=== PATIENT | female | born 1945 | race Caucasian/White ===

== ENCOUNTER 2016-11-30 17:04 | Observation (INO) | payer MEDICARE, BC ==
[2016-11-30 17:04] VITALS: BMI 37.0
[2016-11-30] MEDS ORDERED: Albuterol-Ipratrop 3 mg / 0.5 (3 ml) UD INH STA (17:49)
[2016-11-30] MEDS ORDERED: Albuterol-Ipratrop 3 mg / 0.5 (3 ml) UD IH STA ×2 (17:49→17:50)
--- NOTE | 2016-11-30 17:50 | ED PDOC ---
HPI: General Adult Time Seen by Provider: 11/30/16 17:27 Chief Complaint (Nursing): Cough, Cold, Congestion Chief Complaint (Provider): Cough History Per: Patient History/Exam Limitations: no limitations Onset/Duration Of Symptoms: Days (Yesterday) Have you had recent travel within the past 21 days to any of the following countries: [place], [place], [place] or [place]?: No Current Symptoms Are (Timing): Still Present Additional Complaint(s): Cough, congestion, runny nose. Dyspnea. Seen by Dr. Camilo today and sent to the ER for possible pneumonia eval. No chest pain. Has weakness all over. Bodyaches. No abd pain. No nausea, vomit, diarrhea. Past Medical History Vital Signs: Last Vital Signs Temp 99.3 F 11/30/16 18:06 Pulse 67 11/30/16 17:17 Resp 18 11/30/16 17:17 BP 131/66 11/30/16 17:17 Pulse Ox 91 L 11/30/16 18:23 - Medical History PMH: Arthritis, CAD, Depression, HTN, Hypercholesterolemia Denies: Diabetes - Surgical History Surgical History: Denies: CABG - Family History Family History: States: Unknown Family Hx - Living Arrangements Living Arrangements: With Family - Social History Current smoker - smoking cessation education provided: No Alcohol: None Drugs: Denies - Home Medications Home Medications: Ambulatory Orders Medication Instructions Recorded Aspirin [Ecotrin] 81 mg PO HS 11/30/16 Boniva 150 mg PO Q30D 11/30/16 Ergocalciferol (Vitamin D2) 50,000 unit PO SUN 11/30/16 [Vitamin D2] Escitalopram [Lexapro] 20 mg PO HS 11/30/16 Fluticasone Propionate [Flonase] 1 spray HEIKE BID PRN 11/30/16 Loratadine [Claritin] 10 mg PO DAILY PRN 11/30/16 Simvastatin [Zocor] 40 mg PO DAILY 11/30/16 Valsartan/Hydrochlorothiazide 1 tab PO DAILY 11/30/16 [Diovan Hct 320-25 mg Tablet] amLODIPine [Norvasc] 5 mg PO DAILY 11/30/16 - Allergies Allergies/Adverse Reactions: Allergies Allergy/AdvReac Type Severity Reaction Status Date / Time No Known Allergies Allergy Verified 11/30/16 17:16 Review of Systems ROS Statement: Except As Marked, All Systems Reviewed And Found Negative Constitutional: Positive for: Weakness ENT: Positive for: Nose Congestion Respiratory: Positive for: Cough, Shortness of Breath Neurological: Positive for: Weakness Physical Exam - Reviewed Nursing Documentation Reviewed: Yes Vital Signs Reviewed: Yes - Physical Exam Appears: Positive for: Non-toxic, No Acute Distress Head Exam: Positive for: ATRAUMATIC, NORMAL INSPECTION, NORMOCEPHALIC Skin: Positive for: Normal Color, Warm, DRY Eye Exam: Positive for: EOMI, Normal appearance, PERRL ENT: Positive for: Normal ENT Inspection Neck: Positive for: Normal, Painless ROM Cardiovascular/Chest: Positive for: Regular Rate, Rhythm Respiratory: Positive for: Decreased Breath Sounds, Wheezing (b/l). Negative for: Accessory Muscle Use Gastrointestinal/Abdominal: Positive for: Normal Exam, Bowel Sounds, Soft. Negative for: Tenderness Back: Positive for: Normal Inspection. Negative for: L CVA Tenderness, R CVA Tenderness Extremity: Positive for: Normal ROM. Negative for: Tenderness, Pedal Edema Neurologic/Psych: Positive for: Alert, Oriented - Laboratory Results Result Diagrams: 11/30/16 17:30 Interpretation Of Abn Labs: 13.1 wbc, 2.2 lactate - ECG ECG Rhythm: Positive for: Left Bundle Branch Block O2 Sat by Pulse Oximetry: 91 Pulse Ox Interpretation: Abnormal - Radiology X-Ray: Read By Radiologist X-Ray Interpretation: No Acute Disease - Progress ED Course And Treament: 180: Dr. Camilo saw pt. in office and gave rocephin. 1826: Spoke with Dr. Camilo. Will admit tele. Will give further orders when pt. reaches floor. LBBB possibly old as discussed with Dr. Camilo, but will get cardiac work up for further eval. Does not meet sepsis criteria. Disposition - Clinical Impression Clinical Impression: Bronchitis, Hypoxia - Patient ED Disposition Is Patient to be Admitted: Yes Counseled Patient/Family Regarding: Studies Performed, Diagnosis - Disposition Disposition Time: 18:53 Condition: STABLE - Pt Status Changed To: Hospital Disposition Of: Inpatient - Admit Certification Admit to Inpatient:: After my assessment, the patient will require hospitalization for at least two midnights. This is because of the severity of symptoms shown, intensity of services needed, and/or the medical risk in this patient being treated as an outpatient. - POA Present On Arrival: None
[2016-11-30] MEDS ORDERED: Albuterol-Ipratrop 3 mg / 0.5 (3 ml) UD ONE (18:00)
[2016-11-30 18:06] LABS: BASO # 0.1 K/uL (0.0-0.2); BASO % 0.8 % (0.0-2.0); EOS # 0.3 K/uL (0.0-0.7); EOS % 2.2 % (0.0-4.0); LYMPH # 5.4 K/uL (1.0-4.3); MEAN CELL VOLUME 83.2 fl (81.0-99.0); MEAN CORPUSCULAR HEMOGLOBIN 27.8 pg (27.0-31.0); MEAN CORPUSCULAR HGB CONC 33.5 g/dL (33.0-37.0); MEAN PLATELET VOLUME 7.9 fl (7.2-11.7); MONO # 0.8 K/uL (0.0-0.8); NEUT # 6.6 K/uL (1.8-7.0); NRBC % 0.2 % (0.0-0.0); RED CELL DISTRIBUTION WIDTH 14.6 % (11.5-14.5); WHITE BLOOD COUNT 13.1 K/uL (4.8-10.8)
[2016-11-30] MEDS: Sodium Chloride 0.9% 500 ML IV SCH (18:08)
[2016-11-30] MEDS ORDERED: Azithromycin 500 MG in Sodium Chloride 0.9% 250 ML IVPB ONE (18:15)
[2016-11-30 18:23] LABS: PARTIAL THROMBOPLASTIN TIME 31.1 Seconds (25.6-37.1)
[2016-11-30 18:32] LABS: ALB/GLOB RATIO 1.1 (1.0-2.1); ALKALINE PHOSPHATASE 65 U/L (38-126); ALT/SGPT 25 U/L (9-52); AST/SGOT 31 U/L (14-36); BILIRUBIN,TOTAL 0.9 mg/dl (0.2-1.3); BLOOD UREA NITROGEN 13 mg/dl (7-17); CALCIUM 9.6 mg/dL (8.4-10.2); CARBON DIOXIDE 32 mmol/L (22-30); CHLORIDE 96 mmol/L (98-107); GFR AFRICAN-AMERICAN > 60; GLUCOSE,RANDOM 114 mg/dL (65-105); MAGNESIUM 2.3 MG/DL (1.6-2.3); PHOSPHOROUS 3.5 mg/dl (2.5-4.5); SODIUM 140 mmol/l (132-148); TOTAL PROTEIN 8.4 G/DL (6.3-8.2)
[2016-11-30 18:33] LABS: POTASSIUM 3.5 MMOL/L (3.6-5.0)
--- NOTE | 2016-11-30 18:39 | RAD ---
HISTORY: Sepsis Patient COMPARISON: 10/21/2013 FINDINGS: LUNGS: The lungs are clear. PLEURA: No significant pleural effusion identified, no pneumothorax apparent. CARDIOVASCULAR: Normal. OSSEOUS STRUCTURES: No significant abnormalities. VISUALIZED UPPER ABDOMEN: Normal. OTHER FINDINGS: None. IMPRESSION: No active pulmonary disease.
[2016-11-30 18:52] LABS: ABG ALLEN TEST YES; ARTERIAL BLOOD GAS HCO3 30.6 mmol/L (21-28); ARTERIAL BLOOD GAS PH 7.54 (7.35-7.45); ARTERIAL BLOOD GAS PO2 95 mm/Hg (80-100)
[2016-11-30] MEDS ORDERED: Potassium Chloride 20 mEq ER Tab PO ONE (19:34)
[2016-11-30] MEDS ORDERED: BONIVA 150 MG PO SCH (19:45)
[2016-11-30] MEDS: methylPREDNISolone 80 MG in Sodium Chloride 0.9% 50 ML IVPB SCH (22:17)
[2016-12-01] MEDS: methylPREDNISolone 80 MG in Sodium Chloride 0.9% 50 ML IVPB SCH (00:13)
[2016-12-01] MEDS: Sodium Chloride 0.9% 500 ML IV SCH ×3 (00:19→14:00)
[2016-12-01] MEDS: Albuterol 0.083% Inhal Sol (2.5 mg/3 mL) UD INH PRN ×2 (01:41→07:54)
[2016-12-01 05:00] LABS: RBC URINE 1 /hpf (0-3); URINE BILIRUBIN NEGATIVE (NEGATIVE); URINE BLOOD NEGATIVE (NEGATIVE); URINE COLOR STRAW (YELLOW); URINE GLUCOSE (UA) >=500 mg/dL (Normal); URINE KETONE NEGATIVE (NEGATIVE); URINE LEUKOCYTE ESTERASE NEG Leu/uL (Negative); URINE PROTEIN NEGATIVE (NEGATIVE); URINE UROBILINOGEN 0.2-1.0 mg/dL (0.2-1.0); WBC URINE 1 /hpf (0-5)
[2016-12-01 08:10] LABS: HEMATOCRIT 38.8 % (34.0-47.0); MEAN CELL VOLUME 82.8 fl (81.0-99.0); MEAN CORPUSCULAR HEMOGLOBIN 27.7 pg (27.0-31.0); MEAN CORPUSCULAR HGB CONC 33.5 g/dL (33.0-37.0); RED CELL DISTRIBUTION WIDTH 14.8 % (11.5-14.5); WHITE BLOOD COUNT 5.9 K/uL (4.8-10.8)
[2016-12-01 08:16] LABS: BLOOD UREA NITROGEN 18 mg/dl (7-17); CALCIUM 8.8 mg/dL (8.4-10.2); CARBON DIOXIDE 26 mmol/L (22-30); CHLORIDE 100 mmol/L (98-107); GFR AFRICAN-AMERICAN > 60; GLUCOSE,RANDOM 212 mg/dL (65-105); SODIUM 138 mmol/l (132-148)
[2016-12-01 08:22] LABS: POTASSIUM 3.7 MMOL/L (3.6-5.0)
[2016-12-01] MEDS ORDERED: Azithromycin 500 MG in Sodium Chloride 0.9% 250 ML IVPB SCH (09:00)
[2016-12-01] MEDS ORDERED: Enoxaparin 40 mg Syringe SC SCH (09:00)
[2016-12-01] MEDS ORDERED: methylPREDNISolone 60 MG in Sodium Chloride 0.9% 50 ML IVPB SCH (09:00)
[2016-12-01] MEDS ORDERED: Patient's Own Med (Valsartan/Hydrochlorothiazide [Diovan Hct 320-25 Mg Tablet] 1 TAB) PO SCH (09:00)
--- NOTE | 2016-12-01 09:34 | CP.PCM.CON ---
History of Present Illness - History of Present Illness History of Present Illness: Asked to evaluate this 71-year-old Hungarian speaking female because of cough and shortness of breath. She abruptly developed the above symptoms on the day of admission associated with headache, sore throat, cough and chills along with chest and abdominal pain thought to be secondary to her coughing. She had gone to bed the night before feeling well but awoke with the above symptoms. Her symptoms progressed throughout the day and she saw her primary medical doctor as an outpatient and was advised to come to the emergency room for further evaluation. There was no nausea, vomiting or diarrhea. There were no ill contacts. There was nasal congestion associated with the above symptoms along with a sensation of postnasal drip, but no sputum was expectorated and there was no hemoptysis. She does have a prior history of pneumonia in the remote past. She was a brief cigarette smoker in the remote past as well. There is no history of bronchial asthma. She relates no history of allergies. A chest x-ray done in the emergency department showed no evidence of consolidation or pleural effusion but did cardiomegaly with straightening of left heart border. Past Patient History - Past Medical History & Family History Past Medical History?: Yes - Past Social History Smoking Status: Former Smoker Chewing Tobacco Use: No Cigar Use: No Alcohol: Social Drugs: Denies - CARDIAC Hx Cardiac Disorders: Yes Hx Hypercholesterolemia: Yes Hx Hypertension: Yes - PULMONARY Hx Pneumonia: Yes - NEUROLOGICAL Hx Neurological Disorder: No - HEENT Hx HEENT Problems: Yes - RENAL Hx Chronic Kidney Disease: No - ENDOCRINE/METABOLIC Hx Endocrine Disorders: No - HEMATOLOGICAL/ONCOLOGICAL Hx Blood Disorders: No - INTEGUMENTARY Hx Dermatological Problems: No - MUSCULOSKELETAL/RHEUMATOLOGICAL Hx Arthritis: Yes Hx Falls: No - GASTROINTESTINAL Hx Gastrointestinal Disorders: No - GENITOURINARY/GYNECOLOGICAL Hx Genitourinary Disorders: No - PSYCHIATRIC Hx Depression: Yes Hx Substance Use: No - SURGICAL HISTORY Hx Section: Yes Hx Coronary Artery Bypass Graft: No - ANESTHESIA Hx Anesthesia: Yes Hx Anesthesia Reactions: No Hx Malignant Hyperthermia: No Has any member of the family had a problem w/ anesthesia?: No Meds Allergies/Adverse Reactions: Allergies Allergy/AdvReac Type Severity Reaction Status Date / Time No Known Allergies Allergy Verified 11/30/16 17:16 - Medications Medications: Current Medications Albuterol Sulfate (Albuterol 0.083% Inhal Yanira (2.5 Mg/3 Ml) Ud) 2.5 mg INH RQ6 PRN PRN Reason: Shortness of Breath Last Admin: 12/01/16 07:54 Dose: 2.5 mg Amlodipine Besylate (Norvasc) 5 mg PO DAILY [facility] Last Admin: 12/01/16 08:55 Dose: 5 mg Aspirin (Ecotrin) 81 mg PO HS [facility] Last Admin: 11/30/16 22:59 Dose: 81 mg Enoxaparin Sodium (Lovenox) 40 mg SC DAILY [facility] PRN Reason: Protocol Last Admin: 12/01/16 08:55 Dose: 40 mg Ergocalciferol (Drisdol 50,000 Intl Units Cap) 1 cap PO SUN [facility] Escitalopram Oxalate (Lexapro) 20 mg PO HS [facility] Last Admin: 11/30/16 22:59 Dose: 20 mg Fluticasone Propionate (Flonase) 1 spr HEIKE BID PRN PRN Reason: Allergy symptoms Home Med (Boniva ) 150 mg PO Q30D [facility] Hydrochlorothiazide (Hydrodiuril) 25 mg PO DAILY [facility] Last Admin: 12/01/16 08:55 Dose: 25 mg Sodium Chloride (Sodium Chloride 0.9%) 500 mls @ 100 mls/hr IV .Q5H [facility] Last Admin: 12/01/16 00:19 Dose: Not Given Ceftriaxone Sodium 1 gm/ (Sodium Chloride) 100 mls @ 100 mls/hr IVPB DAILY [facility] Azithromycin 500 mg/ Sodium (Chloride) 250 mls @ 250 mls/hr IVPB DAILY [facility] Methylprednisolone 60 mg/ (Sodium Chloride) 50 mls @ 100 mls/hr IVPB Q12 [facility] Loratadine (Claritin) 10 mg PO DAILY PRN PRN Reason: Allergy symptoms Valsartan (Diovan) 320 mg PO DAILY [facility] Last Admin: 12/01/16 08:54 Dose: 320 mg Physical Exam - Additional Findings Additional findings: Well-nourished, well-developed female sitting in wheelchair at the time of examination. Awake, alert and cooperative with the examination. Pharynx is pink and mucous membranes are moist. No exudate. Conjunctivae are pink and there is no scleral icterus. Nares are patent bilaterally. No bleeding or exudate. Neck is supple and trachea is midline. No neck vein distention or carotid bruit. No palpable lymphadenopathy. No dullness on chest percussion. Equal expansion. Breath sounds are well heard bilaterally. No rales. No wheezes. Sonorous rhonchi are heard in the dependant zones posteriorly. No bronchial breathing or egophony. Heart sounds are well heard and rhythm is regular. Systolic ejection murmur is heard at the base. Abdomen is soft and nontender with normal bowel sounds. No ankle edema. No cyanosis. Both feet are warm to touch. Results - Vital Signs Recent Vital Signs: Last Vital Signs Temp 97.6 F 12/01/16 08:00 Pulse 57 L 12/01/16 08:55 Resp 20 12/01/16 08:00 BP 125/96 H 12/01/16 08:55 Pulse Ox 96 12/01/16 08:00 - Labs Result Diagrams: 12/01/16 08:00 12/01/16 08:00 Labs: Laboratory Results - last 24 hr 11/30/16 11/30/16 12/01/16 21:45 21:45 03:30 WBC RBC Hgb Hct MCV MCH MCHC RDW Plt Count D-Dimer, Quantitative 0.26 Sodium Potassium Chloride Carbon Dioxide Anion Gap BUN Creatinine Est GFR ( Amer) Est GFR (Non-Af Amer) Random Glucose Calcium Troponin I < 0.0120 Urine Color Straw Urine Clarity Clear Urine pH 6.0 Ur Specific [place] 1.006 Urine Protein Negative Urine Glucose (UA) >=500 Urine Ketones Negative Urine Blood Negative Urine Nitrate Negative Urine Bilirubin Negative Urine Urobilinogen 0.2-1.0 Ur Leukocyte Esterase Neg Urine RBC (Auto) 1 Urine Microscopic WBC 1 Ur Squamous Epith Cells 2 12/01/16 12/01/16 08:00 08:00 WBC 5.9 D RBC 4.69 Hgb 13.0 Hct 38.8 MCV 82.8 MCH 27.7 MCHC 33.5 RDW 14.8 H Plt Count 195 D-Dimer, Quantitative Sodium 138 Potassium 3.7 Chloride 100 Carbon Dioxide 26 Anion Gap 16 BUN 18 H Creatinine 0.6 L Est GFR ( Amer) > 60 Est GFR (Non-Af Amer) > 60 Random Glucose 212 H Calcium 8.8 Troponin I Urine Color Urine Clarity Urine pH Ur Specific [place] Urine Protein Urine Glucose (UA) Urine Ketones Urine Blood Urine Nitrate Urine Bilirubin Urine Urobilinogen Ur Leukocyte Esterase Urine RBC (Auto) Urine Microscopic WBC Ur Squamous Epith Cells Assessment & Plan (1) Influenza-like illness Status: Acute Priority: High (2) Posterior rhinorrhea Status: Acute Priority: High (3) Acute rhinosinusitis Status: Acute Priority: High (4) Pneumonia Status: Acute Priority: High Comment: Repeat chest x-ray PA and lateral does reveal hilar prominence bilaterally with vascular congestive pattern as well as possible early infiltrate infrahilar region of the right lower lobe. - Assessment and Plan (Free Text) Plan: Agree with current plan including treatment with empiric antibiotics for community-acquired pneumonia. Influenza A/B nasal swab requested. Would add oseltamivir if positive. - Date & Time Date: 12/01/16 Time: 09:57
[2016-12-01 12:04] VITALS: TEMP 98.4
--- NOTE | 2016-12-01 13:01 | RAD ---
HISTORY: r/o pneumonia COMPARISON: 11/30/2016 TECHNIQUE: Chest PA and lateral FINDINGS: LUNGS: Mild left perihilar interstitial changes. PLEURA: No significant pleural effusion identified. No pneumothorax apparent. CARDIOVASCULAR: Normal. OSSEOUS STRUCTURES: No significant abnormalities. VISUALIZED UPPER ABDOMEN: Normal. OTHER FINDINGS: None. IMPRESSION: Mild left perihilar interstitial changes possibly vascular.
--- NOTE | 2016-12-01 14:07 | CON ---
DATE: 12/01/2016 REASON FOR CONSULTATION: Shortness of breath and cough. HISTORY OF PRESENT ILLNESS: The patient is a 71-year-old Latvian female who is a former smoker, quit 20 years ago, presented because of shortness of breath and cough. The patient denies any retrosternal chest pain and is unaware of any history of heart attack in the past. The patient stated that she has history of asthma. She also has a history of pneumonia a few years ago. The patient does report improvement of her shortness of breath since admission yesterday. SOCIAL HISTORY: The patient is a former smoker, quit 20 years ago. MEDICATIONS: Albuterol inhaler 2.5 mg q. 6 hours, Zithromax 500 mg intravenously daily, Rocephin 1 gram intravenously daily, Claritin 10 mg daily, Diovan 320 mg daily, aspirin 81 mg once a day, Flonase 1 spray nasally twice a day, hydrochlorothiazide 25 mg daily, Lexapro 20 mg once a day, Lovenox 40 mg subcutaneous once a day, Norvasc 5 mg once a day, Solu-Medrol 60 mg intravenously q. 6 hours. Normal saline at 100 mL an hour, that was discontinued today. REVIEW OF SYSTEMS: No fever or chills. No dizziness or syncope. No palpitation, no nausea or vomiting. PHYSICAL EXAMINATION: GENERAL: The patient is an elderly female who does not appear to be in acute distress. VITAL SIGNS: Blood pressure 121/68, heart rate 68, temperature 98.4, respirations 18. HEENT: Normocephalic. NECK: No JVD. CHEST: Bilateral rhonchi anteriorly. No wheeze or crackles. HEART: S1, S2 regular. ABDOMEN: Soft. EXTREMITIES: No edema. LABORATORY DATA: CBC: WBC 5.9, hemoglobin , hematocrit 38.8, platelet count 195,000. Yesterday's white count _elevated. SMA-7: Sodium 138, potassium 3.7 , chloride 100, CO2 26, glucose 212, BUN 18, creatinine 0.6. Two sets of troponins were negative. EKG revealed sinus rhythm at a rate of 73, left bundle branch block. Chest x-ray revealed normal cardiac silhouette and bilateral hilar infiltrates. ASSESSMENT: 1. Consider underlying pneumonia. 2. Abnormal EKG with evidence of left bundle branch block. 3. Hypertension. 4. Bronchospasm. RECOMMENDATIONS: Continue current IV Zithromax and IV Rocephin. Continue Diovan at 320 mg once a day, aspirin 81 mg once a day, hydrochlorothiazide 25 mg once a day, Lovenox 40 mg subcutaneous once a day, methylprednisolone 60 mg intravenous twice a day, amlodipine 5 mg once a day. I will review the echocardiographic study performed today. Cullen Arzate MD cc: [id number] TT: 12/01/2016 14:07:09 Confirmation # [id number] Dictation # [id number] MTDD
[2016-12-01 16:07] VITALS: BP 127/70; PULSE 71; RESP 20; O2SAT 97
--- NOTE | 2016-12-01 17:05 | CP.PCM.HP ---
History of Present Illness - History of Present Illness History of Present Illness: Patient is 71 y/o lady presented in the ER for SOB, wheezing and hypoxia. Initial dx was suggestive of pneumonia. She well imbrued with steroid and antx rx. The repeated cxr reveled no pneumonia. Patient stable with Nl O2 sat Ambulating with no problems. Chance admission status to obs (44), will dc home with f/u in my office in 2 days Present on Admission - Present on Admission Any Indicators Present on Admission: No Review of Systems - Constitutional Constitutional: As Per HPI - EENT Eyes: As Per HPI Ears: As Per HPI Nose/Mouth/Throat: As Per HPI - Breasts Breasts: As Per HPI - Cardiovascular Cardiovascular: As Per HPI - Respiratory Respiratory: Dyspnea, Wheezing - Gastrointestinal Gastrointestinal: As Per HPI - Musculoskeletal Musculoskeletal: As Per HPI - Integumentary Integumentary: As Per HPI - Neurological Neurological: As Per HPI Past Patient History - Past Medical History & Family History Past Medical History?: Yes - Past Social History Smoking Status: Former Smoker Chewing Tobacco Use: No Cigar Use: No Alcohol: Social Drugs: Denies - CARDIAC Hx Cardiac Disorders: Yes Hx Hypercholesterolemia: Yes Hx Hypertension: Yes - PULMONARY Hx Pneumonia: Yes - NEUROLOGICAL Hx Neurological Disorder: No - HEENT Hx HEENT Problems: Yes - RENAL Hx Chronic Kidney Disease: No - ENDOCRINE/METABOLIC Hx Endocrine Disorders: No - HEMATOLOGICAL/ONCOLOGICAL Hx Blood Disorders: No - INTEGUMENTARY Hx Dermatological Problems: No - MUSCULOSKELETAL/RHEUMATOLOGICAL Hx Arthritis: Yes Hx Falls: No - GASTROINTESTINAL Hx Gastrointestinal Disorders: No - GENITOURINARY/GYNECOLOGICAL Hx Genitourinary Disorders: No - PSYCHIATRIC Hx Depression: Yes Hx Substance Use: No - SURGICAL HISTORY Hx Section: Yes Hx Coronary Artery Bypass Graft: No - ANESTHESIA Hx Anesthesia: Yes Hx Anesthesia Reactions: No Hx Malignant Hyperthermia: No Has any member of the family had a problem w/ anesthesia?: No Meds Home Medications: Home Medication List Medication Instructions Recorded Confirmed Type Albuterol Sulfate [Proair Hfa] 200 puff IH Q6 30 Days 12/01/16 Rx Methylprednisolone [Medrol Dose 4 mg PO DAILY #21 mg 12/01/16 Rx Pack (21 tabs)] Moxifloxacin [Avelox] 400 mg PO DAILY #7 tab 12/01/16 Rx Allergies/Adverse Reactions: Allergies Allergy/AdvReac Type Severity Reaction Status Date / Time No Known Allergies Allergy Verified 11/30/16 17:16 Physical Exam - Constitutional Appears: Well - Head Exam Head Exam: ATRAUMATIC, NORMAL INSPECTION, NORMOCEPHALIC - Eye Exam Eye Exam: EOMI, Normal appearance, PERRL Pupil Exam: NORMAL ACCOMODATION - ENT Exam ENT Exam: Mucous Membranes Moist - Neck Exam Neck exam: Positive for: Normal Inspection - Respiratory Exam Respiratory Exam: Clear to Auscultation Bilateral - Cardiovascular Exam Cardiovascular Exam: REGULAR RHYTHM, +S1, +S2 - GI/Abdominal Exam GI & Abdominal Exam: Normal Bowel Sounds - Extremities Exam Extremities exam: Positive for: normal inspection - Neurological Exam Neurological exam: Alert, CN II-XII Intact, Oriented x3, Reflexes Normal - Psychiatric Exam Psychiatric exam: Normal Affect Results - Vital Signs Recent Vital Signs: Last Vital Signs Temp 98.4 F 12/01/16 16:07 Pulse 71 12/01/16 16:07 Resp 20 12/01/16 16:07 BP 127/70 12/01/16 16:07 Pulse Ox 97 12/01/16 16:07 - Labs Result Diagrams: 12/01/16 08:00 12/01/16 08:00 Labs: Laboratory Results - last 24 hr 11/30/16 11/30/16 12/01/16 21:45 21:45 03:30 WBC RBC Hgb Hct MCV MCH MCHC RDW Plt Count D-Dimer, Quantitative 0.26 Sodium Potassium Chloride Carbon Dioxide Anion Gap BUN Creatinine Est GFR ( Amer) Est GFR (Non-Af Amer) Random Glucose Calcium Troponin I < 0.0120 Urine Color Straw Urine Clarity Clear Urine pH 6.0 Ur Specific [place] 1.006 Urine Protein Negative Urine Glucose (UA) >=500 Urine Ketones Negative Urine Blood Negative Urine Nitrate Negative Urine Bilirubin Negative Urine Urobilinogen 0.2-1.0 Ur Leukocyte Esterase Neg Urine RBC (Auto) 1 Urine Microscopic WBC 1 Ur Squamous Epith Cells 2 Influenza Typ A,B (EIA) 12/01/16 12/01/16 12/01/16 08:00 08:00 12:38 WBC 5.9 D RBC 4.69 Hgb 13.0 Hct 38.8 MCV 82.8 MCH 27.7 MCHC 33.5 RDW 14.8 H Plt Count 195 D-Dimer, Quantitative Sodium 138 Potassium 3.7 Chloride 100 Carbon Dioxide 26 Anion Gap 16 BUN 18 H Creatinine 0.6 L Est GFR ( Amer) > 60 Est GFR (Non-Af Amer) > 60 Random Glucose 212 H Calcium 8.8 Troponin I Urine Color Urine Clarity Urine pH Ur Specific [place] Urine Protein Urine Glucose (UA) Urine Ketones Urine Blood Urine Nitrate Urine Bilirubin Urine Urobilinogen Ur Leukocyte Esterase Urine RBC (Auto) Urine Microscopic WBC Ur Squamous Epith Cells Influenza Typ A,B (EIA) Negative for flu a/b Assessment & Plan (1) Asthmatic bronchitis Status: Acute (2) Bronchitis Status: Acute (3) Cough Status: Acute Priority: High (4) Hypoxia Status: Resolved (5) Pneumonia Status: Ruled-out Priority: High - Assessment and Plan (Free Text) Plan: Patient stable for dc will follow as OP. Continue oral medications
[2016-12-02] MEDS ORDERED: Ergocalciferol 50,000 Intl Units Cap PO SCH (09:00)
--- NOTE | 2016-12-02 14:43 | CARD ---
APPROVED REPORT EKG Measurement Heart [id number] <Conclusion> Normal sinus rhythm Left bundle branch block Abnormal ECG
--- NOTE | 2016-12-03 18:50 | CARD ---
APPROVED REPORT EXAM: Two-dimensional and M-mode echocardiogram with Doppler and color Doppler. Other Information Quality : Technically LimitedRhythm : Technically limited study due to body habitus. INDICATION ICD: Cardiomegaly, CHF 2D DIMENSIONS IVSd0.72 (0.7-1.1cm)LVDd4.35 (3.9-5.9cm) LVOT Diameter1.74 (1.8-2.4cm)PWd1.07 (0.7-1.1cm) IVSs1.13 (0.8-1.2cm)LVDs2.52 (2.5-4.0cm) FS (%) 42.2 %PWs1.46 (0.8-1.2cm) Aortic Valve AoV Peak Lcwnujty270.3cm/sAoV VTI43.3cmAO Peak GR.17mmHg LVOT Peak Tqubqbly531.1cm/Francis Mean GR.9mmHgAVA (VMAX)0.94cm2 Mitral Valve MV E [place]78.6cm/sMV DECEL [id number] A Xpilwkke559.1cm/s MV KUR96rcC/A ratio0.8MVA (PHT)2.22cm2 TDI Lateral E' Peak V9.13cm/sMedial E' Peak V9.78cm/sE/Lateral E'10.1 E/Medial E'9.5 Pulmonary Valve PV Peak Kjvhhkke086.9cm/s Tricuspid Valve TR Peak Oemlbnfa232vo/sRAP [id number] Peak Gr.40mmHg LLII37dzVw LEFT VENTRICLE The left ventricle is normal size. There is normal left ventricular wall thickness. The left ventricular function is normal. The left ventricular ejection fraction is within the normal range. The Ejection Fraction is 60-65%. There is normal LV segmental wall motion. The left ventricular diastolic function is normal. No left ventricle thrombus noted on this study. There is no mass noted in the left ventricle. RIGHT VENTRICLE The right ventricle is normal size. There is normal right ventricular wall thickness. The right ventricular systolic function is normal. ATRIA The left atrium size is normal. The right atrium size is normal. The interatrial septum is intact with no evidence for an atrial septal defect. AORTIC VALVE The aortic valve is normal in structure and function. No aortic regurgitation is present. There is no aortic valvular stenosis. There is no aortic valvular vegetation. MITRAL VALVE The mitral valve is normal in structure and function. There is no evidence of mitral valve prolapse. There is no mitral valve stenosis. There is no mitral valve regurgitation noted. TRICUSPID VALVE The tricuspid valve is normal in structure and function. There is no tricuspid valve regurgitation noted. There is no tricuspid valve prolapse or vegetation. There is no tricuspid valve stenosis. PULMONIC VALVE The pulmonary valve is normal in structure and function. There is no pulmonic valvular regurgitation. There is no pulmonic valvular stenosis. GREAT VESSELS The aortic root is normal in size. The ascending aorta is normal in size. The pulmonary artery is normal. The IVC is normal in size and collapses >50% with inspiration. PERICARDIAL EFFUSION The pericardium appears normal. There is no pleural effusion. <Conclusion> The left ventricle is normal size. The left ventricular function is normal. The left ventricular ejection fraction is within the normal range. The Ejection Fraction is 60-65%.
== END 2016-12-01 18:02 | disposition home or self-care (01) ==
LOC: H.ER 17:04 → INTOOBSV 18:57 → H.ERHOLD 18:57 → H.TEL 21:54
PROVIDERS: ADMIT Internal Medicine; ATTEND Internal Medicine
DX: J45.909 Unspecified asthma, uncomplicated (principal); E78.00 Pure hypercholesterolemia, unspecified; I25.10 Atherosclerotic heart disease of native coronary artery without angina pectoris; I44.7 Left bundle-branch block, unspecified; R09.02 Hypoxemia; Z87.891 Personal history of nicotine dependence; I10 Essential (primary) hypertension; F32.9 Major depressive disorder, single episode, unspecified; M19.90 Unspecified osteoarthritis, unspecified site
CPT/HCPCS: 36415; 71010; 71020; 80048; 80053; 81003; 82803; 83735; 83880; 84100; 84484; 85025; 85027; 85378; 85610; 85730; 86738; 87040; 87804; 93005; 93306; 94150; 94640; 96374; 99285; G0378; J0456; J0696; J1650; J2930; J7040

== ENCOUNTER 2017-04-08 16:14 | Emergency (ER) | payer MEDICARE, BC ==
[2017-04-08 16:15] VITALS: BMI 37.0
[2017-04-08 16:24] VITALS: BP 135/60; PULSE 74; RESP 18; TEMP 98.6; O2SAT 98
[2017-04-08] MEDS ORDERED: Sodium Chloride 0.9% 1,000 ML IV STA (16:44)
--- NOTE | 2017-04-08 17:19 | ED PDOC ---
HPI: General Adult Time Seen by Provider: 04/08/17 16:20 Chief Complaint (Nursing): GI Problem Chief Complaint (Provider): Dehydration, URI History Per: Patient History/Exam Limitations: no limitations Onset/Duration Of Symptoms: Days Have you had recent travel within the past 21 days to any of the following countries: [place], [place], [place] or [place]?: No Current Symptoms Are (Timing): Still Present Additional History Per: Patient Additional Complaint(s): 71yo female, past medical history of hypertension, hypercholesterolemia, cardiac stents, is sent to the ED by her PCP Dr. Camilo due to dehydration and a recent diagnosis of UTI. Patient reports 6 days ago, she had vomiting and diarrhea for 3 days. Patient reports since the past 3 days, she has not had diarrhea but is feeling nauseous and weak; states she has had decreased PO intake. Patient reports she visited her PCP today and was diagnosed with a UTI and given antibiotics; patient denies any improvement in her symptoms. She offers no other medical complaints. Past Medical History Reviewed: Historical Data, Nursing Documentation, Vital Signs Vital Signs: Last Vital Signs Temp 98.6 F 04/08/17 16:19 Pulse 74 04/08/17 16:19 Resp 18 04/08/17 16:19 BP 135/60 04/08/17 16:19 Pulse Ox 98 04/09/17 20:45 - Medical History PMH: Arthritis, CAD, Depression, HTN, Hypercholesterolemia, Pneumonia Denies: Diabetes, Chronic Kidney Disease - Surgical History Surgical History: Coronary Stent Denies: CABG - Family History Family History: States: No Known Family Hx, Unknown Family Hx - Social History Current smoker - smoking cessation education provided: No Alcohol: None Drugs: Denies - Home Medications Home Medications: Ambulatory Orders Medication Instructions Recorded Aspirin [Ecotrin] 81 mg PO HS 11/30/16 Boniva 150 mg PO Q30D 11/30/16 Ergocalciferol (Vitamin D2) 50,000 unit PO SUN 11/30/16 [Vitamin D2] Escitalopram [Lexapro] 20 mg PO HS 11/30/16 Fluticasone Propionate [Flonase] 1 spray HEIKE BID PRN 11/30/16 Loratadine [Claritin] 10 mg PO DAILY PRN 11/30/16 Simvastatin [Zocor] 40 mg PO DAILY 11/30/16 Valsartan/Hydrochlorothiazide 1 tab PO DAILY 11/30/16 [Diovan Hct 320-25 mg Tablet] amLODIPine [Norvasc] 5 mg PO DAILY 11/30/16 Albuterol Sulfate [Proair Hfa] 200 puff IH Q6 30 Days inh 12/01/16 Methylprednisolone [Medrol Dose 4 mg PO DAILY #21 mg 12/01/16 Pack (21 tabs)] Moxifloxacin [Avelox] 400 mg PO DAILY #7 tab 12/01/16 Nitrofurantoin Macrocrystals 100 mg PO BID #14 cap 04/08/17 [Macrobid] - Allergies Allergies/Adverse Reactions: Allergies Allergy/AdvReac Type Severity Reaction Status Date / Time No Known Allergies Allergy Verified 04/08/17 16:19 Review of Systems ROS Statement: Except As Marked, All Systems Reviewed And Found Negative Constitutional: Positive for: Weakness. Negative for: Fever Gastrointestinal: Positive for: Nausea, Vomiting, Diarrhea Physical Exam - Reviewed Nursing Documentation Reviewed: Yes Vital Signs Reviewed: Yes - Physical Exam Appears: Positive for: Non-toxic, No Acute Distress Head Exam: Positive for: ATRAUMATIC, NORMAL INSPECTION, NORMOCEPHALIC Skin: Positive for: Warm Eye Exam: Positive for: Normal appearance ENT: Positive for: Other (wet mucuous membranes) Neck: Positive for: Supple Cardiovascular/Chest: Positive for: Regular Rate, Rhythm Respiratory: Positive for: Normal Breath Sounds. Negative for: Respiratory Distress Gastrointestinal/Abdominal: Positive for: Soft. Negative for: Tenderness Neurologic/Psych: Positive for: Alert, Oriented - Laboratory Results Result Diagrams: 04/08/17 17:35 04/08/17 17:35 - ECG O2 Sat by Pulse Oximetry: 98 (RA) Pulse Ox Interpretation: Normal Medical Decision Making Medical Decision Making: Time: 1642 Impression: Abdominal discomfort and weakness; recent diagnosis of UTI Plan: -- Labs -- IV Fluids -- Urine culture Reassess labs reveiwed, wnl ua positive for UTI pt feels fine, tolerating po Time: 1914 Labs reviewed and within normal limits. Case discussed with Dr. Camilo, who agrees with plan to give patient 1 dose of Rocephin here and to go home with prescription for PO Macrobid. Dr. Camilo states he will follow up with the urine culture. Patient stable for discharge home. Scribe Attestation: Documented by Naila Lynch acting as a scribe for Shayan Vigil MD. Provider Attestation: All medical record entries made by the Scribe were at my direction and personally dictated by me. I have reviewed the chart and agree that the record accurately reflects my personal performance of the history, physical exam, medical decision making, and the department course for this patient. I have also personally directed, reviewed, and agree with the discharge instructions and disposition. Disposition - Clinical Impression Clinical Impression: UTI (urinary tract infection) - Patient ED Disposition Is Patient to be Admitted: No Counseled Patient/Family Regarding: Studies Performed, Diagnosis, Need For Followup - Disposition Referrals: José Luis Camilo MD [Staff Provider] - Disposition: Routine/Home Disposition Time: 19:00 Condition: IMPROVED Additional Instructions: follow up with Dr Camilo in 2 days. He will follow up the urine culture. return to the ED with any worsening or concerning symptoms Prescriptions: Nitrofurantoin Macrocrystals [Macrobid] 100 mg PO BID #14 cap Instructions: Urinary Tract Infection in Women (ED) Forms: [employer] (Portuguese)
[2017-04-08 17:40] LABS: BASO # 0.1 K/uL (0.0-0.2); EOS % 0.2 % (0.0-4.0); HEMATOCRIT 40.2 % (34.0-47.0); LYMPH # 2.5 K/uL (1.0-4.3); LYMPH % 22.5 % (20.0-40.0); MEAN CELL VOLUME 82.6 fl (81.0-99.0); MEAN CORPUSCULAR HEMOGLOBIN 27.9 pg (27.0-31.0); MEAN CORPUSCULAR HGB CONC 33.7 g/dL (33.0-37.0); MEAN PLATELET VOLUME 7.7 fl (7.2-11.7); MONO # 0.9 K/uL (0.0-0.8); MONO % 8.5 % (0.0-10.0); NEUT # 7.5 K/uL (1.8-7.0); NEUT % 67.8 % (50.0-75.0); RED CELL DISTRIBUTION WIDTH 14.4 % (11.5-14.5)
[2017-04-08 17:52] LABS: ALB/GLOB RATIO 1.2 (1.0-2.1); ALKALINE PHOSPHATASE 68 U/L (38-126); ALT/SGPT 27 U/L (9-52); AST/SGOT 33 U/L (14-36); BILIRUBIN,TOTAL 1.1 mg/dl (0.2-1.3); BLOOD UREA NITROGEN 17 mg/dl (7-17); CARBON DIOXIDE 32 mmol/L (22-30); CHLORIDE 91 mmol/L (98-107); GFR AFRICAN-AMERICAN > 60; GLUCOSE,RANDOM 118 mg/dL (65-105); POTASSIUM 3.8 MMOL/L (3.6-5.0); SODIUM 134 mmol/l (132-148); TOTAL PROTEIN 7.7 G/DL (6.3-8.2)
[2017-04-08 17:54] LABS: RBC URINE 28 /hpf (0-3); URINE BACTERIA MOD (<OCC); URINE BILIRUBIN NEGATIVE (NEGATIVE); URINE BLOOD MODERATE (NEGATIVE); URINE COLOR AMBER (YELLOW); URINE GLUCOSE (UA) NEG (Normal); URINE KETONE 20 mg/dL (NEGATIVE); URINE LEUKOCYTE ESTERASE LARGE Leu/uL (Negative); URINE PROTEIN 100 mg/dL (NEGATIVE); URINE UROBILINOGEN 0.2-1.0 mg/dL (0.2-1.0); WBC CLUMPS OCC /hpf; WBC URINE 1285 /hpf (0-5)
[2017-04-08] MEDS ORDERED: cefTRIAXone IV 1 gm in Dextros 50 ML IVPB ONE ×2 (18:00→18:01)
== END 2017-04-08 19:51 | disposition home or self-care (01) ==
LOC: H.ER 16:14
DX: E86.0 Dehydration (principal); N39.0 Urinary tract infection, site not specified; E78.00 Pure hypercholesterolemia, unspecified; F32.9 Major depressive disorder, single episode, unspecified; I10 Essential (primary) hypertension; I25.10 Atherosclerotic heart disease of native coronary artery without angina pectoris; Z79.82 Long term (current) use of aspirin; Z95.5 Presence of coronary angioplasty implant and graft
CPT/HCPCS: 80053; 81003; 85025; 87086; 87181; 96365; 99283; J0696; J7040

== ENCOUNTER 2017-06-27 18:17 | Emergency (ER) | payer MEDICARE, BC ==
[2017-06-27 18:17] VITALS: BMI 37.0
[2017-06-27 18:26] VITALS: O2SAT 96
[2017-06-27] MEDS ORDERED: Albuterol-Ipratrop 3 mg / 0.5 (3 ml) UD INH STA (18:58)
--- NOTE | 2017-06-27 19:04 | ED PDOC ---
HPI: General Adult Time Seen by Provider: 06/27/17 18:38 Chief Complaint (Nursing): Cough, Cold, Congestion History Per: Patient, Family (Iris (daughter)) Additional Complaint(s): Pt. states for the past week she's had a cough productive yellow/green sputum and over the past 3 days symptoms have worsened. States she's now noticed some blood mixed in with her sputum and she's become SOB. Further states that she was seen by Dr. Camilo, PMD, yesterday who prescribed her Augmentin. States she took first dose today on an empty stomach and 2-3 hours later she vomited twice. Denies hematemesis, chest pain, hx of DVT, leg pain, recent travel. Of note, pt.'s 2 y/o grand daughter also had similar symptoms which began prior to her symptoms beginning. Past Medical History Reviewed: Historical Data, Nursing Documentation, Vital Signs Vital Signs: Last Vital Signs Temp 99.8 F H 06/27/17 18:19 Pulse 79 06/27/17 19:30 Resp 18 06/27/17 18:19 BP 152/72 H 06/27/17 18:19 Pulse Ox 96 06/27/17 19:30 - Medical History PMH: Arthritis, CAD, Depression, HTN, Hypercholesterolemia, Pneumonia Denies: Diabetes, Chronic Kidney Disease - Surgical History Surgical History: Coronary Stent Denies: CABG - Family History Family History: States: Unknown Family Hx - Home Medications Home Medications: Ambulatory Orders Medication Instructions Recorded Aspirin [Ecotrin] 81 mg PO HS 11/30/16 Boniva 150 mg PO Q30D 11/30/16 Ergocalciferol (Vitamin D2) 50,000 unit PO SUN 11/30/16 [Vitamin D2] Escitalopram [Lexapro] 20 mg PO HS 11/30/16 Fluticasone Propionate [Flonase] 1 spray HEIKE BID PRN 11/30/16 Simvastatin [Zocor] 40 mg PO DAILY 11/30/16 Valsartan/Hydrochlorothiazide 1 tab PO DAILY 11/30/16 [Diovan Hct 320-25 mg Tablet] amLODIPine [Norvasc] 5 mg PO DAILY 11/30/16 Albuterol Sulfate [Proair Hfa] 200 puff IH Q6 30 Days inh 12/01/16 Amoxicillin/Potassium Clav 1 tab PO BID 06/27/17 [Amox-Clav 875-125 mg Tablet] Ibandronate Sodium [Boniva] 150 mg PO Q30D 06/27/17 Oseltamivir [Tamiflu Cap] 75 mg PO DAILY 06/27/17 Simvastatin [Zocor] 40 mg PO DAILY 06/27/17 amLODIPine [Norvasc] 5 mg PO DAILY 06/27/17 - Allergies Allergies/Adverse Reactions: Allergies Allergy/AdvReac Type Severity Reaction Status Date / Time No Known Allergies Allergy Verified 06/27/17 18:19 Review of Systems ROS Statement: Except As Marked, All Systems Reviewed And Found Negative Cardiovascular: Positive for: Chest Pain Gastrointestinal: Positive for: Nausea, Vomiting. Negative for: Abdominal Pain Musculoskeletal: Positive for: Back Pain Physical Exam - Reviewed Nursing Documentation Reviewed: Yes Vital Signs Reviewed: Yes - Physical Exam Appears: Positive for: Well, Non-toxic, No Acute Distress Head Exam: Positive for: ATRAUMATIC, NORMAL INSPECTION, NORMOCEPHALIC Skin: Positive for: Normal Color, Warm. Negative for: Rash Eye Exam: Positive for: EOMI, PERRL, Conjunctival injection (R eye conjunctiva injection). Negative for: Periorbital swelling, Periorbital tenderness, Scleral icterus ENT: Positive for: Normal ENT Inspection Neck: Positive for: Normal, Painless ROM Cardiovascular/Chest: Positive for: Regular Rate, Rhythm Respiratory: Positive for: Wheezing (b/l expiratory wheezing). Negative for: Accessory Muscle Use, Crackles, Rales, Rhonchi, Respiratory Distress Gastrointestinal/Abdominal: Positive for: Normal Exam, Bowel Sounds, Soft. Negative for: Tenderness Back: Positive for: Normal Inspection Extremity: Positive for: Normal ROM Neurologic/Psych: Positive for: Alert, Oriented. Negative for: Aphasia, Facial Droop - ECG ECG: Positive for: Interpreted By Me ECG Rhythm: Positive for: Sinus Rhythm. Negative for: ST/T Changes Rate: 79 O2 Sat by Pulse Oximetry: 96 - Progress ED Course And Treament: Labs ordered. CXR ordered. DuoNeb x 2, solu-medrol 125mg IV ordered. CTA chest, CXR ordered. Disposition - Clinical Impression Clinical Impression: Bronchospasm, Dyspnea - Patient ED Disposition Is Patient to be Admitted: Transfer of Care (Signed out to Andie NAVA pending lab results and disposition) - Disposition Disposition Time: 20:00 Condition: STABLE Forms: [email or web address] (Tongan)
[2017-06-27] MEDS ORDERED: Albuterol-Ipratrop 3 mg / 0.5 (3 ml) UD ONE (19:35)
[2017-06-27 20:05] LABS: BASO # 0.1 K/uL (0.0-0.2); BASO % 0.7 % (0.0-2.0); EOS # 0.3 K/uL (0.0-0.7); EOS % 3.5 % (0.0-4.0); HEMOGLOBIN 13.1 g/dL (12.0-16.0); LYMPH # 1.2 K/uL (1.0-4.3); LYMPH % 14.3 % (20.0-40.0); MEAN CELL VOLUME 83.2 fl (81.0-99.0); MEAN CORPUSCULAR HEMOGLOBIN 26.8 pg (27.0-31.0); MEAN CORPUSCULAR HGB CONC 32.2 g/dL (33.0-37.0); MEAN PLATELET VOLUME 7.6 fl (7.2-11.7); MONO # 0.6 K/uL (0.0-0.8); MONO % 7.3 % (0.0-10.0); NEUT % 74.2 % (50.0-75.0); RBC 4.9 Mil/uL (3.80-5.20); RED CELL DISTRIBUTION WIDTH 14.8 % (11.5-14.5); WHITE BLOOD COUNT 8.2 K/uL (4.8-10.8)
[2017-06-27 20:09] LABS: ALB/GLOB RATIO 1.1 (1.0-2.1); ALBUMIN 3.8 g/dL (3.5-5.0); ALT/SGPT 43 U/L (9-52); AST/SGOT 24 U/L (14-36); BLOOD UREA NITROGEN 15 mg/dl (7-17); CALCIUM 8.4 mg/dL (8.4-10.2); GFR AFRICAN-AMERICAN > 60; GFR NON-AFRICAN AMERICAN > 60; LIPASE 53 U/L (23-300)
[2017-06-27 20:25] LABS: B-TYPE NATRIURETIC PEPTIDE 238 pg/ml (0-900)
[2017-06-27 20:40] LABS: VENOUS BLOOD GAS BASE EXCESS 8.3 mmol/L (0.0-2.0); VENOUS BLOOD GAS PCO2 50 mmHg (40-60); VENOUS BLOOD GAS PO2 29 mm/Hg (30-55); VENOUS BLOOD PH 7.44 (7.32-7.43)
[2017-06-27] MEDS ORDERED: Iodixanol 320 MG/ML 100 ML BOTTLE IV ONE (20:49)
[2017-06-27] MEDS ORDERED: Sodium Chloride 0.9% 50 ML IV ONE (20:50)
--- NOTE | 2017-06-27 21:31 | CT ---
EXAM: CT Angiography Chest With Intravenous Contrast CLINICAL HISTORY: 72 years old, female; Signs and symptoms; Shortness of breath; Prior surgery; Surgery date: 6+ months; Surgery type: Coronary stent; Additional info: Hemoptysis, SOB TECHNIQUE: Axial computed tomographic angiography images of the chest with intravenous contrast using pulmonary embolism protocol. All CT scans at this facility use one or more dose reduction techniques, viz.: automated exposure control; ma/kV adjustment per patient size (including targeted exams where dose is matched to indication; i.e. head); or iterative reconstruction technique. MIP reconstructed images were created and reviewed. Coronal and sagittal reformatted images were created and reviewed. CONTRAST: 90 mL of Visipaque administered intravenously. COMPARISON: No relevant prior studies available. FINDINGS: Limitations: Motion artifact - mild. Pulmonary arteries: No definite pulmonary embolism. Aorta: Mild atherosclerotic disease. No aneurysm. Lungs: Minimal atelectasis/scarring. No consolidation. Few pulmonary nodules, up to 0.3 cm. RIGHT middle lobe calcified granuloma. Pleural space: No significant effusion. No pneumothorax. Heart: No cardiomegaly. No significant pericardial effusion. Mediastinum: Small hiatal hernia. Bones/joints: Degenerative changes of spine. No acute fracture. Soft tissues: Unremarkable. Lymph nodes: No pathologically enlarged lymph nodes. Adrenals: Mild hypertrophy of adrenal glands. Kidneys and ureters: Probable RIGHT renal cyst. IMPRESSION: 1. No definite CT evidence of pulmonary embolism. 2. Pulmonary nodules. For low-risk patients, no follow-up is necessary. For high-risk patients (smoking history or other known risk factors) an optional CT at 12 months could be performed. 3. Incidental/non-acute findings are described above.
--- NOTE | 2017-06-27 21:36 | ED PDOC ---
- Laboratory Results Result Diagrams: 06/27/17 19:51 06/27/17 19:51 - ECG O2 Sat by Pulse Oximetry: 96 - Progress ED Course And Treament: Case endorsed to blurb writer from Kevin NAVA pending labs, CTA EXAM: CT Angiography Chest With Intravenous Contrast CLINICAL HISTORY: 72 years old, female; Signs and symptoms; Shortness of breath; Prior surgery; Surgery date: 6+ months; Surgery type: Coronary stent; Additional info: Hemoptysis, SOB TECHNIQUE: Axial computed tomographic angiography images of the chest with intravenous contrast using pulmonary embolism protocol. All CT scans at this facility use one or more dose reduction techniques, viz.: automated exposure control; ma/kV adjustment per patient size (including targeted exams where dose is matched to indication; i.e. head); or iterative reconstruction technique. MIP reconstructed images were created and reviewed. Coronal and sagittal reformatted images were created and reviewed. CONTRAST: 90 mL of Visipaque administered intravenously. COMPARISON: No relevant prior studies available. FINDINGS: Limitations: Motion artifact - mild. Pulmonary arteries: No definite pulmonary embolism. Aorta: Mild atherosclerotic disease. No aneurysm. Lungs: Minimal atelectasis/scarring. No consolidation. Few pulmonary nodules, up to 0.3 cm. RIGHT middle lobe calcified granuloma. Pleural space: No significant effusion. No pneumothorax. Heart: No cardiomegaly. No significant pericardial effusion. Mediastinum: Small hiatal hernia. Bones/joints: Degenerative changes of spine. No acute fracture. Soft tissues: Unremarkable. Lymph nodes: No pathologically enlarged lymph nodes. Adrenals: Mild hypertrophy of adrenal glands. Kidneys and ureters: Probable RIGHT renal cyst. IMPRESSION: 1. No definite CT evidence of pulmonary embolism. 2. Pulmonary nodules. For low-risk patients, no follow-up is necessary. For high -risk patients (smoking history or other known risk factors) an optional CT at 12 months could be performed. 3. Incidental/non-acute findings are described above. On re-eval, patient states she is feeling slightly better. Vitals improved. Lungs CTA b/l Case discussed with Dr. Camilo, who recommends switching antibiotic and discharging with instructions to follow up outpatient. Patient/family educated on findings, discharged with rx Levaquin, Prednisone, Tessalone, Polytrim. Advised to discontinue Augmentin. Continue previous medications. Follow up with Dr. Leslee in 2-3 days. Return precautions given. Disposition - Clinical Impression Clinical Impression: Bronchitis, Conjunctivitis - POA Present On Arrival: None - Disposition Disposition: Routine/Home Disposition Time: 22:40 Condition: IMPROVED Additional Instructions: Discontinue Augmentin, Take Levaquin instead. Continue all other previous medications Return to ED for worsening/concerning symptoms. Prescriptions: Benzonatate [Tessalon Perle] 100 mg PO TID PRN #15 capsule PRN Reason: Cough Levofloxacin [Levaquin] 500 mg PO DAILY #7 tablet Polymyxin/Trimethoprim Sulfate [Polytrim Ophth Soln] 1 drop OD Q6 7 Days bottle Prednisone [Deltasone] 40 mg PO DAILY #8 tablet Instructions: Acute Bronchitis (ED), Conjunctivitis (ED) Forms: [facility] (Bolivian) Print Language: BULGARIAN
[2017-06-27 21:42] LABS: SQUAMOUS EPITHIAL 8 /hpf (0-5); URINE BILIRUBIN NEGATIVE (NEGATIVE); URINE BLOOD SMALL (NEGATIVE); URINE CLARITY SLIGHTY-CLOUDY (Clear); URINE COLOR YELLOW (YELLOW); URINE GLUCOSE (UA) NEG (Normal); URINE LEUKOCYTE ESTERASE TRACE Leu/uL (Negative); URINE NITRATE NEGATIVE (NEGATIVE); URINE PROTEIN 30 mg/dL (NEGATIVE)
[2017-06-27 22:22] VITALS: BP 102/59; PULSE 72; RESP 19; TEMP 99
--- NOTE | 2017-06-28 09:27 | RAD ---
HISTORY: cough COMPARISON: Chest x-ray performed 12/01/16 TECHNIQUE: Chest PA and lateral FINDINGS: Examination limited by habitus. LUNGS: Mild basilar atelectasis. Please note that chest x-ray has limited sensitivity for the detection of pulmonary masses. PLEURA: No significant pleural effusion identified. No definite pneumothorax . CARDIOVASCULAR: Borderline cardiomegaly, may be exaggerated by technique OSSEOUS STRUCTURES: Degenerative changes. VISUALIZED UPPER ABDOMEN: Unremarkable. OTHER FINDINGS: None. IMPRESSION: Mild basilar atelectasis. Borderline cardiomegaly may be exaggerated by technique. Please refer to report from CTA of the chest performed the same day.
--- NOTE | 2017-06-28 11:07 | CARD ---
APPROVED REPORT EKG Measurement Heart [id number] <Conclusion> Normal sinus rhythm Septal infarct, age undetermined ST & T wave abnormality, consider lateral ischemia Abnormal ECG
== END 2017-06-27 23:15 | disposition home or self-care (01) ==
LOC: H.ER 18:17
DX: J98.01 Acute bronchospasm (principal); R06.00 Dyspnea, unspecified; H10.9 Unspecified conjunctivitis; Z95.5 Presence of coronary angioplasty implant and graft; I10 Essential (primary) hypertension; Z86.59 Personal history of other mental and behavioral disorders; I25.10 Atherosclerotic heart disease of native coronary artery without angina pectoris; Z79.82 Long term (current) use of aspirin; E78.00 Pure hypercholesterolemia, unspecified

== ENCOUNTER 2017-06-29 11:03 | Inpatient (IN) | payer MEDICARE, BC ==
[2017-06-29 11:14] VITALS: BMI 29.2
[2017-06-29] MEDS ORDERED: Albuterol-Ipratrop 3 mg / 0.5 (3 ml) UD INH STA (11:47)
[2017-06-29] MEDS ORDERED: Albuterol-Ipratrop 3 mg / 0.5 (3 ml) UD IH STA (11:47)
--- NOTE | 2017-06-29 11:51 | ED PDOC ---
HPI: General Adult Time Seen by Provider: 06/29/17 11:23 Chief Complaint (Nursing): Flu-like Symptoms Chief Complaint (Provider): Cough History Per: Patient History/Exam Limitations: no limitations Onset/Duration Of Symptoms: Days (1 week) Additional Complaint(s): Pt. with cough, congestion, dyspnea, weakness all over. Body aches. No nausea , vomit, diarrhea, headaches, dizziness. Seen by pcp and put on meds. Came to the ED 06/27/16 and dc with new meds and antibiotics. Here as she still has symptoms and not feeling well. No chest pain, leg pain. Past Medical History Vital Signs: Last Vital Signs Temp 976 F H 06/29/17 14:00 Pulse 54 L 06/29/17 14:00 Resp 20 06/29/17 14:00 BP 121/51 L 06/29/17 14:00 Pulse Ox 97 06/29/17 14:07 - Medical History PMH: Arthritis, CAD, COPD, Depression, HTN, Hypercholesterolemia, Pneumonia Denies: Diabetes, Chronic Kidney Disease - Surgical History Surgical History: Coronary Stent Denies: CABG - Family History Family History: States: Unknown Family Hx - Living Arrangements Living Arrangements: With Family - Social History Current smoker - smoking cessation education provided: No Alcohol: None Drugs: Denies - Home Medications Home Medications: Ambulatory Orders Medication Instructions Recorded Benzonatate [Tessalon Perle] 100 mg PO TID 06/29/17 Calcium Carbonate [Calcium] 500 mg PO DAILY 06/29/17 Escitalopram [Lexapro] 20 mg PO DAILY 06/29/17 Oseltamivir [Tamiflu Cap] 75 mg PO BID 06/29/17 Polymyxin B Sulf/Trimethoprim 10 ml RIGHTEYE Q6 06/29/17 [Polymyxin B-Tmp Eye Drops] Prednisone [Deltasone] 40 mg PO DAILY 06/29/17 Simvastatin [Zocor] 40 mg PO DAILY 06/29/17 Valsartan/Hydrochlorothiazide 1 tab PO DAILY 06/29/17 [Valsartan-Hctz 320-25 mg Tab] amLODIPine [Norvasc] 5 mg PO DAILY 06/29/17 levoFLOXacin [Levaquin] 500 mg PO DAILY 06/29/17 - Allergies Allergies/Adverse Reactions: Allergies Allergy/AdvReac Type Severity Reaction Status Date / Time No Known Allergies Allergy Verified 01/04/18 18:19 Review of Systems ROS Statement: Except As Marked, All Systems Reviewed And Found Negative Constitutional: Positive for: Chills, Weakness Respiratory: Positive for: Cough, Shortness of Breath, Sputum, Wheezing Neurological: Positive for: Weakness, Other (body aches) Physical Exam - Reviewed Nursing Documentation Reviewed: Yes Vital Signs Reviewed: Yes - Physical Exam Appears: Positive for: Non-toxic, No Acute Distress Head Exam: Positive for: ATRAUMATIC, NORMAL INSPECTION, NORMOCEPHALIC Skin: Positive for: Normal Color, Warm, DRY Eye Exam: Positive for: EOMI, Normal appearance, PERRL ENT: Positive for: Normal ENT Inspection Neck: Positive for: Normal, Painless ROM Cardiovascular/Chest: Positive for: Regular Rate, Rhythm Respiratory: Positive for: Decreased Breath Sounds, Wheezing (mild expiration) Gastrointestinal/Abdominal: Positive for: Normal Exam, Bowel Sounds, Soft. Negative for: Tenderness Back: Positive for: Normal Inspection. Negative for: L CVA Tenderness, R CVA Tenderness Extremity: Positive for: Normal ROM. Negative for: Tenderness, Pedal Edema Neurologic/Psych: Positive for: Alert, Oriented - Laboratory Results Result Diagrams: 06/29/17 12:55 06/29/17 12:55 Interpretation Of Abn Labs: 14.6 wbc, 2.5 lactate - ECG ECG: Positive for: Interpreted By Me, Viewed By Me Interpretation Of Abn EKG: LBBB same as old O2 Sat by Pulse Oximetry: 97 Pulse Ox Interpretation: Normal - Radiology X-Ray: Read By Radiologist X-Ray Interpretation: No Acute Disease - Progress ED Course And Treament: 1400: Stable. Had CT 06/27 with no acute findings. 1412: Stable. Spoke with Dr. Camilo. Will admit. AAOx3. Wants ID consult. Will put other orders. Disposition - Clinical Impression Clinical Impression: Pneumonia, Severe sepsis - Patient ED Disposition Is Patient to be Admitted: Yes Counseled Patient/Family Regarding: Studies Performed, Diagnosis - Disposition Disposition Time: 14:15 Condition: FAIR - Pt Status Changed To: Hospital Disposition Of: Inpatient - Admit Certification Admit to Inpatient:: After my assessment, the patient will require hospitalization for at least two midnights. This is because of the severity of symptoms shown, intensity of services needed, and/or the medical risk in this patient being treated as an outpatient. - POA Present On Arrival: None Core Measure Indicators: Pneumonia
[2017-06-29] MEDS ORDERED: Albuterol-Ipratrop 3 mg / 0.5 (3 ml) UD ONE (12:13)
--- NOTE | 2017-06-29 12:45 | RAD ---
HISTORY: Sepsis Patient COMPARISON: 06/27/2017 FINDINGS: LUNGS: No focal infiltrate. Mild interstitial changes, grossly unchanged from prior study. PLEURA: No significant pleural effusion identified, no pneumothorax apparent. CARDIOVASCULAR: Unchanged. OSSEOUS STRUCTURES: No significant abnormalities. VISUALIZED UPPER ABDOMEN: Normal. OTHER FINDINGS: None. IMPRESSION: No new focal infiltrate.
[2017-06-29 12:50] LABS: VENOUS BLOOD GAS PCO2 51 mmHg (40-60); VENOUS BLOOD GAS PO2 34 mm/Hg (30-55); VENOUS BLOOD PH 7.43 (7.32-7.43)
[2017-06-29 13:05] LABS: BASO # 0.1 K/uL (0.0-0.2); BASO % 0.4 % (0.0-2.0); EOS # 0.1 K/uL (0.0-0.7); HEMOGLOBIN 12.5 g/dL (12.0-16.0); LYMPH # 5.7 K/uL (1.0-4.3); LYMPH % 39.1 % (20.0-40.0); MEAN CELL VOLUME 82.6 fl (81.0-99.0); MEAN CORPUSCULAR HEMOGLOBIN 27.1 pg (27.0-31.0); MEAN CORPUSCULAR HGB CONC 32.8 g/dL (33.0-37.0); MEAN PLATELET VOLUME 7.4 fl (7.2-11.7); MONO % 7.2 % (0.0-10.0); NEUT # 7.6 K/uL (1.8-7.0); NEUT % 52.3 % (50.0-75.0); NRBC % 0.1 % (0.0-0.0); RBC 4.62 Mil/uL (3.80-5.20); RED CELL DISTRIBUTION WIDTH 14.9 % (11.5-14.5); WHITE BLOOD COUNT 14.6 K/uL (4.8-10.8)
[2017-06-29] MEDS: Sodium Chloride 0.9% 1,000 ML IV SCH ×2 (13:05→20:46)
[2017-06-29 13:33] LABS: INR 1.1 (0.9-1.2); PARTIAL THROMBOPLASTIN TIME 28.7 Seconds (25.6-37.1)
[2017-06-29 13:37] LABS: ALB/GLOB RATIO 1.1 (1.0-2.1); ALBUMIN 3.9 g/dL (3.5-5.0); ALT/SGPT 44 U/L (9-52); AST/SGOT 27 U/L (14-36); BLOOD UREA NITROGEN 16 mg/dl (7-17); GFR AFRICAN-AMERICAN > 60; GFR NON-AFRICAN AMERICAN > 60; MAGNESIUM 2.4 MG/DL (1.6-2.3)
[2017-06-29 13:48] LABS: B-TYPE NATRIURETIC PEPTIDE 294 pg/ml (0-900)
[2017-06-29] MEDS ORDERED: levoFLOXacin 750 mg in D5W 150 ML BAG IVPB STA (14:09)
[2017-06-29] MEDS ORDERED: levoFLOXacin 750 mg in D5W 750 MG/150 ML BAG IVPB ONE (16:17)
[2017-06-29 17:37] LABS: VENOUS BLOOD GAS BASE EXCESS 5.3 mmol/L (0.0-2.0); VENOUS BLOOD GAS PCO2 49 mmHg (40-60); VENOUS BLOOD GAS PO2 54 mm/Hg (30-55); VENOUS BLOOD PH 7.41 (7.32-7.43)
--- NOTE | 2017-06-29 18:13 | CARD ---
APPROVED REPORT EKG Measurement Heart [id number] <Conclusion> Sinus bradycardia Left bundle branch block Abnormal ECG
[2017-06-29] MEDS ORDERED: Pneumococcal 23-Valent Vaccine IM ONE (18:55)
[2017-06-29] MEDS ORDERED: Influenza Vaccine 18yr & older 0.5 ML/45 MCG SYR IM ONE (19:24)
--- NOTE | 2017-06-29 20:33 | CP.PCM.HP ---
History of Present Illness - History of Present Illness History of Present Illness: Pt. with significant hx of CAD s/p stent presented in ER with general malaise and weakness cough, congestion, dyspnea, weakness all over. She was seen in her PMD office few days before this admission she was started on oral antibx. She was seen in ER on 06/27/16 and dc with new meds and antibiotics. She still has symptoms and not feeling well with severe dyspnea. The CXR reveled same intersticial marking, she has leukocytossis and lactic acidosis. The patient appears in same distresses and evidently she failed the present antibx therapy. She is dehydrated. She has bradycardia. The present diagnosis is interstitial pneumonia with exacerbation of COPD and bradycardia. Patient started on iv antibx, iv steroid and hydration. Present on Admission - Present on Admission Any Indicators Present on Admission: No Review of Systems - Constitutional Constitutional: Fever, Malaise, Weakness - EENT Eyes: As Per HPI - Cardiovascular Cardiovascular: Dyspnea, Slow Heart Rate - Respiratory Respiratory: Cough, Dyspnea, Dyspnea on Exertion, Wheezing, Excessive Mucous Production, Pain with Coughing - Gastrointestinal Gastrointestinal: As Per HPI - Musculoskeletal Musculoskeletal: Arthralgias, Muscle Weakness - Integumentary Integumentary: As Per HPI - Neurological Neurological: As Per HPI - Psychiatric Psychiatric: As Per HPI Past Patient History - Infectious Disease Hx of Infectious Diseases: None - Past Medical History & Family History Past Medical History?: Yes - Past Social History Smoking Status: Former Smoker - CARDIAC Hx Cardiac Disorders: Yes Hx Hypercholesterolemia: Yes Hx Hypertension: Yes - PULMONARY Hx Respiratory Disorders: Yes Hx Chronic Obstructive Pulmonary Disease (COPD): Yes Hx Pneumonia: Yes - NEUROLOGICAL Hx Neurological Disorder: No - HEENT Hx HEENT Problems: No - RENAL Hx Chronic Kidney Disease: No - ENDOCRINE/METABOLIC Hx Endocrine Disorders: No - HEMATOLOGICAL/ONCOLOGICAL Hx Blood Disorders: No Hx Blood Transfusions: No - INTEGUMENTARY Hx Dermatological Problems: No - MUSCULOSKELETAL/RHEUMATOLOGICAL Hx Musculoskeletal Disorders: Yes Hx Arthritis: Yes Hx Falls: No - GASTROINTESTINAL Hx Gastrointestinal Disorders: No - GENITOURINARY/GYNECOLOGICAL Hx Genitourinary Disorders: No - PSYCHIATRIC Hx Psychophysiologic Disorder: Yes Hx Depression: Yes Hx Substance Use: No - SURGICAL HISTORY Hx Surgeries: Yes Hx Coronary Artery Bypass Graft: No Hx Coronary Stent: Yes - ANESTHESIA Hx Anesthesia: Yes Hx Anesthesia Reactions: No Hx Malignant Hyperthermia: No Meds Allergies/Adverse Reactions: Allergies Allergy/AdvReac Type Severity Reaction Status Date / Time No Known Allergies Allergy Verified 06/27/17 18:19 Physical Exam - Constitutional Appears: Chronically Ill - Head Exam Head Exam: ATRAUMATIC, NORMAL INSPECTION, NORMOCEPHALIC - Eye Exam Additional comments: Rt eye sub conjunctiva hecchymosis - ENT Exam ENT Exam: Mucous Membranes Dry - Neck Exam Neck exam: Positive for: Normal Inspection - Respiratory Exam Respiratory Exam: Chest Wall Tenderness, Decreased Breath Sounds, Prolonged Expiratory Phase - Cardiovascular Exam Cardiovascular Exam: Bradycardia, REGULAR RHYTHM, +S1, +S2 - GI/Abdominal Exam GI & Abdominal Exam: Normal Bowel Sounds, Soft - Rectal Exam Rectal Exam: Deferred - Neurological Exam Neurological exam: Alert, CN II-XII Intact, Oriented x3 - Psychiatric Exam Psychiatric exam: Anxious - Skin Skin Exam: Pallor Results - Vital Signs Recent Vital Signs: Last Vital Signs Temp 97.8 F 06/29/17 19:45 Pulse 62 06/29/17 19:45 Resp 16 06/29/17 19:45 BP 119/65 06/29/17 19:45 Pulse Ox 96 06/29/17 19:45 - Labs Result Diagrams: 06/29/17 12:55 06/29/17 12:55 Labs: Laboratory Results - last 24 hr 06/29/17 06/29/17 06/29/17 12:40 12:55 12:55 WBC 14.6 H D RBC 4.62 Hgb 12.5 Hct 38.2 MCV 82.6 MCH 27.1 MCHC 32.8 L RDW 14.9 H Plt Count 324 MPV 7.4 Neut % (Auto) 52.3 Lymph % (Auto) 39.1 [place] % (Auto) 7.2 Eos % (Auto) 1.0 Baso % (Auto) 0.4 Neut # 7.6 H Lymph # 5.7 H [place] # 1.0 H Eos # 0.1 Baso # 0.1 PT INR APTT pO2 34 VBG pH 7.43 VBG pCO2 51 VBG HCO3 30.4 VBG Total CO2 35.5 H VBG O2 Sat (Calc) 74.2 H VBG Base Excess 8.0 H VBG Potassium 4.1 Sodium 135.0 141 Chloride 104.0 98 Glucose 120 H Lactate 2.5 H FiO2 21.0 Potassium 3.8 Carbon Dioxide 31 H Anion Gap 16 BUN 16 Creatinine 0.6 L Est GFR ( Amer) > 60 Est GFR (Non-Af Amer) > 60 Random Glucose 114 H Calcium 9.0 Phosphorus 2.6 Magnesium 2.4 H Total Bilirubin 0.2 AST 27 ALT 44 Alkaline Phosphatase 64 Troponin I < 0.0120 NT-Pro-B Natriuret Pep 294 Total Protein 7.2 Albumin 3.9 Globulin 3.4 Albumin/Globulin Ratio 1.1 Venous Blood Potassium 4.1 Influenza Typ A,B (EIA) 06/29/17 06/29/17 06/29/17 12:55 12:55 17:33 WBC RBC Hgb Hct MCV MCH MCHC RDW Plt Count MPV Neut % (Auto) Lymph % (Auto) [place] % (Auto) Eos % (Auto) Baso % (Auto) Neut # Lymph # [place] # Eos # Baso # PT 12.0 INR 1.1 APTT 28.7 pO2 54 VBG pH 7.41 VBG pCO2 49 VBG HCO3 28.8 VBG Total CO2 32.6 H VBG O2 Sat (Calc) 92.2 H VBG Base Excess 5.3 H VBG Potassium 3.4 L Sodium 138.0 Chloride 105.0 Glucose 186 H Lactate 1.4 FiO2 21.0 Potassium Carbon Dioxide Anion Gap BUN Creatinine Est GFR ( Amer) Est GFR (Non-Af Amer) Random Glucose Calcium Phosphorus Magnesium Total Bilirubin AST ALT Alkaline Phosphatase Troponin I NT-Pro-B Natriuret Pep Total Protein Albumin Globulin Albumin/Globulin Ratio Venous Blood Potassium 3.4 L Influenza Typ A,B (EIA) Negative for flu a/b Assessment & Plan (1) Interstitial pneumonia Status: Acute (2) Conjunctivitis Status: Acute (3) Cough Status: Acute Priority: High (4) COPD (chronic obstructive pulmonary disease) Status: Acute (5) No response to treatment Status: Acute (6) Bradycardia Status: Acute (7) CAD (coronary artery disease) Status: Chronic (8) No response to treatment Status: Acute (9) Subconjunctival bleed Status: Acute (10) Subconjunctival bleed Status: Acute - Assessment and Plan (Free Text) Plan: per orders.
[2017-06-29] MEDS ORDERED: methylPREDNISolone 60 MG in Sodium Chloride 0.9% 50 ML IVPB SCH (21:00)
[2017-06-29] MEDS ORDERED: MethylPREDNISolone 40 mg Vial IVP SCH (21:15)
[2017-06-30] MEDS: Sodium Chloride 0.9% 1,000 ML IV SCH ×3 (03:55→12:57)
[2017-06-30] MEDS: levoFLOXacin 500 mg in D5W 500 MG/100 ML BAG IVPB SCH (10:18)
[2017-06-30] MEDS: Patient's Own Med (Valsartan/Hydrochlorothiazide [Valsartan-Hctz 320-25 Mg Tab] 1 TAB) PO SCH (10:20)
[2017-06-30] MEDS: Enoxaparin 40 mg Syringe SC SCH (10:21)
[2017-06-30 13:17] LABS: BASO % 0.1 % (0.0-2.0); HEMOGLOBIN 12.4 g/dL (12.0-16.0); LYMPH # 1.7 K/uL (1.0-4.3); LYMPH % 14.6 % (20.0-40.0); MEAN CELL VOLUME 82.9 fl (81.0-99.0); MEAN CORPUSCULAR HEMOGLOBIN 27.3 pg (27.0-31.0); MEAN CORPUSCULAR HGB CONC 32.9 g/dL (33.0-37.0); MEAN PLATELET VOLUME 7.2 fl (7.2-11.7); MONO # 0.3 K/uL (0.0-0.8); MONO % 2.9 % (0.0-10.0); NEUT # 9.6 K/uL (1.8-7.0); NEUT % 82.4 % (50.0-75.0); RBC 4.55 Mil/uL (3.80-5.20); RED CELL DISTRIBUTION WIDTH 14.8 % (11.5-14.5); WHITE BLOOD COUNT 11.6 K/uL (4.8-10.8)
[2017-06-30 13:21] LABS: BLOOD UREA NITROGEN 16 mg/dl (7-17); CALCIUM 8.3 mg/dL (8.4-10.2); GFR AFRICAN-AMERICAN > 60; GFR NON-AFRICAN AMERICAN > 60
--- NOTE | 2017-06-30 14:43 | CP.PCM.CON ---
History of Present Illness - History of Present Illness History of Present Illness: 72 yo female admitted with pneumonia presented in ER with general malaise and weakness cough, congestion, dyspnea, weakness all over. She was seen in her PMD office few days before this admission and was started on oral antibx. . The CXR reveled same intersticial marking, she has leukocytossis and lactic acidosis. Review of Systems - Review of Systems All systems: reviewed and no additional remarkable complaints except - Constitutional Constitutional: As Per HPI, Chills, Fever, Malaise - EENT Eyes: absent: As Per HPI, Blind Spots, Blurred Vision, Change in Vision, Decreased Night Vision, Diplopia, Discharge, Dry Eye, Exophthalmos, Floaters, Irritation, Itchy Eyes, Loss of Peripheral Vision, Pain, Photophobia, Requires Corrective Lenses, Sees Flashes, Spots in Vision, Tunnel Vision, Other Visual Disturbances, Loss of Vision, Other Ears: absent: As Per HPI, Decreased Hearing, Ear Discharge, Ear Pain, Tinnitus, Abnormal Hearing, Disequilibrium, Dizziness, Other Nose/Mouth/Throat: absent: As Per HPI, Epistaxis, Nasal Congestion, Nasal Discharge, Nasal Obstruction, Nasal Trauma, Nose Pain, Post Nasal Drip, Sinus Pain, Sinus Pressure, Bleeding Gums, Change in Voice, Dental Pain, Dry Mouth, Dysphagia, Halitosis, Hoarsness, Lip Swelling, Mouth Lesions, Mouth Pain, Odynophagia, Sore Throat, Throat Swelling, Tongue Swelling, Facial Pain, Neck Pain, Neck Mass, Other - Breasts Breasts: absent: As Per HPI, Change in Shape, Mass, Pain, Nipple Discharge, Nipple Inversion, Skin Changes, Swelling, Other - Cardiovascular Cardiovascular: absent: As Per HPI, Acrocyanosis, Chest Pain, Chest Pain at Rest , Chest Pain with Activity, Claudication, Diaphoresis, Dyspnea, Dyspnea on Exertion, Edema, Irregular Heart Rhythm, Pain Radiating to Arm/Neck/Jaw, Leg Edema, Leg Ulcers, Lightheadedness, Orthopnea, Palpitations, Paroxysmal Nocturnal Dyspnea, Pedal Edema, Radiating Pain, Rapid Heart Rate, Slow Heart Rate, Syncope, Other - Respiratory Respiratory: As Per HPI, Cough, Dyspnea. absent: Hemoptysis - Gastrointestinal Gastrointestinal: absent: As Per HPI, Abdominal Pain, Belching, Bloating, Change in Bowel Habits, Change in Stool Character, Coffee Ground Emesis, Constipation, Cramping, Diarrhea, Dyspepsia, Dysphagia, Early Satiety, Excessive Flatus, Fecal Incontinence, Heartburn, Hematemesis, Hematochezia, Loose Stools, Melena, Nausea, Odynophagia, Temesmus, Vomiting, Other - Genitourinary Genitourinary: absent: As Per HPI, Change in Urinary Stream, Difficulty Urinating, Dysuria, Flank Pain, Hematuria, Pyuria, Nocturia, Urinary Incontinence, Urinary Frequency, Urinary Hesitance, Urinary Urgency, Voiding Freq/Small Amts, Freq UTI, Hx Renal/Bladder Calculi, Hx /Renal Surgery, Bladder Distension, Other - Reproductive: Female Reproductive:Female: absent: As Per HPI, Amenorrhea, Amenorrhea/ Control, Currently Menstual, Cycle <21 Days, Cycle >35 Days, Cycle Variable, Menses 1-7 Days, Menses >/= 8 Days, Menses Variable, Cycle > 4 Weeks Between, No Menses for 6 Months, Heavy Menses, Light Menses, Normal Menses, Spotting Between Cycles , S/P Hysterectomy, Menopausal, Post Menopausal, Premenarche, Abnormal Vaginal Bleeding, Dysmenorrhea, Dyspareunia, Genital Lesions, Genital Pruritis, Pelvic Pain, Prolapse Symptoms, Sexual Dysfunction, Vaginal Discharge, Vaginal Dryness , Vaginal Odor, Vaginal Pruritis, Other - Menstruation Menstruation: absent: As Per HPI, Amenorrhea, Amenorrhea/ Control, Currently Menstual, Cycle <21 Days, Cycle >35 Days, Cycle Variable, Menses 1-7 Days, Menses >/= 8 Days, Menses Variable, Cycle > 4 Weeks Between, No Menses for 6 Months, Heavy Menses, Light Menses, Normal Menses, Spotting Between Cycles , S/P Hysterectomy, Menopausal, Post Menopausal, Premenarche, Abnormal Vaginal Bleeding, Dysmenorrhea, Other - Musculoskeletal Musculoskeletal: As Per HPI - Integumentary Integumentary: absent: As Per HPI, Acne, Alopecia, Bleeding Lesions, Change in Hair, Change in Nails, Change in Pigmentation, Changing Lesions, Dry Skin, Erythema, Furuncle, Hirsutism, Lesions, New Lesions, Non-Healing Lesions, Photosensitivity, Pruritus, Rash, Skin Pain, Skin Ulcer, Sores, Striae, Swelling , Unusual Bruising, Wounds, Jaundice, Other - Psychiatric Psychiatric: absent: As Per HPI, Abnormal Sleep Pattern, Anhedonia, Anxiety, Auditory Hallucinations, Behavioral Changes, Change in Appetite, Change in Libido, Confusion, Depression, Difficulty Concentrating, Hallucinations, Homicidal Ideation, Hopelessness, Irritability, Memory Loss, Mood Swings, Panic Attacks, Paranoia, Suicidal Ideation, Visual Hallucinations, Tactile Hallucinations, Other - Endocrine Endocrine: absent: As Per HPI, Change in Body Appearance, Change in Libido, Cold Intolorance, Deepening of Voice, Excessive Sweating, Fatigue, Flushing, Heat Intolorance, Increase in Ring/Shoe/Hat Size, Palpitations, Polydipsia, Polyphagia, Polyuria, Other - Hematologic/Lymphatic Hematologic: absent: As Per HPI, Easy Bleeding, Easy Bruising, Lymphadenopathy, Other Past Patient History - Infectious Disease Hx of Infectious Diseases: None - Past Medical History & Family History Past Medical History?: Yes - Past Social History Smoking Status: Former Smoker - CARDIAC Hx Cardiac Disorders: Yes Hx Hypercholesterolemia: Yes Hx Hypertension: Yes - PULMONARY Hx Respiratory Disorders: Yes Hx Chronic Obstructive Pulmonary Disease (COPD): Yes Hx Pneumonia: Yes - NEUROLOGICAL Hx Neurological Disorder: No - HEENT Hx HEENT Problems: No - RENAL Hx Chronic Kidney Disease: No - ENDOCRINE/METABOLIC Hx Endocrine Disorders: No - HEMATOLOGICAL/ONCOLOGICAL Hx Blood Disorders: No Hx Blood Transfusions: No - INTEGUMENTARY Hx Dermatological Problems: No - MUSCULOSKELETAL/RHEUMATOLOGICAL Hx Musculoskeletal Disorders: Yes Hx Arthritis: Yes Hx Falls: No - GASTROINTESTINAL Hx Gastrointestinal Disorders: No - GENITOURINARY/GYNECOLOGICAL Hx Genitourinary Disorders: No - PSYCHIATRIC Hx Psychophysiologic Disorder: Yes Hx Depression: Yes Hx Substance Use: No - SURGICAL HISTORY Hx Surgeries: Yes Hx Coronary Artery Bypass Graft: No Hx Coronary Stent: Yes - ANESTHESIA Hx Anesthesia: Yes Hx Anesthesia Reactions: No Hx Malignant Hyperthermia: No Meds Allergies/Adverse Reactions: Allergies Allergy/AdvReac Type Severity Reaction Status Date / Time No Known Allergies Allergy Verified 06/27/17 18:19 - Medications Medications: Current Medications Amlodipine Besylate (Norvasc) 5 mg PO DAILY [facility] Last Admin: 06/30/17 10:21 Dose: 5 mg Atorvastatin Calcium (Lipitor) 20 mg PO DAILY [facility] Last Admin: 06/30/17 10:22 Dose: 20 mg Benzonatate (Tessalon Perles) 100 mg PO TID [facility] Last Admin: 06/30/17 12:59 Dose: 100 mg Calcium Carbonate (Oscal) 500 mg PO DAILY [facility] Last Admin: 06/30/17 10:21 Dose: 500 mg Enoxaparin Sodium (Lovenox) 40 mg SC DAILY [facility] PRN Reason: Protocol Last Admin: 06/30/17 10:21 Dose: 40 mg Escitalopram Oxalate (Lexapro) 20 mg PO DAILY [facility] Last Admin: 06/30/17 10:21 Dose: 20 mg Home Med (Valsartan/Hydrochlorothiazide [Valsartan-Hctz 320-25 Mg Tab]) 1 tab PO DAILY [facility] Last Admin: 06/30/17 10:20 Dose: 1 tab Sodium Chloride (Sodium Chloride 0.9%) 1,000 mls @ 150 mls/hr IV .Q6H40M [facility] Last Admin: 06/30/17 12:57 Dose: Not Given Levofloxacin/Dextrose (Levaquin 500mg) 500 mg in 100 mls @ 100 mls/hr IVPB DAILY [facility] PRN Reason: Protocol Last Admin: 06/30/17 10:18 Dose: 100 mls/hr Methylprednisolone (Solu-Medrol) 60 mg IVP Q8H [facility] Last Admin: 06/30/17 13:00 Dose: 60 mg Oseltamivir Phosphate (Tamiflu Cap) 75 mg PO BID [facility] PRN Reason: Protocol Stop: 07/02/17 17:01 Last Admin: 06/30/17 10:21 Dose: Not Given Physical Exam - Constitutional Appears: Non-toxic, Chronically Ill - Head Exam Head Exam: NORMOCEPHALIC - Eye Exam Eye Exam: PERRL. absent: Scleral icterus - ENT Exam ENT Exam: Mucous Membranes Dry - Neck Exam Neck exam: Negative for: Lymphadenopathy - Respiratory Exam Respiratory Exam: Decreased Breath Sounds, Clear to Auscultation Bilateral, Prolonged Expiratory Phase - Cardiovascular Exam Cardiovascular Exam: REGULAR RHYTHM, +S1, +S2 - GI/Abdominal Exam GI & Abdominal Exam: Diminished Bowel Sounds, Soft. absent: Tenderness - Rectal Exam Rectal Exam: Deferred - Exam Exam: NORMAL INSPECTION - Extremities Exam Extremities exam: Positive for: pedal pulses present. Negative for: calf tenderness, pedal edema, tenderness - Back Exam Back exam: absent: CVA tenderness (L), CVA tenderness (R) - Neurological Exam Neurological exam: Alert, CN II-XII Intact, Oriented x3, Reflexes Normal - Psychiatric Exam Psychiatric exam: Normal Mood - Skin Skin Exam: Dry, Intact Results - Vital Signs Recent Vital Signs: Last Vital Signs Temp 97.7 F 06/30/17 12:25 Pulse 61 06/30/17 12:25 Resp 18 06/30/17 12:25 BP 145/55 L 06/30/17 12:25 Pulse Ox 98 06/30/17 12:25 - Labs Result Diagrams: 06/30/17 13:00 06/30/17 13:00 Labs: Laboratory Results - last 24 hr 06/29/17 06/29/17 06/29/17 12:55 17:33 21:39 WBC RBC Hgb Hct MCV MCH MCHC RDW Plt Count MPV Neut % (Auto) Lymph % (Auto) [place] % (Auto) Eos % (Auto) Baso % (Auto) Neut # Lymph # [place] # Eos # Baso # D-Dimer, Quantitative 181 pO2 54 VBG pH 7.41 VBG pCO2 49 VBG HCO3 28.8 VBG Total CO2 32.6 H VBG O2 Sat (Calc) 92.2 H VBG Base Excess 5.3 H VBG Potassium 3.4 L Sodium 138.0 Chloride 105.0 Glucose 186 H Lactate 1.4 FiO2 21.0 Potassium Carbon Dioxide Anion Gap BUN Creatinine Est GFR ( Amer) Est GFR (Non-Af Amer) Random Glucose Calcium Troponin I TSH 3rd Generation Venous Blood Potassium 3.4 L Influenza Typ A,B (EIA) Negative for flu a/b 06/29/17 06/29/17 06/30/17 21:39 21:39 13:00 WBC 11.6 H RBC 4.55 Hgb 12.4 Hct 37.7 MCV 82.9 MCH 27.3 MCHC 32.9 L RDW 14.8 H Plt Count 308 MPV 7.2 Neut % (Auto) 82.4 H Lymph % (Auto) 14.6 L [place] % (Auto) 2.9 Eos % (Auto) 0.0 Baso % (Auto) 0.1 Neut # 9.6 H Lymph # 1.7 [place] # 0.3 Eos # 0.0 Baso # 0.0 D-Dimer, Quantitative pO2 VBG pH VBG pCO2 VBG HCO3 VBG Total CO2 VBG O2 Sat (Calc) VBG Base Excess VBG Potassium Sodium Chloride Glucose Lactate FiO2 Potassium Carbon Dioxide Anion Gap BUN Creatinine Est GFR ( Amer) Est GFR (Non-Af Amer) Random Glucose Calcium Troponin I < 0.0120 TSH 3rd Generation 0.50 Venous Blood Potassium Influenza Typ A,B (EIA) 06/30/17 13:00 WBC RBC Hgb Hct MCV MCH MCHC RDW Plt Count MPV Neut % (Auto) Lymph % (Auto) [place] % (Auto) Eos % (Auto) Baso % (Auto) Neut # Lymph # [place] # Eos # Baso # D-Dimer, Quantitative pO2 VBG pH VBG pCO2 VBG HCO3 VBG Total CO2 VBG O2 Sat (Calc) VBG Base Excess VBG Potassium Sodium 140 Chloride 99 Glucose Lactate FiO2 Potassium 4.4 Carbon Dioxide 33 H Anion Gap 12 BUN 16 Creatinine 0.5 L Est GFR ( Amer) > 60 Est GFR (Non-Af Amer) > 60 Random Glucose 175 H Calcium 8.3 L Troponin I TSH 3rd Generation Venous Blood Potassium Influenza Typ A,B (EIA) Assessment & Plan (1) Bradycardia Status: Acute (2) COPD (chronic obstructive pulmonary disease) Status: Acute (3) Interstitial pneumonia Status: Acute (4) Pneumonia Status: Acute (5) Severe sepsis Status: Acute - Assessment and Plan (Free Text) Assessment: 72 yo female [place] hx CAD is admitted with persistent fever chills and cough and CXR showing intersitial infiltrates nut neg Influenza test failed out pt rx and has elevated Lactate level on admission requires cont IV rx and may need CT chest await cultures and serologies
[2017-06-30] MEDS ORDERED: Sodium Chloride 3% for Inhalation 4 ML VIAL.NEB IH PRN (14:47)
--- NOTE | 2017-06-30 15:30 | CP.PCM.PN ---
Subjective - Date & Time of Evaluation Date of Evaluation: 06/30/17 Time of Evaluation: 15:30 - Subjective Subjective: Minimal improvement still cough with SOB and bradycardia. Objective - Vital Signs/Intake and Output Vital Signs (last 24 hours): Temp Pulse Resp BP Pulse Ox 97.7 F 61 18 145/65 98 06/30/17 13:00 06/30/17 13:00 06/30/17 13:00 06/30/17 13:00 06/30/17 13:00 - Medications Medications: Current Medications Amlodipine Besylate (Norvasc) 5 mg PO DAILY [facility] Last Admin: 06/30/17 10:21 Dose: 5 mg Atorvastatin Calcium (Lipitor) 20 mg PO DAILY [facility] Last Admin: 06/30/17 10:22 Dose: 20 mg Benzonatate (Tessalon Perles) 100 mg PO TID [facility] Last Admin: 06/30/17 12:59 Dose: 100 mg Calcium Carbonate (Oscal) 500 mg PO DAILY [facility] Last Admin: 06/30/17 10:21 Dose: 500 mg Enoxaparin Sodium (Lovenox) 40 mg SC DAILY [facility] PRN Reason: Protocol Last Admin: 06/30/17 10:21 Dose: 40 mg Escitalopram Oxalate (Lexapro) 20 mg PO DAILY [facility] Last Admin: 06/30/17 10:21 Dose: 20 mg Home Med (Valsartan/Hydrochlorothiazide [Valsartan-Hctz 320-25 Mg Tab]) 1 tab PO DAILY [facility] Last Admin: 06/30/17 10:20 Dose: 1 tab Sodium Chloride (Sodium Chloride 0.9%) 1,000 mls @ 150 mls/hr IV .Q6H40M [facility] Last Admin: 06/30/17 12:57 Dose: Not Given Levofloxacin/Dextrose (Levaquin 500mg) 500 mg in 100 mls @ 100 mls/hr IVPB DAILY [facility] PRN Reason: Protocol Last Admin: 06/30/17 10:18 Dose: 100 mls/hr Methylprednisolone (Solu-Medrol) 60 mg IVP Q8H [facility] Last Admin: 06/30/17 13:00 Dose: 60 mg Oseltamivir Phosphate (Tamiflu Cap) 75 mg PO BID [facility] PRN Reason: Protocol Stop: 07/02/17 17:01 Last Admin: 06/30/17 10:21 Dose: Not Given - Labs Labs: 06/30/17 13:00 06/30/17 13:00 PT 12.0 Seconds (9.8-13.1) 06/29/17 12:55 INR 1.1 (0.9-1.2) 06/29/17 12:55 APTT 28.7 Seconds (25.6-37.1) 06/29/17 12:55 - Constitutional Appears: Non-toxic, Chronically Ill - Head Exam Head Exam: ATRAUMATIC, NORMAL INSPECTION, NORMOCEPHALIC - Eye Exam Eye Exam: Normal appearance, PERRL Pupil Exam: NORMAL ACCOMODATION - ENT Exam ENT Exam: Mucous Membranes Moist - Neck Exam Neck Exam: Full ROM - Respiratory Exam Respiratory Exam: Chest Wall Tenderness, Decreased Breath Sounds, Prolonged Expiratory Phase - Cardiovascular Exam Cardiovascular Exam: Bradycardia, REGULAR RHYTHM, +S1, +S2 - GI/Abdominal Exam GI & Abdominal Exam: Soft, Normal Bowel Sounds - Neurological Exam Neurological Exam: Alert, Awake, CN II-XII Intact, Normal Gait, Oriented x3 - Psychiatric Exam Psychiatric exam: Anxious - Skin Skin Exam: Pallor Assessment and Plan (1) Interstitial pneumonia Status: Acute (2) Conjunctivitis Status: Acute (3) Cough Status: Acute (4) COPD (chronic obstructive pulmonary disease) Status: Acute (5) No response to treatment Status: Acute (6) Bradycardia Status: Acute (7) CAD (coronary artery disease) Status: Chronic (8) No response to treatment Status: Acute (9) Subconjunctival bleed Status: Acute (10) Subconjunctival bleed Status: Acute - Assessment and Plan (Free Text) Plan: Patient slowly responding to present rx. Will follow with ID and cardiology Repeat CXR.
--- NOTE | 2017-06-30 17:12 | RAD ---
HISTORY: pneumonia COMPARISON: Yesterday TECHNIQUE: Chest PA and lateral FINDINGS: LUNGS: There is mild interval improvement in aeration from prior study. This would include some possible improvement in the interstitial markings. No new hilar enlargement is seen. Heart and aorta are unchanged. PLEURA: No significant pleural effusion identified. No pneumothorax apparent. CARDIOVASCULAR: No CHF. Heart is unchanged in size. OSSEOUS STRUCTURES: No significant abnormalities. VISUALIZED UPPER ABDOMEN: Normal. OTHER FINDINGS: None. IMPRESSION: Mild interval improvement in aeration bilaterally. No new focal infiltrate.
[2017-06-30 17:52] LABS: SQUAMOUS EPITHIAL 1 /hpf (0-5); URINE BACTERIA RARE (<OCC); URINE BILIRUBIN NEGATIVE (NEGATIVE); URINE BLOOD SMALL (NEGATIVE); URINE CLARITY CLEAR (Clear); URINE COLOR STRAW (YELLOW); URINE GLUCOSE (UA) NEG (Normal); URINE LEUKOCYTE ESTERASE NEG Leu/uL (Negative); URINE NITRATE NEGATIVE (NEGATIVE); URINE PROTEIN NEGATIVE (NEGATIVE); URINE UROBILINOGEN 0.2-1.0 mg/dL (0.2-1.0)
[2017-07-01] MEDS: Patient's Own Med (Valsartan/Hydrochlorothiazide [Valsartan-Hctz 320-25 Mg Tab] 1 TAB) PO SCH (09:37)
[2017-07-01] MEDS: Enoxaparin 40 mg Syringe SC SCH (09:38)
[2017-07-01] MEDS: levoFLOXacin 500 mg in D5W 500 MG/100 ML BAG IVPB SCH (09:39)
--- NOTE | 2017-07-01 10:59 | CP.PCM.PN ---
Subjective - Date & Time of Evaluation Date of Evaluation: 07/01/17 Time of Evaluation: 07:00 - Subjective Subjective: afeb cultures neg thus far wbc trendibng down less cough Objective - Vital Signs/Intake and Output Vital Signs (last 24 hours): Temp Pulse Resp BP Pulse Ox 97.7 F 62 18 174/91 H 97 07/01/17 08:15 07/01/17 09:37 07/01/17 08:15 07/01/17 09:37 07/01/17 08:15 - Medications Medications: Current Medications Amlodipine Besylate (Norvasc) 5 mg PO DAILY [facility] Last Admin: 07/01/17 09:37 Dose: 5 mg Atorvastatin Calcium (Lipitor) 20 mg PO DAILY [facility] Last Admin: 07/01/17 09:38 Dose: 20 mg Benzonatate (Tessalon Perles) 100 mg PO TID [facility] Last Admin: 07/01/17 09:37 Dose: 100 mg Calcium Carbonate (Oscal) 500 mg PO DAILY [facility] Last Admin: 07/01/17 09:37 Dose: 500 mg Enoxaparin Sodium (Lovenox) 40 mg SC DAILY [facility] PRN Reason: Protocol Last Admin: 07/01/17 09:38 Dose: 40 mg Escitalopram Oxalate (Lexapro) 20 mg PO DAILY [facility] Last Admin: 07/01/17 09:37 Dose: 20 mg Home Med (Valsartan/Hydrochlorothiazide [Valsartan-Hctz 320-25 Mg Tab]) 1 tab PO DAILY [facility] Last Admin: 07/01/17 09:37 Dose: 1 tab Levofloxacin/Dextrose (Levaquin 500mg) 500 mg in 100 mls @ 100 mls/hr IVPB DAILY [facility] PRN Reason: Protocol Last Admin: 07/01/17 09:39 Dose: 100 mls/hr Methylprednisolone (Solu-Medrol) 60 mg IVP Q8H [facility] Last Admin: 07/01/17 05:05 Dose: 60 mg Oseltamivir Phosphate (Tamiflu Cap) 75 mg PO BID [facility] PRN Reason: Protocol Stop: 07/02/17 17:01 Last Admin: 07/01/17 09:38 Dose: 75 mg - Labs Labs: 06/30/17 13:00 06/30/17 13:00 PT 12.0 Seconds (9.8-13.1) 06/29/17 12:55 INR 1.1 (0.9-1.2) 06/29/17 12:55 APTT 28.7 Seconds (25.6-37.1) 06/29/17 12:55 - Constitutional Appears: Non-toxic, Cachectic, Chronically Ill - Head Exam Head Exam: NORMOCEPHALIC - Eye Exam Eye Exam: PERRL. absent: Scleral icterus - ENT Exam ENT Exam: Mucous Membranes Dry - Neck Exam Neck Exam: absent: Lymphadenopathy - Respiratory Exam Respiratory Exam: Decreased Breath Sounds - Cardiovascular Exam Cardiovascular Exam: REGULAR RHYTHM - GI/Abdominal Exam GI & Abdominal Exam: Distended - Rectal Exam Rectal Exam: Deferred - Exam Exam: NORMAL INSPECTION - Extremities Exam Extremities Exam: absent: Pedal Edema - Back Exam Back Exam: absent: CVA tenderness (L), CVA tenderness (R) Assessment and Plan (1) Bradycardia Status: Acute (2) COPD (chronic obstructive pulmonary disease) Status: Acute (3) Interstitial pneumonia Status: Acute (4) Pneumonia Status: Acute (5) Severe sepsis Status: Acute
--- NOTE | 2017-07-01 14:56 | CP.PCM.CON ---
History of Present Illness - History of Present Illness History of Present Illness: CC: Dyspnea, congestion. HPI: I have been requested on cardiology consultation by Dr. Camilo on Mrs. Schmidt who is a 72 year old female well known to me and has a history of COPD , obesity and HTN who present with several days of fever, worsening SOB, cough, congestion with whitish rogel sputum production and epistaxis. She denies chest pain, palpitations, orthopnea, edema or PND. A chest xray reveals no infiltrate and an ECG reveals NSR at 53 BPM, LBBB which is not new. Review of Systems - Constitutional Constitutional: Fatigue, Lethargy, Malaise, Weakness - EENT Eyes: absent: Blurred Vision Ears: absent: Dizziness Nose/Mouth/Throat: Epistaxis, Nasal Congestion, Nasal Discharge. absent: Dysphagia - Cardiovascular Cardiovascular: Dyspnea on Exertion, Leg Edema. absent: Chest Pain, Orthopnea, Palpitations, Syncope - Respiratory Respiratory: Cough, Dyspnea on Exertion, Chest Congestion, Excessive Mucous Production - Gastrointestinal Gastrointestinal: absent: Abdominal Pain, Diarrhea, Dysphagia, Nausea, Vomiting - Genitourinary Genitourinary: absent: Dysuria - Musculoskeletal Musculoskeletal: absent: Muscle Weakness, Myalgias - Integumentary Integumentary: absent: Rash - Neurological Neurological: absent: Abnormal Gait, Focal Weakness, Sensory Deficit, Syncope, Weakness - Psychiatric Psychiatric: absent: Anxiety, Depression - Endocrine Endocrine: absent: Palpitations - Hematologic/Lymphatic Hematologic: absent: Easy Bleeding, Easy Bruising Past Patient History - Infectious Disease Hx of Infectious Diseases: None - Past Medical History & Family History Past Medical History?: Yes - Past Social History Smoking Status: Former Smoker - CARDIAC Hx Cardiac Disorders: Yes Hx Hypercholesterolemia: Yes - PULMONARY Hx Respiratory Disorders: Yes Hx Chronic Obstructive Pulmonary Disease (COPD): Yes Hx Pneumonia: Yes - NEUROLOGICAL Hx Neurological Disorder: No - HEENT Hx HEENT Problems: No - RENAL Hx Chronic Kidney Disease: No - ENDOCRINE/METABOLIC Hx Endocrine Disorders: No - HEMATOLOGICAL/ONCOLOGICAL Hx Blood Disorders: No Hx Blood Transfusions: No - INTEGUMENTARY Hx Dermatological Problems: No - MUSCULOSKELETAL/RHEUMATOLOGICAL Hx Musculoskeletal Disorders: Yes Hx Arthritis: Yes Hx Falls: No - GASTROINTESTINAL Hx Gastrointestinal Disorders: No - GENITOURINARY/GYNECOLOGICAL Hx Genitourinary Disorders: No - PSYCHIATRIC Hx Psychophysiologic Disorder: Yes Hx Depression: Yes Hx Substance Use: No - SURGICAL HISTORY Hx Surgeries: Yes Hx Coronary Artery Bypass Graft: No Hx Coronary Stent: Yes - ANESTHESIA Hx Anesthesia: Yes Hx Anesthesia Reactions: No Hx Malignant Hyperthermia: No Meds Allergies/Adverse Reactions: Allergies Allergy/AdvReac Type Severity Reaction Status Date / Time No Known Allergies Allergy Verified 06/27/17 18:19 - Medications Medications: Current Medications Amlodipine Besylate (Norvasc) 5 mg PO DAILY [facility] Last Admin: 07/01/17 09:37 Dose: 5 mg Atorvastatin Calcium (Lipitor) 20 mg PO DAILY [facility] Last Admin: 07/01/17 09:38 Dose: 20 mg Benzonatate (Tessalon Perles) 100 mg PO TID [facility] Last Admin: 07/01/17 09:37 Dose: 100 mg Calcium Carbonate (Oscal) 500 mg PO DAILY [facility] Last Admin: 07/01/17 09:37 Dose: 500 mg Enoxaparin Sodium (Lovenox) 40 mg SC DAILY [facility] PRN Reason: Protocol Last Admin: 07/01/17 09:38 Dose: 40 mg Escitalopram Oxalate (Lexapro) 20 mg PO DAILY [facility] Last Admin: 07/01/17 09:37 Dose: 20 mg Home Med (Valsartan/Hydrochlorothiazide [Valsartan-Hctz 320-25 Mg Tab]) 1 tab PO DAILY [facility] Last Admin: 07/01/17 09:37 Dose: 1 tab Levofloxacin/Dextrose (Levaquin 500mg) 500 mg in 100 mls @ 100 mls/hr IVPB DAILY [facility] PRN Reason: Protocol Last Admin: 07/01/17 09:39 Dose: 100 mls/hr Methylprednisolone (Solu-Medrol) 60 mg IVP Q8H [facility] Last Admin: 07/01/17 05:05 Dose: 60 mg Oseltamivir Phosphate (Tamiflu Cap) 75 mg PO BID [facility] PRN Reason: Protocol Stop: 07/02/17 17:01 Last Admin: 07/01/17 09:38 Dose: 75 mg Results - Vital Signs Recent Vital Signs: Last Vital Signs Temp 98 F 07/01/17 12:48 Pulse 68 07/01/17 12:48 Resp 18 07/01/17 12:48 BP 131/73 07/01/17 12:48 Pulse Ox 97 07/01/17 12:48 - Labs Result Diagrams: 06/30/17 13:00 06/30/17 13:00 Labs: Laboratory Results - last 24 hr 06/30/17 07/01/17 17:39 07:22 Urine Color Straw Urine Clarity Clear Urine pH 7.0 Ur Specific [place] 1.008 Urine Protein Negative Urine Glucose (UA) Neg Urine Ketones Negative Urine Blood Small Urine Nitrate Negative Urine Bilirubin Negative Urine Urobilinogen 0.2-1.0 Ur Leukocyte Esterase Neg Urine RBC (Auto) 1 Urine Microscopic WBC < 1 Ur Squamous Epith Cells 1 Urine Bacteria Rare Ur L.pneumophila Ag Negative Assessment & Plan - Assessment and Plan (Free Text) Assessment: Dyspnea URTI Broncitis COPD exacerbation HTN Abnormal ECG Obesity Plan: Continue present medical management with oxygen, nebs, antibiotics, Tamiflu Monitor telemetry Stable cardiac burroughs, will follow up as needed Management d/w primary care team who is in agreement - Date & Time Date: 07/01/17 Time: 22:43
--- NOTE | 2017-07-01 18:36 | CP.PCM.PN ---
Subjective - Date & Time of Evaluation Date of Evaluation: 07/01/17 Time of Evaluation: 18:36 - Subjective Subjective: Improving still c/o cough SOB Objective - Vital Signs/Intake and Output Vital Signs (last 24 hours): Temp Pulse Resp BP Pulse Ox 97.9 F 61 20 159/74 H 96 07/01/17 15:28 07/01/17 15:28 07/01/17 15:28 07/01/17 15:28 07/01/17 15:28 - Medications Medications: Current Medications Amlodipine Besylate (Norvasc) 5 mg PO DAILY [facility] Last Admin: 07/01/17 09:37 Dose: 5 mg Atorvastatin Calcium (Lipitor) 20 mg PO DAILY [facility] Last Admin: 07/01/17 09:38 Dose: 20 mg Benzonatate (Tessalon Perles) 100 mg PO TID [facility] Last Admin: 07/01/17 17:17 Dose: 100 mg Calcium Carbonate (Oscal) 500 mg PO DAILY [facility] Last Admin: 07/01/17 09:37 Dose: 500 mg Enoxaparin Sodium (Lovenox) 40 mg SC DAILY [facility] PRN Reason: Protocol Last Admin: 07/01/17 09:38 Dose: 40 mg Escitalopram Oxalate (Lexapro) 20 mg PO DAILY [facility] Last Admin: 07/01/17 09:37 Dose: 20 mg Home Med (Valsartan/Hydrochlorothiazide [Valsartan-Hctz 320-25 Mg Tab]) 1 tab PO DAILY [facility] Last Admin: 07/01/17 09:37 Dose: 1 tab Levofloxacin/Dextrose (Levaquin 500mg) 500 mg in 100 mls @ 100 mls/hr IVPB DAILY [facility] PRN Reason: Protocol Last Admin: 07/01/17 09:39 Dose: 100 mls/hr Methylprednisolone (Solu-Medrol) 60 mg IVP Q8H [facility] Last Admin: 07/01/17 17:16 Dose: 60 mg Oseltamivir Phosphate (Tamiflu Cap) 75 mg PO BID [facility] PRN Reason: Protocol Stop: 07/02/17 17:01 Last Admin: 07/01/17 17:17 Dose: 75 mg - Labs Labs: 06/30/17 13:00 06/30/17 13:00 PT 12.0 Seconds (9.8-13.1) 06/29/17 12:55 INR 1.1 (0.9-1.2) 06/29/17 12:55 APTT 28.7 Seconds (25.6-37.1) 06/29/17 12:55 - Constitutional Appears: Non-toxic, Chronically Ill - Head Exam Head Exam: ATRAUMATIC, NORMAL INSPECTION, NORMOCEPHALIC - Eye Exam Eye Exam: Normal appearance - Neck Exam Neck Exam: Full ROM - Respiratory Exam Respiratory Exam: Decreased Breath Sounds - Cardiovascular Exam Cardiovascular Exam: REGULAR RHYTHM, +S1, +S2 - GI/Abdominal Exam GI & Abdominal Exam: Soft, Normal Bowel Sounds - Extremities Exam Extremities Exam: Full ROM - Neurological Exam Neurological Exam: Alert, Awake, CN II-XII Intact - Psychiatric Exam Psychiatric exam: Normal Mood Assessment and Plan (1) Interstitial pneumonia Status: Acute (2) Conjunctivitis Status: Acute (3) Cough Status: Acute (4) COPD (chronic obstructive pulmonary disease) Status: Acute (5) No response to treatment Status: Acute (6) Bradycardia Status: Acute (7) CAD (coronary artery disease) Status: Chronic (8) No response to treatment Status: Acute (9) Subconjunctival bleed Status: Acute (10) Subconjunctival bleed Status: Acute - Assessment and Plan (Free Text) Plan: Continue present rx will decrease iv steroid. Will follow clinically
[2017-07-02] MEDS: levoFLOXacin 500 mg in D5W 500 MG/100 ML BAG IVPB SCH (09:21)
--- NOTE | 2017-07-02 09:22 | PQF GENQUE ---
This form is a permanent part of the medical record 07/02/17 TERESO Poe MD has documented the following information ( Severe Sepsis ) with no mention of this diagnosis in your documentation. Please indicate in your next progress note and/or discharge summary your agreement with diagnosis or provide clarification that this diagnosis is not a current condition/ ruled out. Admitted with malaise, weakness all over, cough, congestion and dyspnea. Failed outpatient treatment. Documentation of CXR showing interstitial markings, leukocytosis ( WBC 14.6) and lactic acidosis ( 2.5->1.4). Being treated for Interstitial Pneumonia with IVAB. Temp 96.6- 98.2 HR 53-69 BP 145/60, 112/57, 109/62, 131/66 R 16-20 Clarification of your documentation is requested to better reflect the severity of illness and intensity of treatment of your patient. Indicators present [] Specify: [x] Sepsis ruled out [] Specify: [] [] Specify: [] [] Specify: [] Location in the medical record that reflects the above clinical findings: [] Treatment Provided: [] PHYSICIAN'S RESPONSE Based on your medical judgment of the clinical indicators outlined above please clarify the following: [] Practitioner response [] If unable to determine, please check the box, sign and date. Present On Admission (POA) Indicator: [] Present at the time of admission [] Not present at the time of admission [] Clinically Undetermined In responding to this query, please exercise your independent professional judgment. The fact that a question is asked does not imply that any particular answer is desired or expected. Thank you for your clarification on this documentation. If you have any questions please call:extension [phone] * Thank you, Marcie Rios RN CDSA[facility]
[2017-07-02] MEDS: Enoxaparin 40 mg Syringe SC SCH (09:23)
[2017-07-02] MEDS: Patient's Own Med (Valsartan/Hydrochlorothiazide [Valsartan-Hctz 320-25 Mg Tab] 1 TAB) PO SCH (09:29)
--- NOTE | 2017-07-02 14:52 | CP.PCM.DIS ---
Provider - Provider Date of Admission: 06/29/17 14:10 Attending physician: José Luis Camilo MD Time Spent in preparation of Discharge (in minutes): 30 Diagnosis - Discharge Diagnosis (1) Interstitial pneumonia Status: Acute (2) Conjunctivitis Status: Acute (3) Cough Status: Acute Priority: High (4) COPD (chronic obstructive pulmonary disease) Status: Acute (5) No response to treatment Status: Acute (6) Bradycardia Status: Acute (7) CAD (coronary artery disease) Status: Chronic (8) No response to treatment Status: Acute (9) Subconjunctival bleed Status: Acute (10) Subconjunctival bleed Status: Acute Hospital Course - Lab Results Lab Results: Micro Results 06/30/17 17:39 Sputum Gram Stain - Final 06/30/17 17:39 Sputum Sputum Culture - Final NORMAL [place]AL [place] 06/29/17 18:11 Blood Blood Culture - Preliminary NO GROWTH AFTER 48 HOURS 06/29/17 18:00 Blood Blood Culture - Preliminary NO GROWTH AFTER 48 HOURS Most Recent Lab Values WBC 11.6 K/uL (4.8-10.8) H 06/30/17 13:00 RBC 4.55 Mil/uL (3.80-5.20) 06/30/17 13:00 Hgb 12.4 g/dL (12.0-16.0) 06/30/17 13:00 Hct 37.7 % (34.0-47.0) 06/30/17 13:00 MCV 82.9 fl (81.0-99.0) 06/30/17 13:00 MCH 27.3 pg (27.0-31.0) 06/30/17 13:00 MCHC 32.9 g/dL (33.0-37.0) L 06/30/17 13:00 RDW 14.8 % (11.5-14.5) H 06/30/17 13:00 Plt Count 308 K/uL (130-400) 06/30/17 13:00 MPV 7.2 fl (7.2-11.7) 06/30/17 13:00 Neut % (Auto) 82.4 % (50.0-75.0) H 06/30/17 13:00 Lymph % (Auto) 14.6 % (20.0-40.0) L 06/30/17 13:00 [place] % (Auto) 2.9 % (0.0-10.0) 06/30/17 13:00 Eos % (Auto) 0.0 % (0.0-4.0) 06/30/17 13:00 Baso % (Auto) 0.1 % (0.0-2.0) 06/30/17 13:00 Neut # 9.6 K/uL (1.8-7.0) H 06/30/17 13:00 Lymph # 1.7 K/uL (1.0-4.3) 06/30/17 13:00 [place] # 0.3 K/uL (0.0-0.8) 06/30/17 13:00 Eos # 0.0 K/uL (0.0-0.7) 06/30/17 13:00 Baso # 0.0 K/uL (0.0-0.2) 06/30/17 13:00 PT 12.0 Seconds (9.8-13.1) 06/29/17 12:55 INR 1.1 (0.9-1.2) 06/29/17 12:55 APTT 28.7 Seconds (25.6-37.1) 06/29/17 12:55 D-Dimer, Quantitative 181 ng/mlDDU (0-230) 06/29/17 21:39 pO2 54 mm/Hg (30-55) 06/29/17 17:33 VBG pH 7.41 (7.32-7.43) 06/29/17 17:33 VBG pCO2 49 mmHg (40-60) 06/29/17 17:33 VBG HCO3 28.8 mmol/L 06/29/17 17:33 VBG Total CO2 32.6 mmol/L (22-28) H 06/29/17 17:33 VBG O2 Sat (Calc) 92.2 % (40-65) H 06/29/17 17:33 VBG Base Excess 5.3 mmol/L (0.0-2.0) H 06/29/17 17:33 VBG Potassium 3.4 mmol/L (3.6-5.2) L 06/29/17 17:33 Sodium 138.0 mmol/L (132-148) 06/29/17 17:33 Chloride 105.0 mmol/L (98-107) 06/29/17 17:33 Glucose 186 mg/dL (65-105) H 06/29/17 17:33 Lactate 1.4 mmol/L (0.7-2.1) 06/29/17 17:33 FiO2 21.0 % 06/29/17 17:33 Sodium 140 mmol/l (132-148) 06/30/17 13:00 Potassium 4.4 MMOL/L (3.6-5.0) 06/30/17 13:00 Chloride 99 mmol/L (98-107) 06/30/17 13:00 Carbon Dioxide 33 mmol/L (22-30) H 06/30/17 13:00 Anion Gap 12 (10-20) 06/30/17 13:00 BUN 16 mg/dl (7-17) 06/30/17 13:00 Creatinine 0.5 mg/dl (0.7-1.2) L 06/30/17 13:00 Est GFR ( Amer) > 60 06/30/17 13:00 Est GFR (Non-Af Amer) > 60 06/30/17 13:00 Random Glucose 175 mg/dL (65-105) H 06/30/17 13:00 Calcium 8.3 mg/dL (8.4-10.2) L 06/30/17 13:00 Phosphorus 2.6 mg/dl (2.5-4.5) 06/29/17 12:55 Magnesium 2.4 MG/DL (1.6-2.3) H 06/29/17 12:55 Total Bilirubin 0.2 mg/dl (0.2-1.3) 06/29/17 12:55 AST 27 U/L (14-36) 06/29/17 12:55 ALT 44 U/L (9-52) 06/29/17 12:55 Alkaline Phosphatase 64 U/L (38-126) 06/29/17 12:55 Troponin I < 0.0120 ng/mL (0.00-0.120) 06/29/17 21:39 NT-Pro-B Natriuret Pep 294 pg/ml (0-900) 06/29/17 12:55 Total Protein 7.2 G/DL (6.3-8.2) 06/29/17 12:55 Albumin 3.9 g/dL (3.5-5.0) 06/29/17 12:55 Globulin 3.4 gm/dL (2.2-3.9) 06/29/17 12:55 Albumin/Globulin Ratio 1.1 (1.0-2.1) 06/29/17 12:55 Procalcitonin < 0.05 NG/ML (0.19-0.49) L 06/30/17 21:10 TSH 3rd Generation 0.50 mIU/ML (0.46-4.68) 06/29/17 21:39 Venous Blood Potassium 3.4 mmol/L (3.6-5.2) L 06/29/17 17:33 Urine Color Straw (YELLOW) 06/30/17 17:39 Urine Clarity Clear (Clear) 06/30/17 17:39 Urine pH 7.0 (5.0-8.0) 06/30/17 17:39 Ur Specific [place] 1.008 (1.003-1.030) 06/30/17 17:39 Urine Protein Negative mg/dL (NEGATIVE) 06/30/17 17:39 Urine Glucose (UA) Neg mg/dL (Normal) 06/30/17 17:39 Urine Ketones Negative mg/dL (NEGATIVE) 06/30/17 17:39 Urine Blood Small (NEGATIVE) 06/30/17 17:39 Urine Nitrate Negative (NEGATIVE) 06/30/17 17:39 Urine Bilirubin Negative (NEGATIVE) 06/30/17 17:39 Urine Urobilinogen 0.2-1.0 mg/dL (0.2-1.0) 06/30/17 17:39 Ur Leukocyte Esterase Neg [place]/uL (Negative) 06/30/17 17:39 Urine RBC (Auto) 1 /hpf (0-3) 06/30/17 17:39 Urine Microscopic WBC < 1 /hpf (0-5) 06/30/17 17:39 Ur Squamous Epith Cells 1 /hpf (0-5) 06/30/17 17:39 Urine Bacteria Rare (<OCC) 06/30/17 17:39 Influenza Typ A,B (EIA) Negative for flu a/b (NEGATIVE) 06/29/17 12:55 Ur L.pneumophila Ag Negative (NEGATIVE) 07/01/17 07:22 - Hospital Course Hospital Course: Pt. with significant hx of CAD s/p stent presented in ER with general malaise and weakness cough, congestion, dyspnea, weakness all over. She was seen in her PMD office few days before this admission she was started on oral antibx. She was seen in ER on 06/27/16 and dc with new meds and antibiotics. She still has symptoms and not feeling well with severe dyspnea. The CXR reveled same interstitial marking, she has leukocytossis and lactic acidosis. The patient appears in same distresses and evidently she failed the present antibx therapy. She is dehydrated. She has bradycardia. The present diagnosis is interstitial pneumonia with exacerbation of COPD and bradycardia. Patient well responded to iv rx. Stable will dc home. Discharge Exam - Head Exam Head Exam: ATRAUMATIC, NORMAL INSPECTION, NORMOCEPHALIC Discharge Plan - Discharge Medications Prescriptions: Prednisone [Deltasone] 40 mg PO BID 3 Days #6 tablet amLODIPine [Norvasc] 5 mg PO DAILY #30 tab Simvastatin [Zocor] 40 mg PO DAILY #30 tablet - Follow Up Plan Condition: FAIR Disposition: HOME/ ROUTINE Instructions: Prednisone (By mouth), Amlodipine (By mouth), Simvastatin (By mouth), Levofloxacin (By mouth), Valsartan (By mouth), Escitalopram (By mouth), Pneumonia (DC) Additional Instructions: follow up with Dr Camilo in 2 days 07/04/17. Referrals: José Luis Camilo MD [Staff Provider] - Shankar Miller MD [Staff Provider] -
[2017-07-02 15:37] VITALS: BP 159/73; PULSE 68; RESP 20; TEMP 97.7; O2SAT 94
== END 2017-07-02 19:50 | disposition home health service (06) | DRG 197 ==
LOC: H.ER 11:03 → H.ERHOLD 14:10 → H.TEL 17:39
PROVIDERS: ADMIT Internal Medicine; ATTEND Internal Medicine
PROC: 3E0234Z Introduction of Serum, Toxoid and Vaccine into Muscle, Percutaneous Approach (ICD-10-PCS; principal; 2017-06-30)
DX: J84.9 Interstitial pulmonary disease, unspecified (principal); E87.2 Acidosis; J44.0 Chronic obstructive pulmonary disease with (acute) lower respiratory infection; J44.1 Chronic obstructive pulmonary disease with (acute) exacerbation; R00.1 Bradycardia, unspecified; E86.0 Dehydration; E66.9 Obesity, unspecified; F32.9 Major depressive disorder, single episode, unspecified; Z87.01 Personal history of pneumonia (recurrent); Z87.891 Personal history of nicotine dependence; Z95.5 Presence of coronary angioplasty implant and graft; F45.9 Somatoform disorder, unspecified; M19.90 Unspecified osteoarthritis, unspecified site; Z68.29 Body mass index [BMI] 29.0-29.9, adult; E78.00 Pure hypercholesterolemia, unspecified; H10.9 Unspecified conjunctivitis; H11.30 Conjunctival hemorrhage, unspecified eye; I10 Essential (primary) hypertension; I25.10 Atherosclerotic heart disease of native coronary artery without angina pectoris; J06.9 Acute upper respiratory infection, unspecified; Z23 Encounter for immunization

== ENCOUNTER 2017-09-01 09:42 | Inpatient (IN) | payer MEDICARE, BC ==
[2017-09-01 09:43] VITALS: BMI 29.2
[2017-09-01] MEDS ORDERED: Albuterol-Ipratrop 3 mg / 0.5 (3 ml) UD ONE ×2 (10:04→12:05)
[2017-09-01] MEDS ORDERED: Albuterol-Ipratrop 3 mg / 0.5 (3 ml) UD INH STA ×4 (10:12→11:53)
[2017-09-01] MEDS ORDERED: Azithromycin 500 MG in Sodium Chloride 0.9% 250 ML IV STA (10:12)
[2017-09-01 10:31] LABS: VENOUS BLOOD GAS PCO2 71 mmHg (40-60); VENOUS BLOOD GAS PO2 25 mm/Hg (30-55)
[2017-09-01 10:40] LABS: BASO # 0.1 K/uL (0.0-0.2); BASO % 0.8 % (0.0-2.0); EOS # 0.1 K/uL (0.0-0.7); EOS % 1.3 % (0.0-4.0); HEMOGLOBIN 14.3 g/dL (12.0-16.0); LYMPH # 3.5 K/uL (1.0-4.3); LYMPH % 41.9 % (20.0-40.0); MEAN CELL VOLUME 82.7 fl (81.0-99.0); MEAN CORPUSCULAR HEMOGLOBIN 27.1 pg (27.0-31.0); MEAN CORPUSCULAR HGB CONC 32.8 g/dL (33.0-37.0); MEAN PLATELET VOLUME 8.3 fl (7.2-11.7); MONO # 0.9 K/uL (0.0-0.8); MONO % 11.1 % (0.0-10.0); NEUT # 3.7 K/uL (1.8-7.0); NEUT % 44.9 % (50.0-75.0); NRBC % 0.9 % (0.0-0.0); RBC 5.27 Mil/uL (3.80-5.20); RED CELL DISTRIBUTION WIDTH 16.3 % (11.5-14.5); WHITE BLOOD COUNT 8.3 K/uL (4.8-10.8)
--- NOTE | 2017-09-01 10:45 | ED PDOC ---
History of Present Illness History of Present Illness: Pt BIBA according to son pt with SOB and nonproductive cough X 2 days, worse since last PM. Denies CP, palpitations. HPI: Influenza Time Seen by Provider: 09/01/17 09:58 Chief Complaint: Cough, Cold, Congestion Past Medical History Reviewed: Nursing Documentation, Vital Signs Vital Signs: Last Vital Signs Temp 102 F H 09/01/17 10:01 Pulse 83 09/01/17 10:01 Resp 22 09/01/17 10:01 BP 153/88 H 09/01/17 10:01 Pulse Ox 99 09/01/17 10:01 - Medical History PMH: Arthritis, CAD, COPD, Depression, HTN, Hypercholesterolemia, Pneumonia Denies: Diabetes, Chronic Kidney Disease - Surgical History Surgical History: Coronary Stent Denies: CABG - Family History Family History: States: Unknown Family Hx - Living Arrangements Living Arrangements: With Family - Social History Current smoker - smoking cessation education provided: No - Allergies Allergies/Adverse Reactions: Allergies Allergy/AdvReac Type Severity Reaction Status Date / Time No Known Allergies Allergy Verified 06/27/17 18:19 Review of Systems Review Of Systems: ROS cannot be obtained secondary to pt's inabilty to answer questions. Physical Exam - Reviewed Nursing Documentation Reviewed: Yes Vital Signs Reviewed: Yes - Physical Exam Appears: Positive for: In Acute Distress (Moderate painful distress) Skin: Positive for: Normal Color, Warm, Dry Eye Exam: Positive for: Normal appearance, EOMI, PERRL Cardiovascular/Chest: Positive for: Regular Rate, Rhythm Respiratory: Positive for: Decreased Breath Sounds, Accessory Muscle Use, Wheezing (Bilateral), Respiratory Distress (Moderate), Other (Audible wheezing) Extremity: Positive for: Normal ROM Neurologic/Psych: Positive for: Alert, fagoter II-XII, Oriented. Negative for: Motor/Sensory Deficits Medical Decision Making Medical Decision Makin yo female with fever, SOB and cough. - labs - EKG - CXR - Duonebs - Solumedrol - Tylenol - Laboratory Results Result Diagrams: 09/01/17 10:15 09/01/17 10:15 - ECG Interpretation Of ECG: NSR @ 88, LBBB (old compared to 06/29/17). O2 Sat by Pulse Oximetry: 99 Pulse Ox Interpretation: Normal - Radiology X-Ray: Interpreted by Me X-Ray Interpretation: Infiltrates - Physician Consult Information Time Consulting Physican Contacted: 12:05 Physician Contacted: José Luis Camilo - Critical Care Total Time (In Min): 45 Disposition - Clinical Impression Clinical Impression: Pneumonia, Severe sepsis - Patient ED Disposition Is Patient to be Admitted: Yes - Disposition Disposition Time: 12:10 Condition: GUARDED Forms: [facility] (Sami) - Pt Status Changed To: Hospital Disposition Of: Inpatient - Admit Certification Admit to Inpatient:: After my assessment, the patient will require hospitalization for at least two midnights. This is because of the severity of symptoms shown, intensity of services needed, and/or the medical risk in this patient being treated as an outpatient. - POA Present On Arrival: None
[2017-09-01 11:30] LABS: ALB/GLOB RATIO 1.2 (1.0-2.1); ALT/SGPT 28 U/L (9-52); AST/SGOT 30 U/L (14-36); BLOOD UREA NITROGEN 21 mg/dl (7-17); CALCIUM 8.9 mg/dL (8.4-10.2); GFR AFRICAN-AMERICAN > 60; GFR NON-AFRICAN AMERICAN > 60
[2017-09-01 12:35] LABS: B-TYPE NATRIURETIC PEPTIDE 122 pg/ml (0-900)
--- NOTE | 2017-09-01 13:45 | RAD ---
HISTORY: SOB COMPARISON: No prior. FINDINGS: LUNGS: No active pulmonary disease. PLEURA: No significant pleural effusion identified, no pneumothorax apparent. CARDIOVASCULAR: Normal. OSSEOUS STRUCTURES: No significant abnormalities. VISUALIZED UPPER ABDOMEN: Normal. OTHER FINDINGS: None. IMPRESSION: No active disease.
[2017-09-01 14:06] LABS: PROTHROMBIN TIME 12.9 Seconds (9.8-13.1)
[2017-09-01 14:07] LABS: INR 1.2 (0.9-1.2)
[2017-09-01 15:03] LABS: SQUAMOUS EPITHIAL 6 /hpf (0-5); URINE BACTERIA RARE (<OCC); URINE BILIRUBIN NEGATIVE (NEGATIVE); URINE BLOOD SMALL (NEGATIVE); URINE CLARITY CLOUDY (Clear); URINE COLOR YELLOW (YELLOW); URINE GLUCOSE (UA) NEG (Normal); URINE LEUKOCYTE ESTERASE NEG Leu/uL (Negative); URINE PROTEIN NEGATIVE (NEGATIVE); URINE UROBILINOGEN 0.2-1.0 mg/dL (0.2-1.0)
[2017-09-01] MEDS ORDERED: IBANDRONATE SODIUM PO SCH (15:45)
[2017-09-01] MEDS: Sodium Chloride 0.9% 1,000 ML IV SCH (16:00)
--- NOTE | 2017-09-01 16:22 | CP.PCM.HP ---
History of Present Illness - History of Present Illness History of Present Illness: 72 y/o lady with hx of depression, htn, gerd, morbid obesity presented in ER with severe dyspnea of sudden onset, associated with cough, sob, tachypnea and choking sensation. In ER the patient improved with iv steroid. At present time still anxious RR 26/30 with decrease BS BL same diffuse wheezing and a minor stridor. Present on Admission - Present on Admission Any Indicators Present on Admission: No Review of Systems - Review of Systems Systems not reviewed;Unavailable: Respiratory Distress - Constitutional Constitutional: Weakness - EENT Eyes: As Per HPI - Cardiovascular Cardiovascular: Dyspnea, Dyspnea on Exertion - Respiratory Respiratory: Dyspnea, Dyspnea on Exertion, Chest Congestion - Gastrointestinal Gastrointestinal: As Per HPI - Musculoskeletal Musculoskeletal: As Per HPI - Integumentary Integumentary: As Per HPI - Neurological Neurological: As Per HPI - Psychiatric Psychiatric: Depression Past Patient History - Infectious Disease Hx of Infectious Diseases: None - Past Medical History & Family History Past Medical History?: Yes - Past Social History Smoking Status: Former Smoker - CARDIAC Hx Cardiac Disorders: Yes - PULMONARY Hx Respiratory Disorders: Yes - NEUROLOGICAL Hx Neurological Disorder: No - HEENT Hx HEENT Problems: No - RENAL Hx Chronic Kidney Disease: No - ENDOCRINE/METABOLIC Hx Endocrine Disorders: No - HEMATOLOGICAL/ONCOLOGICAL Hx Blood Disorders: No - INTEGUMENTARY Hx Dermatological Problems: No - MUSCULOSKELETAL/RHEUMATOLOGICAL Hx Musculoskeletal Disorders: Yes - GASTROINTESTINAL Hx Gastrointestinal Disorders: No - GENITOURINARY/GYNECOLOGICAL Hx Genitourinary Disorders: No - PSYCHIATRIC Hx Psychophysiologic Disorder: Yes - SURGICAL HISTORY Hx Coronary Artery Bypass Graft: No Hx Coronary Stent: Yes - ANESTHESIA Hx Anesthesia: Yes Hx Anesthesia Reactions: No Hx Malignant Hyperthermia: No Meds Allergies/Adverse Reactions: Allergies Allergy/AdvReac Type Severity Reaction Status Date / Time No Known Allergies Allergy Verified 06/27/17 18:19 Physical Exam - Constitutional Appears: Chronically Ill Additional comments: tachypnea - Head Exam Head Exam: ATRAUMATIC, NORMAL INSPECTION, NORMOCEPHALIC - Eye Exam Eye Exam: Normal appearance - ENT Exam ENT Exam: Mucous Membranes Moist - Neck Exam Additional comments: minimal stridor - Cardiovascular Exam Cardiovascular Exam: REGULAR RHYTHM, +S1, +S2 - GI/Abdominal Exam GI & Abdominal Exam: Normal Bowel Sounds - Neurological Exam Neurological exam: Alert, CN II-XII Intact, Oriented x3 - Psychiatric Exam Psychiatric exam: Anxious - Skin Skin Exam: Normal Color Results - Vital Signs Recent Vital Signs: Last Vital Signs Temp 99.2 F 09/01/17 14:30 Pulse 85 09/01/17 14:30 Resp 16 09/01/17 14:30 BP 111/68 09/01/17 14:30 Pulse Ox 98 09/01/17 14:30 - Labs Result Diagrams: 09/01/17 10:15 09/01/17 10:15 Labs: Laboratory Results - last 24 hr 09/01/17 09/01/17 09/01/17 10:15 10:15 10:25 WBC 8.3 RBC 5.27 H Hgb 14.3 Hct 43.6 MCV 82.7 MCH 27.1 MCHC 32.8 L RDW 16.3 H Plt Count 275 MPV 8.3 Neut % (Auto) 44.9 L Lymph % (Auto) 41.9 H [place] % (Auto) 11.1 H Eos % (Auto) 1.3 Baso % (Auto) 0.8 Neut # (Auto) 3.7 Lymph # (Auto) 3.5 [place] # (Auto) 0.9 H Eos # (Auto) 0.1 Baso # (Auto) 0.1 PT INR APTT pO2 25 L VBG pH 7.30 L VBG pCO2 71 H* VBG HCO3 28.0 VBG Total CO2 37.1 H VBG O2 Sat (Calc) 39.8 L VBG Base Excess 6.0 H VBG Potassium 3.9 Glucose 103 Lactate 2.0 FiO2 21.0 Crit Value Called To Pooja marie Crit Value Called By [id number] Crit Value Read Back Y Blood Gas Notified Time 1030 Sodium 138 136.0 Potassium 3.6 Chloride 91 L 97.0 L Carbon Dioxide 32 H Anion Gap 19 BUN 21 H Creatinine 0.7 Est GFR ( Amer) > 60 Est GFR (Non-Af Amer) > 60 Random Glucose 142 H Calcium 8.9 Total Bilirubin 0.5 AST 30 ALT 28 Alkaline Phosphatase 55 Troponin I NT-Pro-B Natriuret Pep Total Protein 7.2 Albumin 4.0 Globulin 3.2 Albumin/Globulin Ratio 1.2 Venous Blood Potassium 3.9 Urine Color Urine Clarity Urine pH Ur Specific [place] Urine Protein Urine Glucose (UA) Urine Ketones Urine Blood Urine Nitrate Urine Bilirubin Urine Urobilinogen Ur Leukocyte Esterase Urine RBC (Auto) Urine Microscopic WBC Ur Squamous Epith Cells Urine Bacteria Influenza Typ A,B (EIA) 09/01/17 09/01/17 09/01/17 10:40 12:10 13:50 WBC RBC Hgb Hct MCV MCH MCHC RDW Plt Count MPV Neut % (Auto) Lymph % (Auto) [place] % (Auto) Eos % (Auto) Baso % (Auto) Neut # (Auto) Lymph # (Auto) [place] # (Auto) Eos # (Auto) Baso # (Auto) PT 12.9 INR 1.2 APTT 30.0 pO2 VBG pH VBG pCO2 VBG HCO3 VBG Total CO2 VBG O2 Sat (Calc) VBG Base Excess VBG Potassium Glucose Lactate FiO2 Crit Value Called To Crit Value Called By Crit Value Read Back Blood Gas Notified Time Sodium Potassium Chloride Carbon Dioxide Anion Gap BUN Creatinine Est GFR ( Amer) Est GFR (Non-Af Amer) Random Glucose Calcium Total Bilirubin AST ALT Alkaline Phosphatase Troponin I < 0.0120 NT-Pro-B Natriuret Pep 122 Total Protein Albumin Globulin Albumin/Globulin Ratio Venous Blood Potassium Urine Color Urine Clarity Urine pH Ur Specific [place] Urine Protein Urine Glucose (UA) Urine Ketones Urine Blood Urine Nitrate Urine Bilirubin Urine Urobilinogen Ur Leukocyte Esterase Urine RBC (Auto) Urine Microscopic WBC Ur Squamous Epith Cells Urine Bacteria Influenza Typ A,B (EIA) Negative for flu a/b 09/01/17 14:50 WBC RBC Hgb Hct MCV MCH MCHC RDW Plt Count MPV Neut % (Auto) Lymph % (Auto) [place] % (Auto) Eos % (Auto) Baso % (Auto) Neut # (Auto) Lymph # (Auto) [place] # (Auto) Eos # (Auto) Baso # (Auto) PT INR APTT pO2 VBG pH VBG pCO2 VBG HCO3 VBG Total CO2 VBG O2 Sat (Calc) VBG Base Excess VBG Potassium Glucose Lactate FiO2 Crit Value Called To Crit Value Called By Crit Value Read Back Blood Gas Notified Time Sodium Potassium Chloride Carbon Dioxide Anion Gap BUN Creatinine Est GFR ( Amer) Est GFR (Non-Af Amer) Random Glucose Calcium Total Bilirubin AST ALT Alkaline Phosphatase Troponin I NT-Pro-B Natriuret Pep Total Protein Albumin Globulin Albumin/Globulin Ratio Venous Blood Potassium Urine Color Yellow Urine Clarity Cloudy Urine pH 6.0 Ur Specific [place] 1.016 Urine Protein Negative Urine Glucose (UA) Neg Urine Ketones Trace Urine Blood Small Urine Nitrate Negative Urine Bilirubin Negative Urine Urobilinogen 0.2-1.0 Ur Leukocyte Esterase Neg Urine RBC (Auto) 11 H Urine Microscopic WBC < 1 Ur Squamous Epith Cells 6 H Urine Bacteria Rare Influenza Typ A,B (EIA) Assessment & Plan (1) GERD (gastroesophageal reflux disease) Status: Chronic (2) Stridor Status: Suspected (3) COPD (chronic obstructive pulmonary disease) Status: Chronic (4) Cough Status: Acute Priority: High (5) CAD (coronary artery disease) Status: Chronic (6) Obesity (BMI 30-39.9) Status: Chronic (7) Depression Status: Chronic (8) Dyspnea and respiratory abnormalities Status: Acute - Assessment and Plan (Free Text) Plan: Patient improving with present Rx. At her arrival in ER she was in severe distress, but she respond well to iv steroid. Will investigate about the stridor ,probable secondary to GERD. Will follow consult and radiology studies. Patient for telemetry f/u.
[2017-09-01] MEDS ORDERED: methylPREDNISolone 60 MG in Sodium Chloride 0.9% 50 ML IVPB SCH (17:00)
--- NOTE | 2017-09-01 17:00 | CARD ---
APPROVED REPORT EKG Measurement Heart [id number] <Conclusion> Normal sinus rhythm Left bundle branch block Abnormal ECG
--- NOTE | 2017-09-01 19:57 | US ---
EXAM: US Duplex Bilateral Lower Extremity Veins CLINICAL HISTORY: 72 years old, female; Pain; Leg, lower; Bilateral; Additional info: R/O dvt TECHNIQUE: Real-time ultrasound scan of the veins of the bilateral lower extremities with color Doppler flow, spectral waveform analysis and compression. COMPARISON: US - DUPLEX LOWER EXTRM VEIN RIGHT 2015-09-11 11:25 FINDINGS: Right deep veins: No DVT in the right common femoral, femoral, popliteal or posterior tibial veins. The veins demonstrate normal color flow, are normally compressible, with normal phasic flow and/or augmentation response. Right superficial veins: No thrombus in the visualized right great saphenous vein. Left deep veins: No DVT in the left common femoral, femoral, proximal deep femoral, popliteal or posterior tibial veins. The veins demonstrate normal color flow, are normally compressible, with normal phasic flow and/or augmentation response. Left superficial veins: No thrombus in the visualized left great saphenous vein. Soft tissues: No acute findings. IMPRESSION: No evidence of deep venous thrombosis in the visualized veins of the bilateral lower extremities.
[2017-09-01] MEDS ORDERED: Iodixanol 320 MG/ML 100 ML BOTTLE IV ONE (20:01)
[2017-09-01] MEDS ORDERED: Sodium Chloride 0.9% 100 ML ONE (20:01)
--- NOTE | 2017-09-01 20:56 | CT ---
EXAM: CT Chest With Intravenous Contrast CLINICAL HISTORY: 72 years old, female; Signs and symptoms; Bronchospasm; Additional info: Pneumonia, sepsis, laryngospasm. R/O pe TECHNIQUE: Axial computed tomography images of the chest with intravenous contrast during the arterial phase of enhancement. All CT scans at this facility use one or more dose reduction techniques, viz.: automated exposure control; ma/kV adjustment per patient size (including targeted exams where dose is matched to indication; i.e. head); or iterative reconstruction technique. Coronal reformatted images were created and reviewed. CONTRAST: 95 mL of [id number] administered intravenously. COMPARISON: No relevant prior studies available. FINDINGS: Pulmonary arteries: Imaging protocol and contrast timing are adequate for complete assessment for pulmonary arterial embolism, and respiratory motion artifact limit sensitivity and specificity for small segmental and subsegmental pulmonary arterial emboli. No large central pulmonary arterial thrombus. Aorta: Atherosclerosis. No thoracic aortic aneurysm. Lungs/pleura: 5 mm pleural-based nodule along the right horizontal fissure, series 5 image 48. Minimal atelectasis or scarring. No consolidation. No significant effusion. No pneumothorax. Heart: No cardiomegaly. No significant pericardial effusion. No evidence of RV dysfunction. Bones: Degenerative changes. Lymph nodes: Shotty nodes. Upper abdomen: Small hiatal hernia. Prominence of the bilateral adrenal glands. Retained fecal material in colon. IMPRESSION: Imaging protocol and contrast timing are adequate for complete assessment for pulmonary arterial embolism, and respiratory motion artifact limit sensitivity and specificity for small segmental and subsegmental pulmonary arterial emboli. No large central pulmonary arterial thrombus. 5 mm pleural-based nodule along the right horizontal fissure, series 5 image 48. Minimal atelectasis or scarring. Small hiatal hernia. Prominence of the bilateral adrenal glands. Retained fecal material in colon.
[2017-09-01 21:58] LABS: FOLATE 17.5 ng/mL
--- NOTE | 2017-09-01 22:28 | CT ---
EXAM: CT Neck With Intravenous Contrast EXAM DATE/TIME: 09/01/2017 7:45 PM CLINICAL HISTORY: 72 years old, female; Condition or disease; Other: Pneumonia; Additional info: Laryngospsm, pneumonia, sepsi TECHNIQUE: Axial computed tomography images of the neck with intravenous contrast. All CT scans at this facility use one or more dose reduction techniques, viz.: automated exposure control; ma/kV adjustment per patient size (including targeted exams where dose is matched to indication; i.e. head); or iterative reconstruction technique. MIP reconstructed images were created and reviewed. Coronal and sagittal reformatted images were created and reviewed. CONTRAST: 95 mL of [id number] administered intravenously. COMPARISON: No relevant prior studies available. FINDINGS: NASOPHARYNX: No acute abnormality of the nasopharyngeal/adenoidal tonsils identified. OROPHARYNX: No acute abnormality of the palatine tonsils identified. No evidence of peritonsillar abscess. HYPOPHARYNX: No acute abnormality of the hypopharyngeal structures identified. LARYNX: No acute abnormality of the vocal cords identified. No acute abnormality of the epiglottis identified. TRACHEA: Trachea appears patent. RETROPHARYNGEAL SPACE: No evidence of prevertebral/retropharyngeal fluid or fluid collection. SUBMANDIBULAR/PAROTID GLANDS: Enlargement of the right parotid gland compared with the left, of uncertain clinical significance, but could be secondary to right-sided parotiditis. There is no evidence of significant adjacent soft tissue swelling. THYROID: No acute abnormality of the thyroid gland identified. BONES/JOINTS: No acute fractures or other acute bony abnormality noted. SOFT TISSUES: No findings to suggest significant cellulitis of the soft tissues. 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 LYMPH NODES: Multiple small lymph nodes seen in the neck bilaterally a, none appearing pathologically enlarged. This is a nonspecific finding. MASTOID AIR CELLS: Fluid in the mastoid air cells bilaterally, suspicious for bilateral mastoiditis. AUDITORY SYSTEM: Fluid in the left middle ear cavity, surrounding the left ossicles, suspicious for left otitis media. Soft tissue in the left epitympanum and, and cannot rule out a left-sided cholesteatoma. ESOPHAGUS: No acute abnormality of the upper esophagus identified. IMPRESSION: - Findings suspicious for left-sided otomastoiditis. There are also findings which could be due to an underlying left-sided cholesteatoma. - Enlargement of the right parotid gland compared with the left, of uncertain clinical significance, but could be secondary to mild right-sided parotiditis. Recommend clinical correlation. - Findings suspicious for right-sided mastoiditis. - Otherwise, no evidence of significant acute process. - See above for remaining findings.
[2017-09-02] MEDS: Albuterol-Ipratrop 3 mg / 0.5 (3 ml) UD INH PRN ×3 (01:16→20:41)
[2017-09-02 08:51] LABS: BASO % 0.2 % (0.0-2.0); HEMOGLOBIN 13.7 g/dL (12.0-16.0); LYMPH # 2.9 K/uL (1.0-4.3); LYMPH % 24.3 % (20.0-40.0); MEAN CELL VOLUME 82.7 fl (81.0-99.0); MEAN CORPUSCULAR HEMOGLOBIN 27.5 pg (27.0-31.0); MEAN CORPUSCULAR HGB CONC 33.3 g/dL (33.0-37.0); MEAN PLATELET VOLUME 7.9 fl (7.2-11.7); MONO # 0.4 K/uL (0.0-0.8); MONO % 3.4 % (0.0-10.0); NEUT # 8.7 K/uL (1.8-7.0); NEUT % 72.1 % (50.0-75.0); NRBC % 0.1 % (0.0-0.0); RBC 4.99 Mil/uL (3.80-5.20); RED CELL DISTRIBUTION WIDTH 15.6 % (11.5-14.5); WHITE BLOOD COUNT 12.1 K/uL (4.8-10.8)
[2017-09-02] MEDS ORDERED: Azithromycin 500 MG in Sodium Chloride 0.9% 250 ML IVPB SCH (09:00)
[2017-09-02 09:11] LABS: BLOOD UREA NITROGEN 19 mg/dl (7-17); GFR AFRICAN-AMERICAN > 60; GFR NON-AFRICAN AMERICAN > 60
[2017-09-02] MEDS: Enoxaparin 40 mg Syringe SC SCH (09:58)
[2017-09-02] MEDS: Sodium Chloride 0.9% 1,000 ML IV SCH (10:06)
--- NOTE | 2017-09-02 11:08 | CP.PCM.CON ---
Past Patient History - Infectious Disease Hx of Infectious Diseases: None - Past Medical History & Family History Past Medical History?: Yes - Past Social History Smoking Status: Former Smoker - CARDIAC Hx Cardiac Disorders: Yes Hx Hypercholesterolemia: Yes Hx Hypertension: Yes - PULMONARY Hx Respiratory Disorders: Yes Hx Pneumonia: Yes - NEUROLOGICAL Hx Neurological Disorder: No - HEENT Hx HEENT Problems: No - RENAL Hx Chronic Kidney Disease: No - ENDOCRINE/METABOLIC Hx Endocrine Disorders: No - HEMATOLOGICAL/ONCOLOGICAL Hx Blood Disorders: No Hx AIDS: No Hx Human Immunodeficiency Virus (HIV): No - INTEGUMENTARY Hx Dermatological Problems: No - MUSCULOSKELETAL/RHEUMATOLOGICAL Hx Musculoskeletal Disorders: Yes Hx Arthritis: Yes Hx Falls: No - GASTROINTESTINAL Hx Gastrointestinal Disorders: No - GENITOURINARY/GYNECOLOGICAL Hx Genitourinary Disorders: No - PSYCHIATRIC Hx Psychophysiologic Disorder: Yes Hx Substance Use: No - SURGICAL HISTORY Hx Surgeries: Yes Hx Section: Yes Hx Coronary Stent: Yes - ANESTHESIA Hx Anesthesia: Yes Hx Anesthesia Reactions: No Hx Malignant Hyperthermia: No Has any member of the family had a problem w/ anesthesia?: No Meds Allergies/Adverse Reactions: Allergies Allergy/AdvReac Type Severity Reaction Status Date / Time No Known Allergies Allergy Verified 06/27/17 18:19 - Medications Medications: Current Medications Albuterol/Ipratropium (Duoneb 3 Mg/0.5 Mg (3 Ml) Ud) 3 ml INH RQ6 PRN PRN Reason: Shortness of Breath Last Admin: 09/02/17 07:34 Dose: 3 ml Calcium Carbonate (Oscal) 500 mg PO DAILY [facility] Last Admin: 09/02/17 09:58 Dose: 500 mg Enoxaparin Sodium (Lovenox) 40 mg SC DAILY [facility] PRN Reason: Protocol Last Admin: 09/02/17 09:58 Dose: 40 mg Escitalopram Oxalate (Lexapro) 20 mg PO DAILY [facility] Last Admin: 09/02/17 09:58 Dose: 20 mg Azithromycin 500 mg/ Sodium (Chloride) 250 mls @ 250 mls/hr IVPB DAILY [facility] PRN Reason: Protocol Sodium Chloride (Sodium Chloride 0.9%) 1,000 mls @ 75 mls/hr IV .[id number] [facility] Stop: 09/02/17 15:45 Last Admin: 09/02/17 10:06 Dose: 75 mls/hr Methylprednisolone (Solu-Medrol) 60 mg IVP Q8 [facility] Last Admin: 09/02/17 09:53 Dose: 60 mg Pantoprazole Sodium (Protonix Inj) 40 mg IVP DAILY [facility] Last Admin: 09/02/17 09:58 Dose: 40 mg Results - Vital Signs Recent Vital Signs: Last Vital Signs Temp 99.4 F 09/02/17 08:09 Pulse 85 09/02/17 08:52 Resp 18 09/02/17 08:09 BP 130/65 09/02/17 08:52 Pulse Ox 95 09/02/17 08:09 - Labs Result Diagrams: 09/02/17 08:30 09/02/17 08:30 Labs: Laboratory Results - last 24 hr 09/01/17 09/01/17 09/01/17 00:25 10:15 10:40 WBC RBC Hgb Hct MCV MCH MCHC RDW Plt Count MPV Neut % (Auto) Lymph % (Auto) [facility] % (Auto) Eos % (Auto) Baso % (Auto) Neut # (Auto) Lymph # (Auto) [facility] # (Auto) Eos # (Auto) Baso # (Auto) PT INR APTT D-Dimer, Quantitative Sodium 138 Potassium 3.6 Chloride 91 L Carbon Dioxide 32 H Anion Gap 19 BUN 21 H Creatinine 0.7 Est GFR ( Amer) > 60 Est GFR (Non-Af Amer) > 60 Random Glucose 142 H Calcium 8.9 Total Bilirubin 0.5 AST 30 ALT 28 Alkaline Phosphatase 55 Troponin I < 0.0120 NT-Pro-B Natriuret Pep Total Protein 7.2 Albumin 4.0 Globulin 3.2 Albumin/Globulin Ratio 1.2 Vitamin B12 Folate TSH 3rd Generation Urine Color Urine Clarity Urine pH Ur Specific [place] Urine Protein Urine Glucose (UA) Urine Ketones Urine Blood Urine Nitrate Urine Bilirubin Urine Urobilinogen Ur Leukocyte Esterase Urine RBC (Auto) Urine Microscopic WBC Ur Squamous Epith Cells Urine Bacteria Influenza Typ A,B (EIA) Negative for flu a/b 09/01/17 09/01/17 09/01/17 12:10 13:50 14:50 WBC RBC Hgb Hct MCV MCH MCHC RDW Plt Count MPV Neut % (Auto) Lymph % (Auto) [facility] % (Auto) Eos % (Auto) Baso % (Auto) Neut # (Auto) Lymph # (Auto) [facility] # (Auto) Eos # (Auto) Baso # (Auto) PT 12.9 INR 1.2 APTT 30.0 D-Dimer, Quantitative Sodium Potassium Chloride Carbon Dioxide Anion Gap BUN Creatinine Est GFR ( Amer) Est GFR (Non-Af Amer) Random Glucose Calcium Total Bilirubin AST ALT Alkaline Phosphatase Troponin I < 0.0120 NT-Pro-B Natriuret Pep 122 Total Protein Albumin Globulin Albumin/Globulin Ratio Vitamin B12 Folate TSH 3rd Generation Urine Color Yellow Urine Clarity Cloudy Urine pH 6.0 Ur Specific [place] 1.016 Urine Protein Negative Urine Glucose (UA) Neg Urine Ketones Trace Urine Blood Small Urine Nitrate Negative Urine Bilirubin Negative Urine Urobilinogen 0.2-1.0 Ur Leukocyte Esterase Neg Urine RBC (Auto) 11 H Urine Microscopic WBC < 1 Ur Squamous Epith Cells 6 H Urine Bacteria Rare Influenza Typ A,B (EIA) 09/01/17 09/01/17 09/02/17 16:12 16:16 08:30 WBC 12.1 H RBC 4.99 Hgb 13.7 Hct 41.3 MCV 82.7 MCH 27.5 MCHC 33.3 RDW 15.6 H Plt Count 238 MPV 7.9 Neut % (Auto) 72.1 Lymph % (Auto) 24.3 [facility] % (Auto) 3.4 Eos % (Auto) 0.0 Baso % (Auto) 0.2 Neut # (Auto) 8.7 H Lymph # (Auto) 2.9 [facility] # (Auto) 0.4 Eos # (Auto) 0.0 Baso # (Auto) 0.0 PT INR APTT D-Dimer, Quantitative 296 H Sodium Potassium Chloride Carbon Dioxide Anion Gap BUN Creatinine Est GFR ( Amer) Est GFR (Non-Af Amer) Random Glucose Calcium Total Bilirubin AST ALT Alkaline Phosphatase Troponin I < 0.0120 NT-Pro-B Natriuret Pep Total Protein Albumin Globulin Albumin/Globulin Ratio Vitamin B12 467 Folate 17.5 TSH 3rd Generation 0.58 Urine Color Urine Clarity Urine pH Ur Specific [place] Urine Protein Urine Glucose (UA) Urine Ketones Urine Blood Urine Nitrate Urine Bilirubin Urine Urobilinogen Ur Leukocyte Esterase Urine RBC (Auto) Urine Microscopic WBC Ur Squamous Epith Cells Urine Bacteria Influenza Typ A,B (EIA) 09/02/17 08:30 WBC RBC Hgb Hct MCV MCH MCHC RDW Plt Count MPV Neut % (Auto) Lymph % (Auto) [facility] [facility] % (Auto) Eos % (Auto) Baso % (Auto) Neut # (Auto) Lymph # (Auto) [facility] # (Auto) Eos # (Auto) Baso # (Auto) PT INR APTT D-Dimer, Quantitative Sodium 138 Potassium 3.6 Chloride 93 L Carbon Dioxide 32 H Anion Gap 17 BUN 19 H Creatinine 0.6 L Est GFR ( Amer) > 60 Est GFR (Non-Af Amer) > 60 Random Glucose 174 H Calcium 9.0 Total Bilirubin AST ALT Alkaline Phosphatase Troponin I NT-Pro-B Natriuret Pep Total Protein Albumin Globulin Albumin/Globulin Ratio Vitamin B12 Folate TSH 3rd Generation Urine Color Urine Clarity Urine pH Ur Specific [place] Urine Protein Urine Glucose (UA) Urine Ketones Urine Blood Urine Nitrate Urine Bilirubin Urine Urobilinogen Ur Leukocyte Esterase Urine RBC (Auto) Urine Microscopic WBC Ur Squamous Epith Cells Urine Bacteria Influenza Typ A,B (EIA) Assessment & Plan (1) Dyspnea and respiratory abnormalities Status: Acute Comment: CT chest reviewed. Will request V/Q scan of the lungs. Will need pulmonary function study. Awaiting ENT evaluation. - Date & Time Date: 09/02/17 Time: 11:08
--- NOTE | 2017-09-02 11:19 | CP.PCM.PN ---
Subjective - Date & Time of Evaluation Date of Evaluation: 09/02/17 Time of Evaluation: 11:23 - Subjective Subjective: Patient not able to swallow, still c/o SOB, dry mouth, arthalgia. Will start Vancomycin for otomastoiditis. The clinical picture could be related to Sjogren Syndrome with complication of enlargement of parotid and otomastoiditis and interstitial lung diseases with exacerbation of COPD. Will keep the patient NPO. Continue steroid iv and iv antibx. Will follow ENT, pulmonary and will follow rheumatologic w/u. Objective - Vital Signs/Intake and Output Vital Signs (last 24 hours): Temp Pulse Resp BP Pulse Ox 99.4 F 85 18 130/65 95 09/02/17 08:09 09/02/17 08:52 09/02/17 08:09 09/02/17 08:52 09/02/17 08:09 Intake and Output: 09/01/17 09/02/17 23:59 11:59 Intake Total 75 Balance 75 - Medications Medications: Current Medications Albuterol/Ipratropium (Duoneb 3 Mg/0.5 Mg (3 Ml) Ud) 3 ml INH RQ6 PRN PRN Reason: Shortness of Breath Last Admin: 09/02/17 07:34 Dose: 3 ml Calcium Carbonate (Oscal) 500 mg PO DAILY [facility] Last Admin: 09/02/17 09:58 Dose: 500 mg Enoxaparin Sodium (Lovenox) 40 mg SC DAILY [facility] PRN Reason: Protocol Last Admin: 09/02/17 09:58 Dose: 40 mg Escitalopram Oxalate (Lexapro) 20 mg PO DAILY [facility] Last Admin: 09/02/17 09:58 Dose: 20 mg Azithromycin 500 mg/ Sodium (Chloride) 250 mls @ 250 mls/hr IVPB DAILY [facility] PRN Reason: Protocol Sodium Chloride (Sodium Chloride 0.9%) 1,000 mls @ 75 mls/hr IV .[id number] [facility] Stop: 09/02/17 15:45 Last Admin: 09/02/17 10:06 Dose: 75 mls/hr Methylprednisolone (Solu-Medrol) 60 mg IVP Q8 [facility] Last Admin: 09/02/17 09:53 Dose: 60 mg Pantoprazole Sodium (Protonix Inj) 40 mg IVP DAILY [facility] Last Admin: 09/02/17 09:58 Dose: 40 mg - Labs Labs: 09/02/17 08:30 09/02/17 08:30 PT 12.9 Seconds (9.8-13.1) 09/01/17 13:50 INR 1.2 (0.9-1.2) 09/01/17 13:50 APTT 30.0 Seconds (25.6-37.1) 09/01/17 13:50 - Constitutional Appears: In Acute Distress - Head Exam Head Exam: ATRAUMATIC, NORMAL INSPECTION, NORMOCEPHALIC - Eye Exam Additional comments: dry - ENT Exam ENT Exam: Mucous Membranes Dry - Neck Exam Neck Exam: Full ROM - Respiratory Exam Respiratory Exam: Decreased Breath Sounds, Wheezes - Cardiovascular Exam Cardiovascular Exam: REGULAR RHYTHM, +S1, +S2 - GI/Abdominal Exam GI & Abdominal Exam: Soft, Normal Bowel Sounds - Extremities Exam Extremities Exam: Normal Inspection - Neurological Exam Neurological Exam: Alert, Awake, Oriented x3 - Psychiatric Exam Psychiatric exam: Anxious - Skin Skin Exam: Normal Color Assessment and Plan (1) GERD (gastroesophageal reflux disease) Status: Chronic (2) Stridor Status: Suspected (3) COPD (chronic obstructive pulmonary disease) Status: Chronic (4) Cough Status: Acute (5) CAD (coronary artery disease) Status: Chronic (6) Obesity (BMI 30-39.9) Status: Chronic (7) Depression Status: Chronic (8) Dyspnea and respiratory abnormalities Status: Acute (9) Mastoiditis Status: Acute (10) Dysphagia Status: Acute (11) Sjoegren syndrome Status: Suspected (12) Exacerbation of asthma Status: Acute (13) Parotid gland enlargement Status: Acute - Assessment and Plan (Free Text) Plan: As above.
--- NOTE | 2017-09-02 11:45 | RAD ---
HISTORY: SOB, exc of COPD, possible pneumonia COMPARISON: Comparison made with chest radiograph 09/01/2017 TECHNIQUE: Chest PA and lateral study is limited due to motion artifact. FINDINGS: LUNGS: Mild left basilar atelectasis PLEURA: No significant pleural effusion identified. No pneumothorax apparent. CARDIOVASCULAR: Normal. OSSEOUS STRUCTURES: . Mild multilevel degenerative spondylosis of the thoracic spine chronic anterior wedge deformities of several of upper/mid thoracic segments VISUALIZED UPPER ABDOMEN: Normal. OTHER FINDINGS: None. IMPRESSION: Limited motion degraded study. Mild left basilar atelectasis felt be present
[2017-09-02] MEDS: Dextrose 5%/0.9% NS 1,000 ML IV SCH (12:04)
--- NOTE | 2017-09-02 12:07 | CP.PCM.CON ---
History of Present Illness - History of Present Illness History of Present Illness: pt with otomastoidits iv rx in progress Past Patient History - Infectious Disease Hx of Infectious Diseases: None - Past Medical History & Family History Past Medical History?: Yes - Past Social History Smoking Status: Former Smoker - CARDIAC Hx Cardiac Disorders: Yes Hx Hypercholesterolemia: Yes Hx Hypertension: Yes - PULMONARY Hx Respiratory Disorders: Yes Hx Pneumonia: Yes - NEUROLOGICAL Hx Neurological Disorder: No - HEENT Hx HEENT Problems: No - RENAL Hx Chronic Kidney Disease: No - ENDOCRINE/METABOLIC Hx Endocrine Disorders: No - HEMATOLOGICAL/ONCOLOGICAL Hx Blood Disorders: No Hx AIDS: No Hx Human Immunodeficiency Virus (HIV): No - INTEGUMENTARY Hx Dermatological Problems: No - MUSCULOSKELETAL/RHEUMATOLOGICAL Hx Musculoskeletal Disorders: Yes Hx Arthritis: Yes Hx Falls: No - GASTROINTESTINAL Hx Gastrointestinal Disorders: No - GENITOURINARY/GYNECOLOGICAL Hx Genitourinary Disorders: No - PSYCHIATRIC Hx Psychophysiologic Disorder: Yes Hx Substance Use: No - SURGICAL HISTORY Hx Surgeries: Yes Hx Section: Yes Hx Coronary Stent: Yes - ANESTHESIA Hx Anesthesia: Yes Hx Anesthesia Reactions: No Hx Malignant Hyperthermia: No Has any member of the family had a problem w/ anesthesia?: No Meds Allergies/Adverse Reactions: Allergies Allergy/AdvReac Type Severity Reaction Status Date / Time No Known Allergies Allergy Verified 06/27/17 18:19 - Medications Medications: Current Medications Albuterol/Ipratropium (Duoneb 3 Mg/0.5 Mg (3 Ml) Ud) 3 ml INH RQ6 PRN PRN Reason: Shortness of Breath Last Admin: 09/02/17 07:34 Dose: 3 ml Calcium Carbonate (Oscal) 500 mg PO DAILY [facility] Last Admin: 09/02/17 09:58 Dose: 500 mg Enoxaparin Sodium (Lovenox) 40 mg SC DAILY [facility] PRN Reason: Protocol Last Admin: 09/02/17 09:58 Dose: 40 mg Escitalopram Oxalate (Lexapro) 20 mg PO DAILY [facility] Last Admin: 09/02/17 09:58 Dose: 20 mg Sodium Chloride (Sodium Chloride 0.9%) 1,000 mls @ 75 mls/hr IV .[id number] [facility] Stop: 09/02/17 15:45 Last Admin: 09/02/17 10:06 Dose: 75 mls/hr Vancomycin HCl 1 gm/ Sodium (Chloride) 250 mls @ 166.667 mls/hr IVPB DAILY [facility] PRN Reason: Protocol Dextrose/Sodium Chloride (Dextrose 5%/0.9% Ns 1000 Ml) 1,000 mls @ 85 mls/hr IV .[id number] [facility] Stop: 09/03/17 11:26 Last Admin: 09/02/17 12:04 Dose: 85 mls/hr Ceftriaxone Sodium 2 gm/ (Sodium Chloride) 100 mls @ 100 mls/hr IVPB DAILY [facility] PRN Reason: Protocol Methylprednisolone (Solu-Medrol) 60 mg IVP Q8 [facility] Last Admin: 09/02/17 09:53 Dose: 60 mg Pantoprazole Sodium (Protonix Inj) 40 mg IVP DAILY [facility] Last Admin: 09/02/17 09:58 Dose: 40 mg Results - Vital Signs Recent Vital Signs: Last Vital Signs Temp 99.4 F 09/02/17 08:09 Pulse 85 09/02/17 08:52 Resp 18 09/02/17 08:09 BP 130/65 09/02/17 08:52 Pulse Ox 95 09/02/17 08:09 - Labs Result Diagrams: 09/02/17 08:30 09/02/17 08:30 Labs: Laboratory Results - last 24 hr 09/01/17 09/01/17 09/01/17 00:25 12:10 13:50 WBC RBC Hgb Hct MCV MCH MCHC RDW Plt Count MPV Neut % (Auto) Lymph % (Auto) Cache % (Auto) Eos % (Auto) Baso % (Auto) Neut # (Auto) Lymph # (Auto) Cache # (Auto) Eos # (Auto) Baso # (Auto) PT 12.9 INR 1.2 APTT 30.0 D-Dimer, Quantitative Sodium Potassium Chloride Carbon Dioxide Anion Gap BUN Creatinine Est GFR ( Amer) Est GFR (Non-Af Amer) Random Glucose Calcium Troponin I < 0.0120 < 0.0120 NT-Pro-B Natriuret Pep 122 Vitamin B12 Folate TSH 3rd Generation Urine Color Urine Clarity Urine pH Ur Specific [place] Urine Protein Urine Glucose (UA) Urine Ketones Urine Blood Urine Nitrate Urine Bilirubin Urine Urobilinogen Ur Leukocyte Esterase Urine RBC (Auto) Urine Microscopic WBC Ur Squamous Epith Cells Urine Bacteria 09/01/17 09/01/17 09/01/17 14:50 16:12 16:16 WBC RBC Hgb Hct MCV MCH MCHC RDW Plt Count MPV Neut % (Auto) Lymph % (Auto) Cache % (Auto) Eos % (Auto) Baso % (Auto) Neut # (Auto) Lymph # (Auto) Cache # (Auto) Eos # (Auto) Baso # (Auto) PT INR APTT D-Dimer, Quantitative 296 H Sodium Potassium Chloride Carbon Dioxide Anion Gap BUN Creatinine Est GFR ( Amer) Est GFR (Non-Af Amer) Random Glucose Calcium Troponin I < 0.0120 NT-Pro-B Natriuret Pep Vitamin B12 467 Folate 17.5 TSH 3rd Generation 0.58 Urine Color Yellow Urine Clarity Cloudy Urine pH 6.0 Ur Specific [place] 1.016 Urine Protein Negative Urine Glucose (UA) Neg Urine Ketones Trace Urine Blood Small Urine Nitrate Negative Urine Bilirubin Negative Urine Urobilinogen 0.2-1.0 Ur Leukocyte Esterase Neg Urine RBC (Auto) 11 H Urine Microscopic WBC < 1 Ur Squamous Epith Cells 6 H Urine Bacteria Rare 09/02/17 09/02/17 08:30 08:30 WBC 12.1 H RBC 4.99 Hgb 13.7 Hct 41.3 MCV 82.7 MCH 27.5 MCHC 33.3 RDW 15.6 H Plt Count 238 MPV 7.9 Neut % (Auto) 72.1 Lymph % (Auto) 24.3 Cache % (Auto) 3.4 Eos % (Auto) 0.0 Baso % (Auto) 0.2 Neut # (Auto) 8.7 H Lymph # (Auto) 2.9 Cache # (Auto) 0.4 Eos # (Auto) 0.0 Baso # (Auto) 0.0 PT INR APTT D-Dimer, Quantitative Sodium 138 Potassium 3.6 Chloride 93 L Carbon Dioxide 32 H Anion Gap 17 BUN 19 H Creatinine 0.6 L Est GFR ( Amer) > 60 Est GFR (Non-Af Amer) > 60 Random Glucose 174 H Calcium 9.0 Troponin I NT-Pro-B Natriuret Pep Vitamin B12 Folate TSH 3rd Generation Urine Color Urine Clarity Urine pH Ur Specific [place] Urine Protein Urine Glucose (UA) Urine Ketones Urine Blood Urine Nitrate Urine Bilirubin Urine Urobilinogen Ur Leukocyte Esterase Urine RBC (Auto) Urine Microscopic WBC Ur Squamous Epith Cells Urine Bacteria
--- NOTE | 2017-09-02 12:26 | CARD ---
APPROVED REPORT EXAM: Two-dimensional and M-mode echocardiogram with Doppler and color Doppler. Other Information Quality : AverageRhythm : NSR INDICATION Chest Pain 2D DIMENSIONS IVSd0.89 (0.7-1.1cm)LVDd3.87 (3.9-5.9cm) PWd0.85 (0.7-1.1cm)IVSs1.40 (0.8-1.2cm) LVDs1.65 (2.5-4.0cm)FS (%) 57.5 % PWs1.26 (0.8-1.2cm) M-Mode DIMENSIONS Left Atrium (MM)3.78 (2.5-4.0cm)Aortic Root3.19 (2.2-3.7cm) Aortic Cusp Exc.2.00 (1.5-2.0cm) Mitral Valve MV E Iftaroom648.0cm/sMV DECEL [id number] A Jvdpbaef623.7cm/s MV KZI97ypR/A ratio0.8MVA (PHT)3.49cm2 TDI Lateral E' Peak V9.13cm/sMedial E' Peak V6.52cm/sE/Lateral E'11.0 E/Medial E'15.3 Tricuspid Valve TR Peak Yuipehyr611ib/sRAP [id number] Peak Gr.12mmHg [id number] LEFT VENTRICLE The left ventricle is normal size. There is normal left ventricular wall thickness. The left ventricular function is normal. The left ventricular ejection fraction is within the normal range. The Ejection Fraction is 50-55%. . There is normal LV segmental wall motion. The left ventricular diastolic function is normal. RIGHT VENTRICLE The right ventricle is normal size. There is normal right ventricular wall thickness. The right ventricular systolic function is normal. ATRIA The left atrium size is normal. The right atrium size is normal. AORTIC VALVE The aortic valve is normal in structure. No aortic regurgitation is present. There is no aortic valvular stenosis. MITRAL VALVE The mitral valve is normal in structure. There is no mitral valve stenosis. There is no mitral valve regurgitation noted. TRICUSPID VALVE The tricuspid valve is normal in structure. There is no tricuspid valve regurgitation noted. There is no tricuspid valve stenosis. PULMONIC VALVE The pulmonary valve is normal in structure. There is no pulmonic valvular regurgitation. GREAT VESSELS The aortic root is normal in size. The IVC is normal in size and collapses >50% with inspiration. PERICARDIAL EFFUSION The pericardium appears normal. <Conclusion> Extremely poor echo The left ventricle is normal size. The left ventricular function is normal. The left ventricular ejection fraction is within the normal range. The Ejection Fraction is 50-55%. .
[2017-09-02] MEDS ORDERED: Albuterol-Ipratrop 3 mg / 0.5 (3 ml) UD ONE (16:47)
--- NOTE | 2017-09-02 17:00 | PCM.RRT ---
<Thanh Juaresmaddison - Last Filed: 09/02/17 18:21> BROADBAND ENGINEER Nurse Assessment - Situation BROADBAND ENGINEER Responder Arrival Time: 16:44 Location: Nuclear Scan BROADBAND ENGINEER Reason for Call: Respiratory Distress - IV IV Inserted during BROADBAND ENGINEER?: No - Respiratory Oxygen Delivery Method: Room Air Received Nebulizer Treatments: Yes Was the Patient Ventilated with Bag/Mask 100% O2?: No Secretions Suctioned?: No Was the Patient Intubated?: No Was the Patient Placed on a Ventilator?: No - Medication Medications Administered During BROADBAND ENGINEER: -Duoneb inhal. -Benadryl 25 mg PO. - Solumedrol 60 mg IV - Vital Signs Vital Signs: BP: 141/66 HR: 87 O2 Sat 95 RR: 22 - Talha Coma Scale Coma Scale Eye Opening: Spontaneous Coma Scale Motor: Obeys Commands Movement Coma Scale Verbal: Oriented Coma Scale Total: 15 I.Reason for BROADBAND ENGINEER - A) Acute Change in Patient: Subjective: BROADBAND ENGINEER was called for a 72 yo, f, PMhx/o HTN, GERD, Depression, Morbid Obesity who was admitted for PNA, sev sepsis. Patient had finished V/Q willis study 15 min ago and was waiting in the raphael to be transferred to floor when nursed noted patient in respiratory distress. On arrival response patient awake, alert, oriented, anxious in mild respiratory distress, able to speak in full sentences. Patient denies chest pain, palpitation, n,v,abd pain. Initial VS normal, O2 sat 95 - Neurological Status (Select all that apply): Alert, Responsive, Oriented, Verbal, Follows Commands - Constitutional Appears: In Acute Distress - Head Head Exam: ATRAUMATIC, NORMOCEPHALIC - Eyes Eye Exam: Normal appearance - Respiratory Exam Respiratory Exam: Rales, Wheezes (b/l on expiration, inspiratory rales) - Cardiovascular Exam Cardiovascular Exam: REGULAR RHYTHM, +S1, +S2. absent: Murmur - GI/Abdominal Exam GI & Abdominal Exam: Soft. absent: Tenderness - Neurological Exam Neurological Exam: Alert, Awake, Oriented x3 - Extremities Exam Extremities Exam: Normal Inspection. absent: Pedal Edema, Tenderness Plan - Assessment of Findings&Treatment Plan Assessment 1) SOB secondary to Acute Bronchitis vs PNA Plan -Duoneb -Benadryl 25 mg PO -Solumedrol 60 mg IV -reevaluate <Cesar Perera III - Last Filed: 09/05/17 12:56> Plan - Assessment of Findings&Treatment Plan patient seen on BROADBAND ENGINEER w resident and team. was transferred back to floor for further testing and treatment after overall stability ascertained.
[2017-09-02] MEDS ORDERED: Albuterol-Ipratrop 3 mg / 0.5 (3 ml) UD INH STA (17:01)
[2017-09-02] MEDS ORDERED: methylPREDNISolone 60 MG in Sodium Chloride 0.9% 50 ML IVPB STA (17:05)
[2017-09-02] MEDS ORDERED: MethylPREDNISolone 40 mg Vial IVP ONE (17:15)
--- NOTE | 2017-09-02 17:30 | NM ---
COMPARISON: September 02, 2017. Single-view chest September 01, 2017. CT thorax for pulmonary embolism TECHNIQUE: 41.2 mCi technetium 99-m DTPA aerosol. 5.98 mCI technetium 99-m MAA administered intravenously. FINDINGS: VENTILATION COMPONENT: Heterogeneous ventilation Retention of radionuclide in the tracheobronchial tree and ingestion of radionuclide in the stomach, incidental findings PERFUSION COMPONENT: Heterogeneous distribution of radionuclide. No geographic, segmental, lobar abnormalities apparent on the present examination. IMPRESSION: Low probability ventilation perfusion scan for pulmonary embolism.
--- NOTE | 2017-09-02 19:16 | CP.PCM.PN ---
Subjective - Date & Time of Evaluation Date of Evaluation: 09/02/17 Time of Evaluation: 19:06 - Subjective Subjective: see below Objective - Vital Signs/Intake and Output Vital Signs (last 24 hours): Temp Pulse Resp BP Pulse Ox 98.7 F 109 H 20 124/67 92 L 09/02/17 17:31 09/02/17 17:31 09/02/17 17:31 09/02/17 17:31 09/02/17 17:31 - Medications Medications: Current Medications Albuterol/Ipratropium (Duoneb 3 Mg/0.5 Mg (3 Ml) Ud) 3 ml INH RQ6 PRN PRN Reason: Shortness of Breath Last Admin: 09/02/17 07:34 Dose: 3 ml Calcium Carbonate (Oscal) 500 mg PO DAILY [facility] Last Admin: 09/02/17 09:58 Dose: 500 mg Enoxaparin Sodium (Lovenox) 40 mg SC DAILY [facility] PRN Reason: Protocol Last Admin: 09/02/17 09:58 Dose: 40 mg Escitalopram Oxalate (Lexapro) 20 mg PO DAILY [facility] Last Admin: 09/02/17 09:58 Dose: 20 mg Vancomycin HCl 1 gm/ Sodium (Chloride) 250 mls @ 166.667 mls/hr IVPB DAILY [facility] PRN Reason: Protocol Last Admin: 09/02/17 15:16 Dose: 166.667 mls/hr Dextrose/Sodium Chloride (Dextrose 5%/0.9% Ns 1000 Ml) 1,000 mls @ 85 mls/hr IV .[id number] [facility] Stop: 09/03/17 11:26 Last Admin: 09/02/17 12:04 Dose: 85 mls/hr Ceftriaxone Sodium 2 gm/ (Sodium Chloride) 100 mls @ 100 mls/hr IVPB DAILY [facility] PRN Reason: Protocol Methylprednisolone (Solu-Medrol) 60 mg IVP Q8 [facility] Last Admin: 09/02/17 17:42 Dose: 60 mg Pantoprazole Sodium (Protonix Inj) 40 mg IVP DAILY [facility] Last Admin: 09/02/17 09:58 Dose: 40 mg - Labs Labs: 09/02/17 08:30 09/02/17 08:30 PT 12.9 Seconds (9.8-13.1) 09/01/17 13:50 INR 1.2 (0.9-1.2) 09/01/17 13:50 APTT 30.0 Seconds (25.6-37.1) 09/01/17 13:50 Assessment and Plan - Assessment and Plan (Free Text) Assessment: ENT Consult Note Chief Complaint voice changes History Present Illness 72 y/o female admitted with several days of feeling sick with cough, SOB and generalized malaise. She notes that she had throat pain and headaches several days ago, but feels better now. She had a CT neck yesterday, which showed "otomastoiditis." It was otherwise unremarkable. She notes having a rough voice associated with dysphagia for the past week or so. No ear pain currently. She wears a heairng aid in the left ear. Allergies NKDA Past Medical Hx HTN GERD ROS see HPI Exam awake, alert, comfortable no stridor voice raspy but strong neck soft, no tenderness, no masses, trachea midline oc/op clear, no palate swelling or asymmetry nose clear face symmetric, non-tender Right ear canal clear; there is wax on the TM which partially obscures it, but i see no overt infection Left ear canal clear; there is wax on the TM which partially obscures it, but i see no overt infection no mastoid swelling or tenderness Procedure: fiberoptic laryngoscopy 39217. Indication: hoarseness, dysphagia Nose anesthetized with topical Lidocaine 4% spray. Flexible fiberoptic scope was then passes through the nose and back to the nasopharynx and down through the oropharynx and into the hypopharynx. There is thick mucus in both nasal cavities and also the nasopharynx. The tongue base is normal. The vallecula is clear. There are no masses or lesions. The epiglottis is normal without swelling. B/L vocal cord motion is symmetric and intact; there are no vocal cord masses or lesions. There is no laryngeal swelling. The scope was removed. There were no complications. The patient tolerated the procedure well. CT reviewed: the mastoids are sclerotic b/l, but the middle ears are aerated. Impression URI with hoarseness and possible middle ear/mastoid fluid on imaging, but no evidence of acute mastoiditis. would consider changing abx to Unasyn if ok with ID no laryngeal swelling or other abnormalities to account for SOB or noisy breathing o/p f/u with me to re-scope if hoarseness persists, and also to further evaluate the ear findings on exam and recent CT
[2017-09-03] MEDS: Dextrose 5%/0.9% NS 1,000 ML IV SCH (00:36)
[2017-09-03] MEDS: Albuterol-Ipratrop 3 mg / 0.5 (3 ml) UD INH PRN (02:51)
[2017-09-03] MEDS ORDERED: cefTRIAXone 2 GM in Sodium Chloride 0.9% 100 ML IVPB SCH (09:00)
[2017-09-03] MEDS: Enoxaparin 40 mg Syringe SC SCH (09:27)
--- NOTE | 2017-09-03 11:13 | CP.PCM.PN ---
Subjective - Date & Time of Evaluation Date of Evaluation: 09/03/17 Time of Evaluation: 11:08 - Subjective Subjective: Seen on rounds in telemetry. Seated in bedside chair. Patient appears comfortable and states she feels improved today. Still complains of discomfort on the left side of her throat. Seen by ENT and bedside endoscopy performed yesterday. CT scan reviewed and significant thickening of the bronchial zavala was noted throughout the lower lobes bilaterally. She is a former cigarette smoker and an element of chronic bronchitis may be present. 1+ dependent edema is noted in both lower extremities. No cyanosis. No palpable lymphadenopathy. Neck is supple and trachea midline. No dullness on chest percussion. Breath sounds are somewhat diminished bilaterally without audible wheezing. No bronchial breathing or egophony. Rare dry basilar rales are heard posteriorly. Occasional sonorous rhonchi are heard in dependent regions of both lungs. Echocardiogram shows normal functioning left ventricle but poor echo window suggesting possible pulmonary overinflation. Patient has ABG requested yesterday which has not been drawn. There is suggestion of possible CO2 retention and the ABG is necessary. Steroid dose will be reduced to every 12 hours and again tomorrow as well. Pulmonary function studies are necessary. Aerosol therapy with DuoNeb 4 times daily. Objective - Vital Signs/Intake and Output Vital Signs (last 24 hours): Temp Pulse Resp BP Pulse Ox 98.4 F 74 20 121/67 93 L 09/03/17 08:28 09/03/17 08:28 09/03/17 08:28 09/03/17 08:28 09/03/17 08:28 - Medications Medications: Current Medications Albuterol Sulfate (Albuterol 0.083% Inhal [place]ira (2.5 Mg/3 Ml) Ud) 2.5 mg INH RQ4 PRN PRN Reason: Shortness of Breath Albuterol/Ipratropium (Duoneb 3 Mg/0.5 Mg (3 Ml) Ud) 3 ml INH RQID [facility] Calcium Carbonate (Oscal) 500 mg PO DAILY [facility] Last Admin: 09/03/17 09:27 Dose: 500 mg Enoxaparin Sodium (Lovenox) 40 mg SC DAILY [facility] PRN Reason: Protocol Last Admin: 09/03/17 09:27 Dose: 40 mg Escitalopram Oxalate (Lexapro) 20 mg PO DAILY [facility] Last Admin: 09/03/17 09:27 Dose: 20 mg Vancomycin HCl 1 gm/ Sodium (Chloride) 250 mls @ 166.667 mls/hr IVPB DAILY [facility] PRN Reason: Protocol Last Admin: 09/03/17 10:03 Dose: 166.667 mls/hr Dextrose/Sodium Chloride (Dextrose 5%/0.9% Ns 1000 Ml) 1,000 mls @ 85 mls/hr IV .[id number] [facility] Stop: 09/03/17 11:26 Last Admin: 09/03/17 00:36 Dose: 85 mls/hr Ceftriaxone Sodium 2 gm/ (Sodium Chloride) 100 mls @ 100 mls/hr IVPB DAILY [facility] PRN Reason: Protocol Last Admin: 09/03/17 09:30 Dose: 100 mls/hr Methylprednisolone (Solu-Medrol) 60 mg IVP Q12 [facility] Pantoprazole Sodium (Protonix Inj) 40 mg IVP DAILY [facility] Last Admin: 09/03/17 09:28 Dose: 40 mg - Labs Labs: 09/02/17 08:30 09/02/17 08:30 PT 12.9 Seconds (9.8-13.1) 09/01/17 13:50 INR 1.2 (0.9-1.2) 09/01/17 13:50 APTT 30.0 Seconds (25.6-37.1) 09/01/17 13:50 Assessment and Plan (1) Dyspnea and respiratory abnormalities Status: Acute
--- NOTE | 2017-09-03 11:14 | CP.PCM.CON ---
History of Present Illness - History of Present Illness History of Present Illness: 72 y/o female admitted with several days of feeling sick with cough, SOB and generalized malaise. She notes that she had throat pain and headaches several days ago, but feels better now. She had a CT neck yesterday, which showed "otomastoiditis." It was otherwise unremarkable. She notes having a rough voice associated with dysphagia for the past week or so. No ear pain currently. She wears a heairng aid in the left ear. Allergies NKDA Past Medical Hx HTN GERD ROS see HPI Review of Systems - Constitutional Constitutional: As Per HPI - EENT Eyes: absent: As Per HPI, Blind Spots, Blurred Vision, Change in Vision, Decreased Night Vision, Diplopia, Discharge, Dry Eye, Exophthalmos, Floaters, Irritation, Itchy Eyes, Loss of Peripheral Vision, Pain, Photophobia, Requires Corrective Lenses, Sees Flashes, Spots in Vision, Tunnel Vision, Other Visual Disturbances, Loss of Vision, Other Ears: As Per HPI, Decreased Hearing. absent: Ear Discharge, Dizziness Nose/Mouth/Throat: As Per HPI - Breasts Breasts: absent: As Per HPI, Change in Shape, Mass, Pain, Nipple Discharge, Nipple Inversion, Skin Changes, Swelling, Other - Cardiovascular Cardiovascular: absent: As Per HPI, Acrocyanosis, Chest Pain, Chest Pain at Rest , Chest Pain with Activity, Claudication, Diaphoresis, Dyspnea, Dyspnea on Exertion, Edema, Irregular Heart Rhythm, Pain Radiating to Arm/Neck/Jaw, Leg Edema, Leg Ulcers, Lightheadedness, Orthopnea, Palpitations, Paroxysmal Nocturnal Dyspnea, Pedal Edema, Radiating Pain, Rapid Heart Rate, Slow Heart Rate, Syncope, Other - Respiratory Respiratory: As Per HPI, Cough, Dyspnea. absent: Hemoptysis - Gastrointestinal Gastrointestinal: absent: As Per HPI, Abdominal Pain, Belching, Bloating, Change in Bowel Habits, Change in Stool Character, Coffee Ground Emesis, Constipation, Cramping, Diarrhea, Dyspepsia, Dysphagia, Early Satiety, Excessive Flatus, Fecal Incontinence, Heartburn, Hematemesis, Hematochezia, Loose Stools, Melena, Nausea, Odynophagia, Temesmus, Vomiting, Other - Genitourinary Genitourinary: absent: As Per HPI, Change in Urinary Stream, Difficulty Urinating, Dysuria, Flank Pain, Hematuria, Pyuria, Nocturia, Urinary Incontinence, Urinary Frequency, Urinary Hesitance, Urinary Urgency, Voiding Freq/Small Amts, Freq UTI, Hx Renal/Bladder Calculi, Hx /Renal Surgery, Bladder Distension, Other - Reproductive: Female Reproductive:Female: absent: As Per HPI, Amenorrhea, Amenorrhea/ Control, Currently Menstual, Cycle <21 Days, Cycle >35 Days, Cycle Variable, Menses 1-7 Days, Menses >/= 8 Days, Menses Variable, Cycle > 4 Weeks Between, No Menses for 6 Months, Heavy Menses, Light Menses, Normal Menses, Spotting Between Cycles , S/P Hysterectomy, Menopausal, Post Menopausal, Premenarche, Abnormal Vaginal Bleeding, Dysmenorrhea, Dyspareunia, Genital Lesions, Genital Pruritis, Pelvic Pain, Prolapse Symptoms, Sexual Dysfunction, Vaginal Discharge, Vaginal Dryness , Vaginal Odor, Vaginal Pruritis, Other - Menstruation Menstruation: absent: As Per HPI, Amenorrhea, Amenorrhea/ Control, Currently Menstual, Cycle <21 Days, Cycle >35 Days, Cycle Variable, Menses 1-7 Days, Menses >/= 8 Days, Menses Variable, Cycle > 4 Weeks Between, No Menses for 6 Months, Heavy Menses, Light Menses, Normal Menses, Spotting Between Cycles , S/P Hysterectomy, Menopausal, Post Menopausal, Premenarche, Abnormal Vaginal Bleeding, Dysmenorrhea, Other - Musculoskeletal Musculoskeletal: absent: As Per HPI, Abnormal Gait, Arthralgias, Atrophy, Back Pain, Deformity, Joint Swelling, Limited Range of Motion, Loss of Height, Muscle Cramps, Muscle Weakness, Myalgias, Neck Pain, Numbness, Radiating Pain into Limb, Stiffness, Tingling, Other - Integumentary Integumentary: absent: As Per HPI, Acne, Alopecia, Bleeding Lesions, Change in Hair, Change in Nails, Change in Pigmentation, Changing Lesions, Dry Skin, Erythema, Furuncle, Hirsutism, Lesions, New Lesions, Non-Healing Lesions, Photosensitivity, Pruritus, Rash, Skin Pain, Skin Ulcer, Sores, Striae, Swelling , Unusual Bruising, Wounds, Jaundice, Other - Neurological Neurological: absent: As Per HPI, Abnormal Gait, Abnormal Hearing, Abnormal Movements, Abnormal Speech, Behavioral Changes, Burning Sensations, Confusion, Convulsions, Disequilibrium, Dizziness, Numbness, Focal Weakness, Frequent Falls , Headaches, Lack of Coordination, Loss of Vision, Memory Loss, Paresthesias, Radicular Pain, Restless Legs, Sensory Deficit, Syncope, Tingling, Tremor, Vertigo, Weakness, Other Visual Disturbances, Other - Psychiatric Psychiatric: absent: As Per HPI, Abnormal Sleep Pattern, Anhedonia, Anxiety, Auditory Hallucinations, Behavioral Changes, Change in Appetite, Change in Libido, Confusion, Depression, Difficulty Concentrating, Hallucinations, Homicidal Ideation, Hopelessness, Irritability, Memory Loss, Mood Swings, Panic Attacks, Paranoia, Suicidal Ideation, Visual Hallucinations, Tactile Hallucinations, Other - Endocrine Endocrine: absent: As Per HPI, Change in Body Appearance, Change in Libido, Cold Intolorance, Deepening of Voice, Excessive Sweating, Fatigue, Flushing, Heat Intolorance, Increase in Ring/Shoe/Hat Size, Palpitations, Polydipsia, Polyphagia, Polyuria, Other - Hematologic/Lymphatic Hematologic: absent: As Per HPI, Easy Bleeding, Easy Bruising, Lymphadenopathy, Other Past Patient History - Infectious Disease Hx of Infectious Diseases: None - Past Medical History & Family History Past Medical History?: Yes - Past Social History Smoking Status: Former Smoker - CARDIAC Hx Cardiac Disorders: Yes Hx Hypercholesterolemia: Yes Hx Hypertension: Yes - PULMONARY Hx Respiratory Disorders: Yes Hx Pneumonia: Yes - NEUROLOGICAL Hx Neurological Disorder: No - HEENT Hx HEENT Problems: No - RENAL Hx Chronic Kidney Disease: No - ENDOCRINE/METABOLIC Hx Endocrine Disorders: No - HEMATOLOGICAL/ONCOLOGICAL Hx Blood Disorders: No Hx AIDS: No Hx Human Immunodeficiency Virus (HIV): No - INTEGUMENTARY Hx Dermatological Problems: No - MUSCULOSKELETAL/RHEUMATOLOGICAL Hx Musculoskeletal Disorders: Yes Hx Arthritis: Yes Hx Falls: No - GASTROINTESTINAL Hx Gastrointestinal Disorders: No - GENITOURINARY/GYNECOLOGICAL Hx Genitourinary Disorders: No - PSYCHIATRIC Hx Psychophysiologic Disorder: Yes Hx Substance Use: No - SURGICAL HISTORY Hx Surgeries: Yes Hx Section: Yes Hx Coronary Stent: Yes - ANESTHESIA Hx Anesthesia: Yes Hx Anesthesia Reactions: No Hx Malignant Hyperthermia: No Has any member of the family had a problem w/ anesthesia?: No Meds Allergies/Adverse Reactions: Allergies Allergy/AdvReac Type Severity Reaction Status Date / Time No Known Allergies Allergy Verified 06/27/17 18:19 - Medications Medications: Current Medications Albuterol Sulfate (Albuterol 0.083% Inhal Yanira (2.5 Mg/3 Ml) Ud) 2.5 mg INH RQ4 PRN PRN Reason: Shortness of Breath Albuterol/Ipratropium (Duoneb 3 Mg/0.5 Mg (3 Ml) Ud) 3 ml INH RQID [facility] Calcium Carbonate (Oscal) 500 mg PO DAILY [facility] Last Admin: 09/03/17 09:27 Dose: 500 mg Enoxaparin Sodium (Lovenox) 40 mg SC DAILY [facility] PRN Reason: Protocol Last Admin: 09/03/17 09:27 Dose: 40 mg Escitalopram Oxalate (Lexapro) 20 mg PO DAILY [facility] Last Admin: 09/03/17 09:27 Dose: 20 mg Vancomycin HCl 1 gm/ Sodium (Chloride) 250 mls @ 166.667 mls/hr IVPB DAILY [facility] PRN Reason: Protocol Last Admin: 09/03/17 10:03 Dose: 166.667 mls/hr Dextrose/Sodium Chloride (Dextrose 5%/0.9% Ns 1000 Ml) 1,000 mls @ 85 mls/hr IV .[id number] [facility] Stop: 09/03/17 11:26 Last Admin: 09/03/17 00:36 Dose: 85 mls/hr Ceftriaxone Sodium 2 gm/ (Sodium Chloride) 100 mls @ 100 mls/hr IVPB DAILY [facility] PRN Reason: Protocol Last Admin: 09/03/17 09:30 Dose: 100 mls/hr Methylprednisolone (Solu-Medrol) 60 mg IVP Q12 [facility] Pantoprazole Sodium (Protonix Inj) 40 mg IVP DAILY [facility] Last Admin: 09/03/17 09:28 Dose: 40 mg Physical Exam - Constitutional Appears: Non-toxic, Chronically Ill - Head Exam Head Exam: NORMOCEPHALIC - Eye Exam Eye Exam: PERRL. absent: Scleral icterus Pupil Exam: NORMAL ACCOMODATION - ENT Exam ENT Exam: Mucous Membranes Dry, Mucous Membranes Moist, Normal External Ear Exam. absent: Normal Exam, TM's Normal Bilaterally - Neck Exam Neck exam: Negative for: Lymphadenopathy, Thyromegaly - Respiratory Exam Respiratory Exam: Decreased Breath Sounds, Rales, Rhonchi - Cardiovascular Exam Cardiovascular Exam: REGULAR RHYTHM, +S1, +S2 - GI/Abdominal Exam GI & Abdominal Exam: Diminished Bowel Sounds, Soft. absent: Tenderness - Rectal Exam Rectal Exam: Deferred - Exam Exam: NORMAL INSPECTION - Extremities Exam Extremities exam: Positive for: pedal edema, pedal pulses present. Negative for : calf tenderness, tenderness - Back Exam Back exam: absent: CVA tenderness (L), CVA tenderness (R) - Neurological Exam Neurological exam: Alert, CN II-XII Intact, Oriented x3, Reflexes Normal - Psychiatric Exam Psychiatric exam: Normal Mood - Skin Skin Exam: Dry Results - Vital Signs Recent Vital Signs: Last Vital Signs Temp 98.4 F 09/03/17 08:28 Pulse 74 09/03/17 08:28 Resp 20 09/03/17 08:28 BP 121/67 09/03/17 08:28 Pulse Ox 93 L 09/03/17 08:28 - Labs Result Diagrams: 09/02/17 08:30 09/02/17 08:30 Labs: Laboratory Results - last 24 hr 09/02/17 08:30 Rheum Arthritis Panel Negative Assessment & Plan - Assessment and Plan (Free Text) Plan: resp insuff - likely COPD acute laryngitis otitis rhinitis bronchitis r/o mastoidits will d/c vanco rocephin as cultures neg thus far add unasyn then transition to augmantin when conditions allow cont iv antibiotics , resp rx and bronchodilators
--- NOTE | 2017-09-03 13:45 | PQF GENQUE ---
Dr. Camilo, Pneumonia and Sepsis: ruled in or ruled out? OR: Other explanation of clinical finding V/S tab in the EMR: Temp.:102->99.2 Pulse;83->102->98->102 Respirations: 22 Shortness of Breath, Accessory Muscle Use, SOB on Exertion WBC:8.3->12.1 09/01 CXR: No active disease. 09/02 CXR:Limited motion degraded study. Mild left basilar atelectasis felt be present ER MD : ER: Clinical Impression: Pneumonia, Severe sepsis ID; --CT neck yesterday, which showed "otomastoiditisresp insuff - likely COPD acute laryngitis otitis rhinitis bronchitis r/o mastoidits 09/02: [employer] note: admitted for PNA , sev sepsis Impression: SOB secondary to Acute Bronchitis vs PNA 09/02 Attending documentation includes: ; start Vancomycin for otomastoiditis. The clinical picture could be related to Sjogren Syndrome with complication of enlargement of parotid and otomastoiditis and interstitial lung diseases with exacerbation of COPD.Mastoiditis Status: Acute Dysphagia Status: Acute Sjoegren syndrome Status: Suspected Exacerbation of asthma Status: Acute Parotid gland enlargement Status: Acute:See the full note in the EMR 09/03 Pulmonary note: former cigarette smoker and an element of chronic bronchitis may be present. 1+ dependent edema is noted in both lower extremities.Patient has ABG requested yesterday which has not This form is a permanent part of the medical record Clarification of your documentation is requested to better reflect the severity of illness and intensity of treatment of your patient. Indicators present [] Specify: [x] pneumonia ruled out [] Specify: [] [] Specify: [] [] Specify: [] Location in the medical record that reflects the above clinical findings: [] Treatment Provided: [] PHYSICIAN'S RESPONSE Based on your medical judgment of the clinical indicators outlined above please clarify the following: [] Practitioner response [] If unable to determine, please check the box, sign and date. Present On Admission (POA) Indicator: [] Present at the time of admission [] Not present at the time of admission [] Clinically Undetermined In responding to this query, please exercise your independent professional judgment. The fact that a question is asked does not imply that any particular answer is desired or expected. Thank you for your clarification on this documentation. If you have any questions please call. * Thank you, Catarina Glynn RN ext. #[phone] MTDD
--- NOTE | 2017-09-03 13:49 | PQF GENQUE ---
Dr. Camilo, 2 queries: 1. Please clarify type of asthma: if known Childhood Cough variant Exercise induced Late onset Mild intermittent Mild persistent Moderate persistent Severe persistent With bronchitis(please clarify acuity of bronchitis) With chronic lung disease (please document specific chronic lung disease) Other (please specify) Clinically unable to determine Unknown 2. Please clarify if POA This form is a permanent part of the medical record Clarification of your documentation is requested to better reflect the severity of illness and intensity of treatment of your patient. Indicators present [] Specify: [] [] Specify: [] [] Specify: [] [] Specify: [] Location in the medical record that reflects the above clinical findings: [] Treatment Provided: [] PHYSICIAN'S RESPONSE Based on your medical judgment of the clinical indicators outlined above please clarify the following: [] Practitioner response [] If unable to determine, please check the box, sign and date. Present On Admission (POA) Indicator: [] Present at the time of admission [] Not present at the time of admission [] Clinically Undetermined In responding to this query, please exercise your independent professional judgment. The fact that a question is asked does not imply that any particular answer is desired or expected. Thank you for your clarification on this documentation. If you have any questions please call. * Thank you, Catarina Glynn RN ext. #[phone] MTDD
--- NOTE | 2017-09-03 14:42 | CP.PCM.PN ---
Subjective - Date & Time of Evaluation Date of Evaluation: 09/03/17 Time of Evaluation: 14:52 - Subjective Subjective: Above noted and appreciated. Still looks in distress with dyspena on minimal exertion, anxiety, pallor, poor inspirator effort and severe generalized weakness. She presented with sudden paroxistic exacerbation of respiratory distress and desaturation. The code was called to stabilize her respiratory condition. Wheezing are persistent and the Peak Flow is less than 25% predictable. Now she present with edema despite the fact that the ECHO is normal. Will increase iv steroid and give a challenge of furosemide. The clinical condition if guarded. Objective - Vital Signs/Intake and Output Vital Signs (last 24 hours): Temp Pulse Resp BP Pulse Ox 98.1 F 77 18 158/74 H 94 L 09/03/17 12:21 09/03/17 12:21 09/03/17 12:21 09/03/17 12:21 09/03/17 12:21 - Medications Medications: Current Medications Albuterol Sulfate (Albuterol 0.083% Inhal Yanira (2.5 Mg/3 Ml) Ud) 2.5 mg INH RQ4 PRN PRN Reason: Shortness of Breath Albuterol/Ipratropium (Duoneb 3 Mg/0.5 Mg (3 Ml) Ud) 3 ml INH RQID [facility] Calcium Carbonate (Oscal) 500 mg PO DAILY [facility] Last Admin: 09/03/17 09:27 Dose: 500 mg Enoxaparin Sodium (Lovenox) 40 mg SC DAILY [facility] PRN Reason: Protocol Last Admin: 09/03/17 09:27 Dose: 40 mg Escitalopram Oxalate (Lexapro) 20 mg PO DAILY [facility] Last Admin: 09/03/17 09:27 Dose: 20 mg Ampicillin Sodium/Sulbactam (Sodium 3 gm/ Sodium Chloride) 100 mls @ 100 mls/ hr IVPB Q6 [facility] PRN Reason: Protocol Methylprednisolone (Solu-Medrol) 60 mg IVP Q12 [facility] Pantoprazole Sodium (Protonix Inj) 40 mg IVP DAILY [facility] Last Admin: 09/03/17 09:28 Dose: 40 mg - Labs Labs: 09/02/17 08:30 09/02/17 08:30 PT 12.9 Seconds (9.8-13.1) 09/01/17 13:50 INR 1.2 (0.9-1.2) 09/01/17 13:50 APTT 30.0 Seconds (25.6-37.1) 09/01/17 13:50 Assessment and Plan (1) GERD (gastroesophageal reflux disease) Status: Chronic (2) Stridor Status: Suspected (3) COPD (chronic obstructive pulmonary disease) Status: Chronic (4) Cough Status: Acute (5) CAD (coronary artery disease) Status: Chronic (6) Obesity (BMI 30-39.9) Status: Chronic (7) Depression Status: Chronic (8) Dyspnea and respiratory abnormalities Status: Acute (9) Mastoiditis Status: Acute (10) Dysphagia Status: Acute (11) Sjoegren syndrome Status: Suspected (12) Exacerbation of asthma Status: Acute (13) Parotid gland enlargement Status: Acute
[2017-09-03] MEDS: Albuterol-Ipratrop 3 mg / 0.5 (3 ml) UD INH SCH ×2 (15:45→20:11)
[2017-09-03 15:56] LABS: BASO % 0.3 % (0.0-2.0); LYMPH # 1.4 K/uL (1.0-4.3); LYMPH % 10.7 % (20.0-40.0); MEAN CELL VOLUME 83.7 fl (81.0-99.0); MEAN CORPUSCULAR HEMOGLOBIN 27.3 pg (27.0-31.0); MEAN CORPUSCULAR HGB CONC 32.6 g/dL (33.0-37.0); MEAN PLATELET VOLUME 7.9 fl (7.2-11.7); MONO # 0.5 K/uL (0.0-0.8); MONO % 3.9 % (0.0-10.0); NEUT # 10.9 K/uL (1.8-7.0); NEUT % 85.1 % (50.0-75.0); NRBC % 0.3 % (0.0-0.0); RBC 5.12 Mil/uL (3.80-5.20); RED CELL DISTRIBUTION WIDTH 15.8 % (11.5-14.5); WHITE BLOOD COUNT 12.8 K/uL (4.8-10.8)
[2017-09-03 16:41] LABS: BLOOD UREA NITROGEN 21 mg/dl (7-17); CALCIUM 8.7 mg/dL (8.4-10.2); GFR AFRICAN-AMERICAN > 60; GFR NON-AFRICAN AMERICAN > 60
[2017-09-03] MEDS: Albuterol 0.083% Inhal Sol (2.5 mg/3 mL) UD INH PRN (18:34)
[2017-09-04] MEDS: Albuterol 0.083% Inhal Sol (2.5 mg/3 mL) UD INH PRN ×2 (04:18→23:46)
[2017-09-04] MEDS: Albuterol-Ipratrop 3 mg / 0.5 (3 ml) UD INH SCH ×4 (08:10→19:50)
[2017-09-04] MEDS: Enoxaparin 40 mg Syringe SC SCH (09:08)
--- NOTE | 2017-09-04 10:38 | CP.PCM.PN ---
Subjective - Date & Time of Evaluation Date of Evaluation: 09/04/17 Time of Evaluation: 10:31 - Subjective Subjective: Continues to have episodic wheezing and dyspnea. Had stat aerosol treatment overnight. Peak flow was only 110 LPM. Sleeps seated in a chair most of the time. Had been sleeping in her kitchen chair at home before admission. Still has 1+ dependant edema of both feet extending to the knees. No cyanosis. Placed on 4 LPM nasal canula with SpO2 only 91% this morning. Heart rate is controlled in the 70's. Increased AP diameter of thorax w/o dullness on percussion. Breath sounds are diminished bilaterally with prolonged E phase and polyphonic E wheezes bilaterally. Heart sounds are distant, rhythm is regular. COPD with exacerbation. No evidence of pneumonia. Will monitor overnight oximetry (recorded). Continue aerosol therapy via nebulizer. Will begin LABA/ICS and LAMA. Objective - Vital Signs/Intake and Output Vital Signs (last 24 hours): Temp Pulse Resp BP Pulse Ox 97.9 F 77 18 166/82 H 93 L 09/04/17 08:00 09/04/17 08:00 09/04/17 08:00 09/04/17 08:00 09/04/17 08:00 Intake and Output: 09/03/17 09/04/17 23:59 11:59 Intake Total 1150 Balance 1150 - Medications Medications: Current Medications Albuterol Sulfate (Albuterol 0.083% Inhal Yanira (2.5 Mg/3 Ml) Ud) 2.5 mg INH RQ4 PRN PRN Reason: Shortness of Breath Last Admin: 09/04/17 04:18 Dose: 2.5 mg Albuterol/Ipratropium (Duoneb 3 Mg/0.5 Mg (3 Ml) Ud) 3 ml INH RQID [facility] Last Admin: 09/04/17 08:10 Dose: 3 ml Calcium Carbonate (Oscal) 500 mg PO DAILY [facility] Last Admin: 09/04/17 09:08 Dose: 500 mg Enoxaparin Sodium (Lovenox) 40 mg SC DAILY [facility] PRN Reason: Protocol Last Admin: 09/04/17 09:08 Dose: 40 mg Escitalopram Oxalate (Lexapro) 20 mg PO DAILY [facility] Last Admin: 09/04/17 09:08 Dose: 20 mg Ampicillin Sodium/Sulbactam (Sodium 3 gm/ Sodium Chloride) 100 mls @ 100 mls/ hr IVPB Q6 [facility] PRN Reason: Protocol Last Admin: 09/04/17 09:09 Dose: 100 mls/hr Methylprednisolone (Solu-Medrol) 60 mg IVP Q8 [facility] Last Admin: 09/04/17 09:09 Dose: 60 mg Pantoprazole Sodium (Protonix Inj) 40 mg IVP DAILY [facility] Last Admin: 09/04/17 09:09 Dose: 40 mg - Labs Labs: 09/03/17 15:51 09/03/17 15:51 PT 12.9 Seconds (9.8-13.1) 09/01/17 13:50 INR 1.2 (0.9-1.2) 09/01/17 13:50 APTT 30.0 Seconds (25.6-37.1) 09/01/17 13:50 Assessment and Plan (1) Dyspnea and respiratory abnormalities Status: Acute
[2017-09-04 12:56] LABS: BLOOD UREA NITROGEN 20 mg/dl (7-17); GFR AFRICAN-AMERICAN > 60; GFR NON-AFRICAN AMERICAN > 60
--- NOTE | 2017-09-04 13:08 | CP.PCM.PN ---
Subjective - Date & Time of Evaluation Date of Evaluation: 09/04/17 Time of Evaluation: 13:10 - Subjective Subjective: Patient poorly respond to present rx. Still with dyspena and poor response to present rx start furosemide.Will follow cardiology consult. Continue present rx add Lasix daily, will follow electrolytes. Pulmonary ENT consults appreciated. Objective - Vital Signs/Intake and Output Vital Signs (last 24 hours): Temp Pulse Resp BP Pulse Ox 98.2 F 66 18 153/66 H 92 L 09/04/17 11:55 09/04/17 11:55 09/04/17 11:55 09/04/17 11:55 09/04/17 11:55 - Medications Medications: Current Medications Albuterol Sulfate (Albuterol 0.083% Inhal Yanira (2.5 Mg/3 Ml) Ud) 2.5 mg INH RQ4 PRN PRN Reason: Shortness of Breath Last Admin: 09/04/17 04:18 Dose: 2.5 mg Albuterol/Ipratropium (Duoneb 3 Mg/0.5 Mg (3 Ml) Ud) 3 ml INH RQID [facility] Last Admin: 09/04/17 11:37 Dose: 3 ml Calcium Carbonate (Oscal) 500 mg PO DAILY [facility] Last Admin: 09/04/17 09:08 Dose: 500 mg Enoxaparin Sodium (Lovenox) 40 mg SC DAILY [facility] PRN Reason: Protocol Last Admin: 09/04/17 09:08 Dose: 40 mg Escitalopram Oxalate (Lexapro) 20 mg PO DAILY [facility] Last Admin: 09/04/17 09:08 Dose: 20 mg Furosemide (Lasix) 60 mg IV DAILY [facility] Ampicillin Sodium/Sulbactam (Sodium 3 gm/ Sodium Chloride) 100 mls @ 100 mls/ hr IVPB Q6 [facility] PRN Reason: Protocol Last Admin: 09/04/17 09:09 Dose: 100 mls/hr Methylprednisolone (Solu-Medrol) 60 mg IVP Q8 [facility] Last Admin: 09/04/17 09:09 Dose: 60 mg Pantoprazole Sodium (Protonix Inj) 40 mg IVP DAILY [facility] Last Admin: 09/04/17 09:09 Dose: 40 mg Fluticasone/Salmeterol (Advair Diskus 250/50) 1 puff IH Q12 [facility] Tiotropium [place] (Spiriva) 18 mcg INH DAILY [facility] - Labs Labs: 09/03/17 15:51 09/04/17 12:42 PT 12.9 Seconds (9.8-13.1) 09/01/17 13:50 INR 1.2 (0.9-1.2) 09/01/17 13:50 APTT 30.0 Seconds (25.6-37.1) 09/01/17 13:50 - Constitutional Appears: Chronically Ill - Head Exam Head Exam: ATRAUMATIC, NORMAL INSPECTION, NORMOCEPHALIC - Eye Exam Eye Exam: Normal appearance - ENT Exam ENT Exam: Mucous Membranes Moist - Neck Exam Neck Exam: Full ROM - Respiratory Exam Respiratory Exam: Decreased Breath Sounds - Cardiovascular Exam Cardiovascular Exam: REGULAR RHYTHM, +S1, +S2 - GI/Abdominal Exam GI & Abdominal Exam: Soft, Normal Bowel Sounds - Extremities Exam Extremities Exam: Pedal Edema - Neurological Exam Neurological Exam: Alert, Awake, CN II-XII Intact, Oriented x3 - Psychiatric Exam Psychiatric exam: Flat Affect - Skin Skin Exam: Pallor Assessment and Plan (1) GERD (gastroesophageal reflux disease) Status: Chronic (2) Stridor Status: Resolved (3) COPD (chronic obstructive pulmonary disease) Status: Chronic (4) Cough Status: Acute (5) CAD (coronary artery disease) Status: Chronic (6) Obesity (BMI 30-39.9) Status: Chronic (7) Depression Status: Chronic (8) Dyspnea and respiratory abnormalities Status: Acute (9) Mastoiditis Status: Acute (10) Dysphagia Status: Acute (11) Sjoegren syndrome Status: Suspected (12) Exacerbation of asthma Status: Acute (13) Parotid gland enlargement Status: Acute - Assessment and Plan (Free Text) Plan: As pre orders.
[2017-09-04] MEDS: Tiotropium 18 mcg Cap For Inhalation INH SCH (13:37)
[2017-09-04] MEDS: Fluticasone-Salmeterol 250-50mcg Diskus IH SCH ×2 (13:37→22:07)
--- NOTE | 2017-09-04 14:02 | CP.PCM.PN ---
Subjective - Date & Time of Evaluation Date of Evaluation: 09/04/17 Time of Evaluation: 08:00 - Subjective Subjective: stilll with cough and SOB weak and c/o hoarseness denies fever no abd pain awake alert + leg swelling Objective - Vital Signs/Intake and Output Vital Signs (last 24 hours): Temp Pulse Resp BP Pulse Ox 98.2 F 66 18 153/66 H 92 L 09/04/17 11:55 09/04/17 11:55 09/04/17 11:55 09/04/17 11:55 09/04/17 11:55 - Medications Medications: Current Medications Albuterol Sulfate (Albuterol 0.083% Inhal Yanira (2.5 Mg/3 Ml) Ud) 2.5 mg INH RQ4 PRN PRN Reason: Shortness of Breath Last Admin: 09/04/17 04:18 Dose: 2.5 mg Albuterol/Ipratropium (Duoneb 3 Mg/0.5 Mg (3 Ml) Ud) 3 ml INH RQID [facility] Last Admin: 09/04/17 11:37 Dose: 3 ml Calcium Carbonate (Oscal) 500 mg PO DAILY [facility] Last Admin: 09/04/17 09:08 Dose: 500 mg Enoxaparin Sodium (Lovenox) 40 mg SC DAILY [facility] PRN Reason: Protocol Last Admin: 09/04/17 09:08 Dose: 40 mg Escitalopram Oxalate (Lexapro) 20 mg PO DAILY [facility] Last Admin: 09/04/17 09:08 Dose: 20 mg Furosemide (Lasix) 60 mg IV DAILY [facility] Ampicillin Sodium/Sulbactam (Sodium 3 gm/ Sodium Chloride) 100 mls @ 100 mls/ hr IVPB Q6 [facility] PRN Reason: Protocol Last Admin: 09/04/17 09:09 Dose: 100 mls/hr Methylprednisolone (Solu-Medrol) 60 mg IVP Q8 [facility] Last Admin: 09/04/17 09:09 Dose: 60 mg Pantoprazole Sodium (Protonix Inj) 40 mg IVP DAILY [facility] Last Admin: 09/04/17 09:09 Dose: 40 mg Fluticasone/Salmeterol (Advair Diskus 250/50) 1 puff IH Q12 [facility] Last Admin: 09/04/17 13:37 Dose: 1 puff Tiotropium [place] (Spiriva) 18 mcg INH DAILY [facility] Last Admin: 09/04/17 13:37 Dose: 18 mcg - Labs Labs: 09/03/17 15:51 09/04/17 12:42 PT 12.9 Seconds (9.8-13.1) 09/01/17 13:50 INR 1.2 (0.9-1.2) 09/01/17 13:50 APTT 30.0 Seconds (25.6-37.1) 09/01/17 13:50 - Constitutional Appears: Non-toxic, Chronically Ill - Head Exam Head Exam: NORMOCEPHALIC - Eye Exam Eye Exam: PERRL. absent: Scleral icterus Pupil Exam: PERRL - ENT Exam ENT Exam: Mucous Membranes Dry, Normal External Ear Exam, Normal Oropharynx - Neck Exam Neck Exam: absent: Lymphadenopathy, Thyromegaly - Respiratory Exam Respiratory Exam: Decreased Breath Sounds, Prolonged Expiratory Phase, Rhonchi - Cardiovascular Exam Cardiovascular Exam: REGULAR RHYTHM, +S1, +S2 - GI/Abdominal Exam GI & Abdominal Exam: Distended, Soft. absent: Tenderness - Rectal Exam Rectal Exam: Deferred - Exam Exam: NORMAL INSPECTION - Extremities Exam Extremities Exam: Pedal Edema. absent: Calf Tenderness, Tenderness - Back Exam Back Exam: absent: CVA tenderness (L), CVA tenderness (R) - Neurological Exam Neurological Exam: Alert, Awake, CN II-XII Intact, Normal Gait, Oriented x3 Neuro motor strength exam: Left Upper Extremity: 4, Right Upper Extremity: 4, Left Lower Extremity: 4, Right Lower Extremity: 4 - Psychiatric Exam Psychiatric exam: Depressed - Skin Skin Exam: Dry Assessment and Plan - Assessment and Plan (Free Text) Assessment: CHF/COPD EXAC WITH RESP INSUFF SEVERE LARYNGO-TRACHEO- BRONCHITIS OTITIS EXTERNA RESP INSUFF GUARDED PROGNOSIS
--- NOTE | 2017-09-04 14:30 | PQF GENQUE ---
Dr. Camilo, 2 queries: 1. Please specify the type of heart failure exacerbation in your progress notes: if in agreement with ID hadoop consultant VERSUS CHF ruled out? TYPE: Combined systolic and diastolic Heart failure with reduced ejection fraction and diastolic dysfunction Diastolic HFpEF Systolic HFrEF Left heart failure Right heart failure Right heart failure due to left heart failure High Output failure End stage heart failure Other (please specify) Clinically unable to determine Unknown 2. POA? 09/01 Pro BNP:122 09/01 CXR: Impression: No active disease. 09/04 ID progress note:stilll with cough and SOB; + leg swelling Assessment: CHF/COPD EXAC WITH RESP INSUFF , SEVERE LARYNGO-TRACHEO- BRONCHITIS OTITIS EXTERNA RESP INSUFF Lasix IV daily This form is a permanent part of the medical record Clarification of your documentation is requested to better reflect the severity of illness and intensity of treatment of your patient. Indicators present [] Specify: [X] CHF systolic and diastollic [] Specify: [X] pneumonia and sepsis rulled out [] Specify: [X ] [] Specify: [] Location in the medical record that reflects the above clinical findings: [] Treatment Provided: [] PHYSICIAN'S RESPONSE Based on your medical judgment of the clinical indicators outlined above please clarify the following: [] CHF systolic and diastolic, sepsis and pneumonia rulled out, The present diagnosis is CHF/COPD EXAC WITH RESP INSUFF , SEVERE LARYNGO-TRACHEO- BRONCHITIS OTITIS EXTERNA RESP INSUFF [] If unable to determine, please check the box, sign and date. Present On Admission (POA) Indicator: [] Present at the time of admission [] Not present at the time of admission [] Clinically Undetermined In responding to this query, please exercise your independent professional judgment. The fact that a question is asked does not imply that any particular answer is desired or expected. Thank you for your clarification on this documentation. If you have any questions please call. * Thank you, Catarina Glynn RN ext. #[phone] MTDD
--- NOTE | 2017-09-04 15:01 | RAD ---
HISTORY: COPD COMPARISON: Comparison chest dated 09/02/2017 TECHNIQUE: Chest PA and lateral FINDINGS: LUNGS: Minor bibasilar atelectasis. . Increased/coarsened interstitial markings with a few scattered peribronchial cuffing changes. Rule out sequela of reactive/inflammatory airway disease or viral illness. PLEURA: No significant pleural effusion identified. No pneumothorax apparent. CARDIOVASCULAR: Cardiac silhouette stable. OSSEOUS STRUCTURES: Minor chronic anterior stature loss of few upper/ mid thoracic segments with multilevel degenerative spondylosis. VISUALIZED UPPER ABDOMEN: Normal. OTHER FINDINGS: None. IMPRESSION: Minor bibasilar atelectasis.Increased/coarsened interstitial markings with a few scattered peribronchial cuffing changes. Rule out sequela of reactive/inflammatory airway disease or viral illness
--- NOTE | 2017-09-04 21:03 | CP.PCM.CON ---
History of Present Illness - History of Present Illness History of Present Illness: 72 year old female admitted with acute exacerbation of copd, bronchitis referred for evaluation of chronic reflux. Pt not a candidate for endoscopy at present Review of Systems - Respiratory Respiratory: Cough, Dyspnea, Wheezing, Stridor - Gastrointestinal Gastrointestinal: Bloating, Heartburn Past Patient History - Infectious Disease Hx of Infectious Diseases: None - Past Medical History & Family History Past Medical History?: Yes - Past Social History Smoking Status: Former Smoker - CARDIAC Hx Cardiac Disorders: Yes Hx Hypercholesterolemia: Yes Hx Hypertension: Yes - PULMONARY Hx Respiratory Disorders: Yes Hx Pneumonia: Yes - NEUROLOGICAL Hx Neurological Disorder: No - HEENT Hx HEENT Problems: No - RENAL Hx Chronic Kidney Disease: No - ENDOCRINE/METABOLIC Hx Endocrine Disorders: No - HEMATOLOGICAL/ONCOLOGICAL Hx Blood Disorders: No Hx AIDS: No Hx Human Immunodeficiency Virus (HIV): No - INTEGUMENTARY Hx Dermatological Problems: No - MUSCULOSKELETAL/RHEUMATOLOGICAL Hx Arthritis: Yes - GASTROINTESTINAL Hx Gastrointestinal Disorders: No - GENITOURINARY/GYNECOLOGICAL Hx Genitourinary Disorders: No - PSYCHIATRIC Hx Psychophysiologic Disorder: Yes Hx Substance Use: No - SURGICAL HISTORY Hx Surgeries: Yes Hx Section: Yes Hx Coronary Stent: Yes - ANESTHESIA Hx Anesthesia: Yes Hx Anesthesia Reactions: No Hx Malignant Hyperthermia: No Has any member of the family had a problem w/ anesthesia?: No Meds Allergies/Adverse Reactions: Allergies Allergy/AdvReac Type Severity Reaction Status Date / Time No Known Allergies Allergy Verified 06/27/17 18:19 - Medications Medications: Current Medications Albuterol Sulfate (Albuterol 0.083% Inhal Yanira (2.5 Mg/3 Ml) Ud) 2.5 mg INH RQ4 PRN PRN Reason: Shortness of Breath Last Admin: 09/04/17 04:18 Dose: 2.5 mg Albuterol/Ipratropium (Duoneb 3 Mg/0.5 Mg (3 Ml) Ud) 3 ml INH RQID [facility] Last Admin: 09/04/17 19:50 Dose: 3 ml Calcium Carbonate (Oscal) 500 mg PO DAILY [facility] Last Admin: 09/04/17 09:08 Dose: 500 mg Enoxaparin Sodium (Lovenox) 40 mg SC DAILY [facility] PRN Reason: Protocol Last Admin: 09/04/17 09:08 Dose: 40 mg Escitalopram Oxalate (Lexapro) 20 mg PO DAILY [facility] Last Admin: 09/04/17 09:08 Dose: 20 mg Furosemide (Lasix) 60 mg IV DAILY [facility] Last Admin: 09/04/17 16:19 Dose: 60 mg Ampicillin Sodium/Sulbactam (Sodium 3 gm/ Sodium Chloride) 100 mls @ 100 mls/ hr IVPB Q6 [facility] PRN Reason: Protocol Last Admin: 09/04/17 16:18 Dose: 100 mls/hr Methylprednisolone (Solu-Medrol) 60 mg IVP Q8 [facility] Last Admin: 09/04/17 16:20 Dose: 60 mg Pantoprazole Sodium (Protonix Ec Tab) 40 mg PO DAILY [facility] Fluticasone/Salmeterol (Advair Diskus 250/50) 1 puff IH Q12 [facility] Last Admin: 09/04/17 13:37 Dose: 1 puff Tiotropium [place] (Spiriva) 18 mcg INH DAILY [facility] Last Admin: 09/04/17 13:37 Dose: 18 mcg Physical Exam - Head Exam Head Exam: ATRAUMATIC, NORMAL INSPECTION, NORMOCEPHALIC - Eye Exam Eye Exam: EOMI, Normal appearance, PERRL - ENT Exam ENT Exam: Mucous Membranes Moist, Normal Exam - Neck Exam Neck exam: Positive for: Normal Inspection - Respiratory Exam Respiratory Exam: Accessory Muscle Use, Decreased Breath Sounds, Rhonchi - Cardiovascular Exam Cardiovascular Exam: REGULAR RHYTHM - GI/Abdominal Exam GI & Abdominal Exam: Normal Bowel Sounds Results - Vital Signs Recent Vital Signs: Last Vital Signs Temp 98.2 F 09/04/17 19:57 Pulse 78 09/04/17 19:57 Resp 19 09/04/17 19:57 BP 153/69 H 09/04/17 19:57 Pulse Ox 92 L 09/04/17 19:57 - Labs Result Diagrams: 09/03/17 15:51 09/04/17 12:42 Labs: Laboratory Results - last 24 hr 09/02/17 09/04/17 09/04/17 08:30 12:42 13:05 Sodium 138 Potassium 3.8 Chloride 90 L Carbon Dioxide 33 H Anion Gap 19 BUN 20 H Creatinine 0.5 L Est GFR ( Amer) > 60 Est GFR (Non-Af Amer) > 60 Random Glucose 351 H Hemoglobin A1c 6.9 H Calcium 8.0 L Magnesium 2.5 H TSH 3rd Generation YESSENIA Screen Negative 09/04/17 13:05 Sodium Potassium Chloride Carbon Dioxide Anion Gap BUN Creatinine Est GFR ( Amer) Est GFR (Non-Af Amer) Random Glucose Hemoglobin A1c Calcium Magnesium TSH 3rd Generation 0.29 L YESSENIA Screen Assessment & Plan (1) Dyspnea and respiratory abnormalities Status: Acute (2) Dysphagia Status: Acute (3) Exacerbation of asthma Status: Acute (4) Mastoiditis Status: Acute (5) Parotid gland enlargement Status: Acute (6) Pneumonia Status: Acute (7) Severe sepsis Status: Acute (8) Depression Status: Chronic (9) GERD (gastroesophageal reflux disease) Assessment and Plan: Agree with present management,pt not a candidate for egd at present.Will reevaluate when medically cleared. Status: Acute
[2017-09-05] MEDS: Albuterol 0.083% Inhal Sol (2.5 mg/3 mL) UD INH PRN (04:42)
[2017-09-05] MEDS: Albuterol-Ipratrop 3 mg / 0.5 (3 ml) UD INH SCH ×3 (07:45→15:26)
[2017-09-05 08:06] LABS: BLOOD UREA NITROGEN 15 mg/dl (7-17); GFR AFRICAN-AMERICAN > 60; GFR NON-AFRICAN AMERICAN > 60
[2017-09-05] MEDS ORDERED: Pantoprazole 40 mg EC Tab PO SCH (09:00)
[2017-09-05] MEDS: Fluticasone-Salmeterol 250-50mcg Diskus IH SCH (09:34)
[2017-09-05] MEDS: Enoxaparin 40 mg Syringe SC SCH (09:37)
[2017-09-05] MEDS: Tiotropium 18 mcg Cap For Inhalation INH SCH (09:39)
[2017-09-05] MEDS ORDERED: Potassium Chloride 20 mEq ER Tab PO ONE ×2 (10:49→11:08)
[2017-09-05] MEDS ORDERED: Enoxaparin 40 mg Syringe SC SCH (11:15)
--- NOTE | 2017-09-05 11:16 | CP.PCM.DIS ---
Provider - Provider Date of Admission: 09/01/17 12:06 Attending physician: José Luis Camilo MD Time Spent in preparation of Discharge (in minutes): 30 Diagnosis - Discharge Diagnosis (1) GERD (gastroesophageal reflux disease) Status: Chronic (2) Stridor Status: Resolved (3) COPD (chronic obstructive pulmonary disease) Status: Chronic (4) Cough Status: Acute Priority: High (5) CAD (coronary artery disease) Status: Chronic (6) Obesity (BMI 30-39.9) Status: Chronic (7) Depression Status: Chronic (8) Dyspnea and respiratory abnormalities Status: Acute (9) Mastoiditis Status: Acute (10) Dysphagia Status: Acute (11) Sjoegren syndrome Status: Ruled-out (12) Exacerbation of asthma Status: Acute (13) Parotid gland enlargement Status: Acute Hospital Course - Lab Results Lab Results: Micro Results 09/01/17 10:15 Blood Blood Culture - Preliminary NO GROWTH AFTER 4 DAYS 09/01/17 14:50 Urine,Clean Catch Urine Culture - Final No Growth (<1,000 CFU/ML) Most Recent Lab Values WBC 12.8 K/uL (4.8-10.8) H 09/03/17 15:51 RBC 5.12 Mil/uL (3.80-5.20) 09/03/17 15:51 Hgb 14.0 g/dL (12.0-16.0) 09/03/17 15:51 Hct 42.9 % (34.0-47.0) 09/03/17 15:51 MCV 83.7 fl (81.0-99.0) 09/03/17 15:51 MCH 27.3 pg (27.0-31.0) 09/03/17 15:51 MCHC 32.6 g/dL (33.0-37.0) L 09/03/17 15:51 RDW 15.8 % (11.5-14.5) H 09/03/17 15:51 Plt Count 214 K/uL (130-400) 09/03/17 15:51 MPV 7.9 fl (7.2-11.7) 09/03/17 15:51 Neut % (Auto) 85.1 % (50.0-75.0) H 09/03/17 15:51 Lymph % (Auto) 10.7 % (20.0-40.0) L 09/03/17 15:51 [place] % (Auto) 3.9 % (0.0-10.0) 09/03/17 15:51 Eos % (Auto) 0.0 % (0.0-4.0) 09/03/17 15:51 Baso % (Auto) 0.3 % (0.0-2.0) 09/03/17 15:51 Neut # (Auto) 10.9 K/uL (1.8-7.0) H 09/03/17 15:51 Lymph # (Auto) 1.4 K/uL (1.0-4.3) 09/03/17 15:51 [place] # (Auto) 0.5 K/uL (0.0-0.8) 09/03/17 15:51 Eos # (Auto) 0.0 K/uL (0.0-0.7) 09/03/17 15:51 Baso # (Auto) 0.0 K/uL (0.0-0.2) 09/03/17 15:51 PT 12.9 Seconds (9.8-13.1) 09/01/17 13:50 INR 1.2 (0.9-1.2) 09/01/17 13:50 APTT 30.0 Seconds (25.6-37.1) 09/01/17 13:50 D-Dimer, Quantitative 296 ng/mlDDU (0-230) H 09/01/17 16:12 pO2 25 mm/Hg (30-55) L 09/01/17 10:25 VBG pH 7.30 (7.32-7.43) L 09/01/17 10:25 VBG pCO2 71 mmHg (40-60) H* 09/01/17 10:25 VBG HCO3 28.0 mmol/L 09/01/17 10:25 VBG Total CO2 37.1 mmol/L (22-28) H 09/01/17 10:25 VBG O2 Sat (Calc) 39.8 % (40-65) L 09/01/17 10:25 VBG Base Excess 6.0 mmol/L (0.0-2.0) H 09/01/17 10:25 VBG Potassium 3.9 mmol/L (3.6-5.2) 09/01/17 10:25 Sodium 136.0 mmol/L (132-148) 09/01/17 10:25 Chloride 97.0 mmol/L (98-107) L 09/01/17 10:25 Glucose 103 mg/dL (65-105) 09/01/17 10:25 Lactate 2.0 mmol/L (0.7-2.1) 09/01/17 10:25 FiO2 21.0 % 09/01/17 10:25 Crit Value Called To Pooja marie 09/01/17 10:25 Crit Value Called By [id number] 09/01/17 10:25 Crit Value Read Back Y 09/01/17 10:25 Blood Gas Notified Time 1030 09/01/17 10:25 Sodium 140 mmol/l (132-148) 09/05/17 07:22 Potassium 3.2 MMOL/L (3.6-5.0) L 09/05/17 07:22 Chloride 93 mmol/L (98-107) L 09/05/17 07:22 Carbon Dioxide 35 mmol/L (22-30) H 09/05/17 07:22 Anion Gap 15 (10-20) 09/05/17 07:22 BUN 15 mg/dl (7-17) 09/05/17 07:22 Creatinine 0.4 mg/dl (0.7-1.2) L 09/05/17 07:22 Est GFR ( Amer) > 60 09/05/17 07:22 Est GFR (Non-Af Amer) > 60 09/05/17 07:22 Random Glucose 226 mg/dL (65-105) H 09/05/17 07:22 Hemoglobin A1c 6.9 % (4.2-6.5) H 09/04/17 13:05 Calcium 8.0 mg/dL (8.4-10.2) L 09/05/17 07:22 Magnesium 2.5 MG/DL (1.6-2.3) H 09/04/17 12:42 Total Bilirubin 0.5 mg/dl (0.2-1.3) 09/01/17 10:15 AST 30 U/L (14-36) 09/01/17 10:15 ALT 28 U/L (9-52) 09/01/17 10:15 Alkaline Phosphatase 55 U/L (38-126) 09/01/17 10:15 Troponin I < 0.0120 ng/mL (0.00-0.120) 09/01/17 16:16 NT-Pro-B Natriuret Pep 122 pg/ml (0-900) 09/01/17 12:10 Total Protein 7.2 G/DL (6.3-8.2) 09/01/17 10:15 Albumin 4.0 g/dL (3.5-5.0) 09/01/17 10:15 Globulin 3.2 gm/dL (2.2-3.9) 09/01/17 10:15 Albumin/Globulin Ratio 1.2 (1.0-2.1) 09/01/17 10:15 Vitamin B12 467 pg/mL (239-931) 09/01/17 16:16 Folate 17.5 ng/mL 09/01/17 16:16 TSH 3rd Generation 0.29 mIU/ML (0.46-4.68) L 09/04/17 13:05 Venous Blood Potassium 3.9 mmol/L (3.6-5.2) 09/01/17 10:25 Urine Color Yellow (YELLOW) 09/01/17 14:50 Urine Clarity Cloudy (Clear) 09/01/17 14:50 Urine pH 6.0 (5.0-8.0) 09/01/17 14:50 Ur Specific Grant 1.016 (1.003-1.030) 09/01/17 14:50 Urine Protein Negative mg/dL (NEGATIVE) 09/01/17 14:50 Urine Glucose (UA) Neg mg/dL (Normal) 09/01/17 14:50 Urine Ketones Trace mg/dL (NEGATIVE) 09/01/17 14:50 Urine Blood Small (NEGATIVE) 09/01/17 14:50 Urine Nitrate Negative (NEGATIVE) 09/01/17 14:50 Urine Bilirubin Negative (NEGATIVE) 09/01/17 14:50 Urine Urobilinogen 0.2-1.0 mg/dL (0.2-1.0) 09/01/17 14:50 Ur Leukocyte Esterase Neg Christi/uL (Negative) 09/01/17 14:50 Urine RBC (Auto) 11 /hpf (0-3) H 09/01/17 14:50 Urine Microscopic WBC < 1 /hpf (0-5) 09/01/17 14:50 Ur Squamous Epith Cells 6 /hpf (0-5) H 09/01/17 14:50 Urine Bacteria Rare (<OCC) 09/01/17 14:50 Rheum Arthritis Panel Negative (NEGATIVE) 09/02/17 08:30 YESSENIA Screen Negative (Negative) 09/02/17 08:30 SS-A Antibody <1.0 AI (<1.0) 09/02/17 11:42 SS-B Ab Interp Negative (Negative) 09/02/17 11:42 SS-B Antibody <1.0 AI (<1.0) 09/02/17 11:42 SS-B Ab Interp Negative (Negative) 09/02/17 11:42 Influenza Typ A,B (EIA) Negative for flu a/b (NEGATIVE) 09/01/17 10:40 - Hospital Course Hospital Course: 72 y/o lady with hx of depression, htn, gerd, morbid obesity presented in ER with severe dyspnea of sudden onset, associated with cough, sob, tachypnea and choking sensation. Patient improved on iv steroid and antibx. Will follow in TCU for PT and continuation of the rx. Discharge Exam - Head Exam Head Exam: ATRAUMATIC, NORMAL INSPECTION, NORMOCEPHALIC - Eye Exam Eye Exam: Normal appearance - Neck Exam Neck exam: Full Rom - Respiratory Exam Respiratory Exam: Decreased Breath Sounds - Cardiovascular Exam Cardiovascular Exam: REGULAR RHYTHM, +S1, +S2 - GI/Abdominal Exam GI & Abdominal Exam: Normal Bowel Sounds - Neurological Exam Neurological exam: Alert, CN II-XII Intact, Oriented x3 - Psychiatric Exam Psychiatric exam: Depressed - Skin Skin Exam: Normal Color Discharge Plan - Follow Up Plan Condition: GUARDED Disposition: TRANSF TO SNF Instructions: Exacerbation of COPD (DC), Acid Reflux (Gastroesophageal Reflux Disease) in Adults Referrals: José Luis Camilo MD [Family Provider] -
--- NOTE | 2017-09-05 11:49 | CP.PCM.PN ---
Subjective - Date & Time of Evaluation Date of Evaluation: 09/05/17 Time of Evaluation: 11:47 - Subjective Subjective: Seated up in bedside chair. Appears to be slowly improving. Still with cough and inability to raise secretions. Vital signs have been stable. Started on LABA/ICS and LAMA yesterday. BP and glucose increasing with continued use of parenteral steroids. Dependant edema + bilaterally. No cyanosis. Pharynx is pink and moist w/o exudate. Neck is supple and trachea midline. No dullness on chest percussion. Breath sounds are present bilaterally, diminished. Scattered E wheezes, lower pitch from before. No rales heard, few rhonchi in dependant regions. Will try to reduce IV solumedrol again. Continue LABA/ICS & LAMA. Will decrease neb treatments tomorrow if continued stable. Objective - Vital Signs/Intake and Output Vital Signs (last 24 hours): Temp Pulse Resp BP Pulse Ox 97.3 F L 72 18 179/75 H 92 L 09/05/17 08:00 09/05/17 09:00 09/05/17 08:00 09/05/17 09:36 09/05/17 08:00 Intake and Output: 09/04/17 09/05/17 23:59 11:59 Intake Total 100 Balance 100 - Medications Medications: Current Medications Albuterol Sulfate (Albuterol 0.083% Inhal Yanira (2.5 Mg/3 Ml) Ud) 2.5 mg INH RQ4 PRN PRN Reason: Shortness of Breath Last Admin: 09/05/17 04:42 Dose: 2.5 mg Albuterol/Ipratropium (Duoneb 3 Mg/0.5 Mg (3 Ml) Ud) 3 ml INH RQID [facility] Last Admin: 09/05/17 11:04 Dose: 3 ml Calcium Carbonate (Oscal) 500 mg PO DAILY [facility] Last Admin: 09/05/17 09:38 Dose: 500 mg Enoxaparin Sodium (Lovenox) 40 mg SC DAILY [facility] PRN Reason: Protocol Escitalopram Oxalate (Lexapro) 20 mg PO DAILY [facility] Last Admin: 09/05/17 09:37 Dose: 20 mg Furosemide (Lasix) 60 mg IV DAILY [facility] Last Admin: 09/05/17 09:36 Dose: 60 mg Ampicillin Sodium/Sulbactam (Sodium 3 gm/ Sodium Chloride) 100 mls @ 100 mls/ hr IVPB Q6 [facility] PRN Reason: Protocol Last Admin: 09/05/17 09:40 Dose: 100 mls/hr Methylprednisolone (Solu-Medrol) 60 mg IVP Q8 [facility] Last Admin: 09/05/17 09:38 Dose: 60 mg Pantoprazole Sodium (Protonix Ec Tab) 40 mg PO DAILY [facility] Last Admin: 09/05/17 09:38 Dose: 40 mg Fluticasone/Salmeterol (Advair Diskus 250/50) 1 puff IH Q12 [facility] Last Admin: 09/05/17 09:34 Dose: 1 puff Tiotropium [place] (Spiriva) 18 mcg INH DAILY [facility] Last Admin: 09/05/17 09:39 Dose: 18 mcg - Labs Labs: 09/03/17 15:51 09/05/17 07:22 PT 12.9 Seconds (9.8-13.1) 09/01/17 13:50 INR 1.2 (0.9-1.2) 09/01/17 13:50 APTT 30.0 Seconds (25.6-37.1) 09/01/17 13:50 Assessment and Plan (1) Dyspnea and respiratory abnormalities Status: Acute (2) Chronic bronchitis with acute exacerbation Status: Acute
[2017-09-05 12:34] VITALS: BP 136/73; PULSE 78; RESP 20; TEMP 98.1
[2017-09-06 13:38] VITALS: O2SAT 90
--- NOTE | 2017-09-06 15:30 | PQF GENQUE ---
Dr. Camilo, It is unclear whether the following diagnosis or diagnoses below were present on admission. Exacerbation CHF OR: Unable to determine This form is a permanent part of the medical record Clarification of your documentation is requested to better reflect the severity of illness and intensity of treatment of your patient. Indicators present [] Specify: [X] CHF present on admission [] Specify: [] [] Specify: [] [] Specify: [] Location in the medical record that reflects the above clinical findings: [] Treatment Provided: [] PHYSICIAN'S RESPONSE Based on your medical judgment of the clinical indicators outlined above please clarify the following: [] Practitioner response CHF present on admission [] If unable to determine, please check the box, sign and date. Present On Admission (POA) Indicator: [] Present at the time of admission [] Not present at the time of admission [] Clinically Undetermined In responding to this query, please exercise your independent professional judgment. The fact that a question is asked does not imply that any particular answer is desired or expected. Thank you for your clarification on this documentation. If you have any questions please call. * Thank you, Catarina Glynn RN ext. #[phone] MTDD
--- NOTE | 2017-09-09 12:09 | PQF CHF ---
Dr. Camilo query dated 09/04 documented chf/copd exacerbation. Please clarify acuity of congestive heart failure as bnp lab result on 09/01 is 122. This form is a permanent part of the medical record Clarification of your documentation is requested to better reflect the severity of illness and intensity of treatment of your patient. Indicators present [x] Diagnosis of CHF and/or history of CHF [] BNP > 200 [] Imaging Finding of Pulmonary Edema /Pleural Effusions [x] Fluid/Volume Overload [x] Pitting edema [] Ejection Fraction < 40% (Indicative of Systolic Heart Failure) [] Ejection Fraction > 40% (Indicative of Diastolic Heart Failure) [] Dyspnea / Orthopenea / Paroxysmal Nocturnal Dyspnea [] Other: Location in the medical record that reflects the above clinical findings: [] Treatment Provided: [] PHYSICIAN'S RESPONSE Based on your medical judgment of the clinical indicators outlined above, are you treating this patient for a known or suspected: [x] Acute CHF [] Systolic [] Diastolic [x] Combined [] Chronic CHF [] Systolic [] Diastolic [] Combined [] Acute on Chronic CHF []Systolic [] Diastolic [] Combined [] CHF due hypertension [] Acute systolic []Chronic systolic [] Acute/ chronic systolic [] Other, please indicate: [] [] If Unable to Determine, please check the box, sign and date. Present On Admission (POA) Indicator: [x] Present at the time of admission [] Not present at the time of admission [] Clinically Undetermined In responding to this query, please exercise your independent professional judgment. The fact that a question is asked does not imply that any particular answer is desired or expected. Thank you for your clarification on this documentation. If you have any questions please call:[ ] * Thank you, [ ]Jerilyn Greene curtain stretcher SOFIA
== END 2017-09-05 14:00 | DRG 190 ==
LOC: H.ER 09:42 → H.ERHOLD 12:06 → H.TEL 17:14
PROVIDERS: ADMIT Internal Medicine; ATTEND Internal Medicine
PROC: 0CJS8ZZ Inspection of Larynx, Via Natural or Artificial Opening Endoscopic (ICD-10-PCS; principal; 2017-09-02)
DX: J44.1 Chronic obstructive pulmonary disease with (acute) exacerbation (principal); I50.43 Acute on chronic combined systolic (congestive) and diastolic (congestive) heart failure; J45.51 Severe persistent asthma with (acute) exacerbation; R13.10 Dysphagia, unspecified; E66.01 Morbid (severe) obesity due to excess calories; J44.0 Chronic obstructive pulmonary disease with (acute) lower respiratory infection; I11.0 Hypertensive heart disease with heart failure; K21.9 Gastro-esophageal reflux disease without esophagitis; Z87.891 Personal history of nicotine dependence; E78.00 Pure hypercholesterolemia, unspecified; I25.10 Atherosclerotic heart disease of native coronary artery without angina pectoris; Z95.5 Presence of coronary angioplasty implant and graft; F32.9 Major depressive disorder, single episode, unspecified; H60.90 Unspecified otitis externa, unspecified ear; J20.9 Acute bronchitis, unspecified; Z68.38 Body mass index [BMI] 38.0-38.9, adult; K11.1 Hypertrophy of salivary gland

== ENCOUNTER 2017-09-05 13:11 | Inpatient (IN) | payer OTHER, BC ==
[2017-09-05 14:24] VITALS: BMI 38.7
[2017-09-05] MEDS ORDERED: Albuterol 0.083% Inhal Sol (2.5 mg/3 mL) UD INH PRN (14:41)
[2017-09-05] MEDS: Albuterol-Ipratrop 3 mg / 0.5 (3 ml) UD INH SCH ×2 (15:58→19:25)
--- NOTE | 2017-09-05 17:58 | CP.PCM.CON ---
History of Present Illness - History of Present Illness History of Present Illness: 72 y/o female admitted with several days of feeling sick with cough, SOB and generalized malaise. She notes that she had throat pain and headaches several days ago, but feels better now. Being treated for COPD/ CHF as well as tracheobronchitis Allergies NKDA Past Medical Hx HTN GERD ROS see HPI Review of Systems - Constitutional Constitutional: As Per HPI - EENT Eyes: absent: As Per HPI, Blind Spots, Blurred Vision, Change in Vision, Decreased Night Vision, Diplopia, Discharge, Dry Eye, Exophthalmos, Floaters, Irritation, Itchy Eyes, Loss of Peripheral Vision, Pain, Photophobia, Requires Corrective Lenses, Sees Flashes, Spots in Vision, Tunnel Vision, Other Visual Disturbances, Loss of Vision, Other Ears: As Per HPI, Decreased Hearing. absent: Ear Discharge, Dizziness Nose/Mouth/Throat: As Per HPI - Breasts Breasts: absent: As Per HPI, Change in Shape, Mass, Pain, Nipple Discharge, Nipple Inversion, Skin Changes, Swelling, Other - Cardiovascular Cardiovascular: absent: As Per HPI, Acrocyanosis, Chest Pain, Chest Pain at Rest , Chest Pain with Activity, Claudication, Diaphoresis, Dyspnea, Dyspnea on Exertion, Edema, Irregular Heart Rhythm, Pain Radiating to Arm/Neck/Jaw, Leg Edema, Leg Ulcers, Lightheadedness, Orthopnea, Palpitations, Paroxysmal Nocturnal Dyspnea, Pedal Edema, Radiating Pain, Rapid Heart Rate, Slow Heart Rate, Syncope, Other - Respiratory Respiratory: As Per HPI, Cough, Dyspnea. absent: Hemoptysis - Gastrointestinal Gastrointestinal: absent: As Per HPI, Abdominal Pain, Belching, Bloating, Change in Bowel Habits, Change in Stool Character, Coffee Ground Emesis, Constipation, Cramping, Diarrhea, Dyspepsia, Dysphagia, Early Satiety, Excessive Flatus, Fecal Incontinence, Heartburn, Hematemesis, Hematochezia, Loose Stools, Melena, Nausea, Odynophagia, Temesmus, Vomiting, Other - Genitourinary Genitourinary: absent: As Per HPI, Change in Urinary Stream, Difficulty Urinating, Dysuria, Flank Pain, Hematuria, Pyuria, Nocturia, Urinary Incontinence, Urinary Frequency, Urinary Hesitance, Urinary Urgency, Voiding Freq/Small Amts, Freq UTI, Hx Renal/Bladder Calculi, Hx /Renal Surgery, Bladder Distension, Other - Reproductive: Female Reproductive:Female: absent: As Per HPI, Amenorrhea, Amenorrhea/ Control, Currently Menstual, Cycle <21 Days, Cycle >35 Days, Cycle Variable, Menses 1-7 Days, Menses >/= 8 Days, Menses Variable, Cycle > 4 Weeks Between, No Menses for 6 Months, Heavy Menses, Light Menses, Normal Menses, Spotting Between Cycles , S/P Hysterectomy, Menopausal, Post Menopausal, Premenarche, Abnormal Vaginal Bleeding, Dysmenorrhea, Dyspareunia, Genital Lesions, Genital Pruritis, Pelvic Pain, Prolapse Symptoms, Sexual Dysfunction, Vaginal Discharge, Vaginal Dryness , Vaginal Odor, Vaginal Pruritis, Other - Menstruation Menstruation: absent: As Per HPI, Amenorrhea, Amenorrhea/ Control, Currently Menstual, Cycle <21 Days, Cycle >35 Days, Cycle Variable, Menses 1-7 Days, Menses >/= 8 Days, Menses Variable, Cycle > 4 Weeks Between, No Menses for 6 Months, Heavy Menses, Light Menses, Normal Menses, Spotting Between Cycles , S/P Hysterectomy, Menopausal, Post Menopausal, Premenarche, Abnormal Vaginal Bleeding, Dysmenorrhea, Other - Musculoskeletal Musculoskeletal: absent: As Per HPI, Abnormal Gait, Arthralgias, Atrophy, Back Pain, Deformity, Joint Swelling, Limited Range of Motion, Loss of Height, Muscle Cramps, Muscle Weakness, Myalgias, Neck Pain, Numbness, Radiating Pain into Limb, Stiffness, Tingling, Other - Integumentary Integumentary: absent: As Per HPI, Acne, Alopecia, Bleeding Lesions, Change in Hair, Change in Nails, Change in Pigmentation, Changing Lesions, Dry Skin, Erythema, Furuncle, Hirsutism, Lesions, New Lesions, Non-Healing Lesions, Photosensitivity, Pruritus, Rash, Skin Pain, Skin Ulcer, Sores, Striae, Swelling , Unusual Bruising, Wounds, Jaundice, Other - Neurological Neurological: absent: As Per HPI, Abnormal Gait, Abnormal Hearing, Abnormal Movements, Abnormal Speech, Behavioral Changes, Burning Sensations, Confusion, Convulsions, Disequilibrium, Dizziness, Numbness, Focal Weakness, Frequent Falls , Headaches, Lack of Coordination, Loss of Vision, Memory Loss, Paresthesias, Radicular Pain, Restless Legs, Sensory Deficit, Syncope, Tingling, Tremor, Vertigo, Weakness, Other Visual Disturbances, Other - Psychiatric Psychiatric: absent: As Per HPI, Abnormal Sleep Pattern, Anhedonia, Anxiety, Auditory Hallucinations, Behavioral Changes, Change in Appetite, Change in Libido, Confusion, Depression, Difficulty Concentrating, Hallucinations, Homicidal Ideation, Hopelessness, Irritability, Memory Loss, Mood Swings, Panic Attacks, Paranoia, Suicidal Ideation, Visual Hallucinations, Tactile Hallucinations, Other - Endocrine Endocrine: absent: As Per HPI, Change in Body Appearance, Change in Libido, Cold Intolorance, Deepening of Voice, Excessive Sweating, Fatigue, Flushing, Heat Intolorance, Increase in Ring/Shoe/Hat Size, Palpitations, Polydipsia, Polyphagia, Polyuria, Other - Hematologic/Lymphatic Hematologic: absent: As Per HPI, Easy Bleeding, Easy Bruising, Lymphadenopathy, Other Past Patient History - Infectious Disease Hx of Infectious Diseases: None - Past Medical History & Family History Past Medical History?: Yes - Past Social History Smoking Status: Former Smoker - CARDIAC Hx Cardiac Disorders: Yes Hx Hypercholesterolemia: Yes Hx Hypertension: Yes - PULMONARY Hx Respiratory Disorders: Yes Hx Pneumonia: Yes - NEUROLOGICAL Hx Neurological Disorder: No - HEENT Hx HEENT Problems: No - RENAL Hx Chronic Kidney Disease: No - ENDOCRINE/METABOLIC Hx Endocrine Disorders: No - HEMATOLOGICAL/ONCOLOGICAL Hx Blood Disorders: No Hx AIDS: No Hx Human Immunodeficiency Virus (HIV): No - INTEGUMENTARY Hx Dermatological Problems: No - MUSCULOSKELETAL/RHEUMATOLOGICAL Hx Arthritis: Yes - GASTROINTESTINAL Hx Gastrointestinal Disorders: No - GENITOURINARY/GYNECOLOGICAL Hx Genitourinary Disorders: No - PSYCHIATRIC Hx Psychophysiologic Disorder: Yes Hx Substance Use: No - SURGICAL HISTORY Hx Surgeries: Yes Hx Section: Yes Hx Coronary Stent: Yes - ANESTHESIA Hx Anesthesia: Yes Hx Anesthesia Reactions: No Hx Malignant Hyperthermia: No Meds Allergies/Adverse Reactions: Allergies Allergy/AdvReac Type Severity Reaction Status Date / Time No Known Allergies Allergy Verified 09/05/17 14:09 - Medications Medications: Current Medications Albuterol Sulfate (Albuterol 0.083% Inhal Yanira (2.5 Mg/3 Ml) Ud) 2.5 mg INH RQ4 PRN PRN Reason: Shortness of Breath Albuterol/Ipratropium (Duoneb 3 Mg/0.5 Mg (3 Ml) Ud) 3 ml INH RQID [facility] Last Admin: 09/05/17 15:58 Dose: 3 ml Calcium Carbonate (Oscal) 500 mg PO DAILY [facility] Enoxaparin Sodium (Lovenox) 40 mg SC DAILY [facility] PRN Reason: Protocol Escitalopram Oxalate (Lexapro) 20 mg PO DAILY [facility] Furosemide (Lasix) 60 mg IV DAILY [facility] Ampicillin Sodium/Sulbactam (Sodium 3 gm/ Sodium Chloride) 100 mls @ 100 mls/ hr IVPB 0600,1200,1800,0000 [facility] PRN Reason: Protocol Last Admin: 09/05/17 17:09 Dose: 100 mls/hr Methylprednisolone (Solu-Medrol) 60 mg IVP Q8 [facility] Last Admin: 09/05/17 16:02 Dose: 60 mg Pantoprazole Sodium (Protonix Ec Tab) 40 mg PO DAILY [facility] Fluticasone/Salmeterol (Advair Diskus 250/50) 1 puff IH Q12 [facility] Tiotropium [place] (Spiriva) 18 mcg INH DAILY [facility] Physical Exam - Constitutional Appears: No Acute Distress, Chronically Ill - Head Exam Head Exam: ATRAUMATIC - Eye Exam Eye Exam: PERRL. absent: Scleral icterus - ENT Exam ENT Exam: Mucous Membranes Dry, Normal Oropharynx - Neck Exam Neck exam: Negative for: Lymphadenopathy - Respiratory Exam Respiratory Exam: Decreased Breath Sounds, Rhonchi - Cardiovascular Exam Cardiovascular Exam: REGULAR RHYTHM, +S1, +S2 - GI/Abdominal Exam GI & Abdominal Exam: Diminished Bowel Sounds, Distended, Soft. absent: Organomegaly, Rebound, Rigid, Tenderness - Rectal Exam Rectal Exam: Deferred - Exam Exam: NORMAL INSPECTION - Extremities Exam Extremities exam: Positive for: pedal pulses present. Negative for: calf tenderness, pedal edema, tenderness - Back Exam Back exam: absent: CVA tenderness (L), CVA tenderness (R), paraspinal tenderness - Neurological Exam Neurological exam: Alert, CN II-XII Intact, Oriented x3, Reflexes Normal - Psychiatric Exam Psychiatric exam: Normal Mood - Skin Skin Exam: Dry Results - Vital Signs Recent Vital Signs: Last Vital Signs Temp Pulse 79 09/05/17 16:00 Resp BP Pulse Ox Assessment & Plan (1) Acute rhinosinusitis Status: Acute Priority: High (2) Bronchitis Status: Acute (3) Chronic bronchitis with acute exacerbation Status: Acute (4) Cough Status: Acute Priority: High (5) Exacerbation of asthma Status: Acute (6) Mastoiditis Status: Acute (7) Pneumonia Status: Acute - Assessment and Plan (Free Text) Assessment: improving slowly iv rx to continue
[2017-09-05] MEDS: Fluticasone-Salmeterol 250-50mcg Diskus IH SCH (21:49)
[2017-09-06] MEDS: Albuterol-Ipratrop 3 mg / 0.5 (3 ml) UD INH SCH (07:28)
[2017-09-06] MEDS: Fluticasone-Salmeterol 250-50mcg Diskus IH SCH ×2 (08:30→20:47)
[2017-09-06] MEDS: Pantoprazole 40 mg EC Tab PO SCH (08:31)
[2017-09-06] MEDS: Enoxaparin 40 mg Syringe SC SCH (08:31)
[2017-09-06] MEDS: Tiotropium 18 mcg Cap For Inhalation INH SCH (08:32)
[2017-09-06] MEDS ORDERED: methylPREDNISolone 40 MG in Sodium Chloride 0.9% 50 ML IV SCH (11:00)
--- NOTE | 2017-09-06 11:05 | CP.PCM.CON ---
History of Present Illness - History of Present Illness History of Present Illness: Follow up consultation from acute medical floor. Has been on treatment for exacerbation of chronic bronchitis with significant bronchospasm. She has been on relatively high dose corticosteroid therapy along with aerosol/nebulized treatments. Her improvement has been slow, but she was recently started on LABA/ ICS and LAMA and appears to continue to show steady improvement. Past Patient History - Infectious Disease Hx of Infectious Diseases: None - Past Medical History & Family History Past Medical History?: Yes - Past Social History Smoking Status: Former Smoker Chewing Tobacco Use: No Cigar Use: No Alcohol: Social Drugs: Denies - CARDIAC Hx Hypercholesterolemia: Yes Hx Hypertension: Yes - PULMONARY Hx Bronchitis: Yes Hx Chronic Obstructive Pulmonary Disease (COPD): Yes Hx Pneumonia: Yes - NEUROLOGICAL Hx Neurological Disorder: No - HEENT Hx HEENT Problems: No - RENAL Hx Chronic Kidney Disease: No - ENDOCRINE/METABOLIC Hx Endocrine Disorders: No - HEMATOLOGICAL/ONCOLOGICAL Hx Blood Disorders: No Hx Human Immunodeficiency Virus (HIV): No - INTEGUMENTARY Hx Dermatological Problems: No - MUSCULOSKELETAL/RHEUMATOLOGICAL Hx Arthritis: Yes - GASTROINTESTINAL Hx Gastrointestinal Disorders: No - GENITOURINARY/GYNECOLOGICAL Hx Genitourinary Disorders: No - PSYCHIATRIC Hx Psychophysiologic Disorder: Yes Hx Substance Use: No - SURGICAL HISTORY Hx Surgeries: Yes Hx Section: Yes Hx Coronary Stent: Yes - ANESTHESIA Hx Anesthesia: Yes Hx Anesthesia Reactions: No Hx Malignant Hyperthermia: No Meds Allergies/Adverse Reactions: Allergies Allergy/AdvReac Type Severity Reaction Status Date / Time No Known Allergies Allergy Verified 09/05/17 14:09 - Medications Medications: Current Medications Albuterol Sulfate (Albuterol 0.083% Inhal Yanira (2.5 Mg/3 Ml) Ud) 2.5 mg INH RQ4 PRN PRN Reason: Shortness of Breath Albuterol/Ipratropium (Duoneb 3 Mg/0.5 Mg (3 Ml) Ud) 3 ml INH RQID [facility] Last Admin: 09/06/17 07:28 Dose: 3 ml Calcium Carbonate (Oscal) 500 mg PO DAILY [facility] Last Admin: 09/06/17 08:31 Dose: 500 mg Enoxaparin Sodium (Lovenox) 40 mg SC DAILY [facility] PRN Reason: Protocol Last Admin: 09/06/17 08:31 Dose: 40 mg Escitalopram Oxalate (Lexapro) 20 mg PO DAILY [facility] Last Admin: 09/06/17 08:31 Dose: 20 mg Furosemide (Lasix) 60 mg IV DAILY [facility] Last Admin: 09/06/17 08:30 Dose: 60 mg Ampicillin Sodium/Sulbactam (Sodium 3 gm/ Sodium Chloride) 100 mls @ 100 mls/ hr IVPB 0600,1200,1800,0000 [facility] PRN Reason: Protocol Last Admin: 09/06/17 05:33 Dose: 100 mls/hr Methylprednisolone 40 mg/ (Sodium Chloride) 50 mls @ 100 mls/hr IV Q8H [facility] Methylprednisolone (Solu-Medrol) 40 mg IVP Q8 [facility] Pantoprazole Sodium (Protonix Ec Tab) 40 mg PO DAILY [facility] Last Admin: 09/06/17 08:31 Dose: 40 mg Fluticasone/Salmeterol (Advair Diskus 250/50) 1 puff IH Q12 [facility] Last Admin: 09/06/17 08:30 Dose: 1 puff Tiotropium [place] (Spiriva) 18 mcg INH DAILY [facility] Last Admin: 09/06/17 08:32 Dose: 18 mcg Physical Exam - Additional Findings Additional findings: Seated in a bedside chair, returned recently from PT. +dependant edema both lower extremities. No cyanosis. No calf tenderness or palpable venous cords. Pharynx is pink and moist, no exudate. Neck is supple and trachea midline. No dullness on chest percussion. Breath sounds are diminished bilaterally. Scattered expiratory wheezes are still present bilaterally. Rare dry rales in lower lobes. No bronchial breath sounds or egophony. Heart sounds are slightly distant, rhythm is regular. Results - Vital Signs Recent Vital Signs: Last Vital Signs Temp 98.1 F 09/06/17 08:59 Pulse 71 09/06/17 08:59 Resp 20 09/06/17 08:59 BP 142/91 H 09/06/17 08:59 Pulse Ox 95 09/06/17 08:59 - Labs Result Diagrams: 09/06/17 10:40 Assessment & Plan (1) Chronic bronchitis with acute exacerbation Status: Acute Priority: High (2) Posterior rhinorrhea Status: Acute Priority: High - Assessment and Plan (Free Text) Plan: Will decrease parenteral corticosteroid dose to 30MG Q8H. Will discontinue scheduled nebulizer treatments and continue LABA/ICS and LAMA. Neb treatment will be PRN only starting today. Remains on parenteral antibiotics. Not appropriate for pulmonary function study at this time. - Date & Time Date: 09/06/17 Time: 11:06
--- NOTE | 2017-09-06 11:16 | CP.PCM.HP ---
History of Present Illness - History of Present Illness History of Present Illness: 72 y/o lady with hx of depression, htn, gerd, morbid obesity presented in ER with severe dyspnea of sudden onset, associated with cough, sob, tachypnea and choking sensation. Exacerbation of COPD. Patient improved on iv steroid and antibx. Will follow in TCU for PT and continuation of the rx. Present on Admission - Present on Admission Any Indicators Present on Admission: No Review of Systems - Constitutional Constitutional: Fatigue, Weight Gain - EENT Eyes: As Per HPI - Cardiovascular Cardiovascular: Dyspnea, Dyspnea on Exertion - Respiratory Respiratory: Dyspnea, Dyspnea on Exertion, Wheezing, Stridor, Chest Congestion - Gastrointestinal Gastrointestinal: As Per HPI - Musculoskeletal Musculoskeletal: Arthralgias, Joint Swelling - Neurological Neurological: As Per HPI - Psychiatric Psychiatric: Depression - Endocrine Endocrine: As Per HPI Past Patient History - Infectious Disease Hx of Infectious Diseases: None - Past Medical History & Family History Past Medical History?: Yes - Past Social History Smoking Status: Former Smoker - CARDIAC Hx Cardiac Disorders: Yes Hx Hypercholesterolemia: Yes Hx Hypertension: Yes - PULMONARY Hx Respiratory Disorders: Yes Hx Pneumonia: Yes - NEUROLOGICAL Hx Neurological Disorder: No - HEENT Hx HEENT Problems: No - RENAL Hx Chronic Kidney Disease: No - ENDOCRINE/METABOLIC Hx Endocrine Disorders: No - HEMATOLOGICAL/ONCOLOGICAL Hx Blood Disorders: No Hx AIDS: No Hx Human Immunodeficiency Virus (HIV): No - INTEGUMENTARY Hx Dermatological Problems: No - MUSCULOSKELETAL/RHEUMATOLOGICAL Hx Arthritis: Yes - GASTROINTESTINAL Hx Gastrointestinal Disorders: No - GENITOURINARY/GYNECOLOGICAL Hx Genitourinary Disorders: No - PSYCHIATRIC Hx Psychophysiologic Disorder: Yes Hx Substance Use: No - SURGICAL HISTORY Hx Surgeries: Yes Hx Section: Yes Hx Coronary Stent: Yes - ANESTHESIA Hx Anesthesia: Yes Hx Anesthesia Reactions: No Hx Malignant Hyperthermia: No Meds Allergies/Adverse Reactions: Allergies Allergy/AdvReac Type Severity Reaction Status Date / Time No Known Allergies Allergy Verified 09/05/17 14:09 Physical Exam - Constitutional Appears: Chronically Ill - Head Exam Head Exam: ATRAUMATIC, NORMAL INSPECTION, NORMOCEPHALIC - Eye Exam Eye Exam: Normal appearance - ENT Exam ENT Exam: Mucous Membranes Moist - Neck Exam Neck exam: Positive for: Full Rom - Respiratory Exam Respiratory Exam: Decreased Breath Sounds - Cardiovascular Exam Cardiovascular Exam: REGULAR RHYTHM, +S1, +S2 - GI/Abdominal Exam GI & Abdominal Exam: Normal Bowel Sounds - Extremities Exam Extremities exam: Positive for: pedal edema - Neurological Exam Neurological exam: Alert, CN II-XII Intact, Oriented x3 - Psychiatric Exam Psychiatric exam: Depressed Results - Vital Signs Recent Vital Signs: Last Vital Signs Temp 98.1 F 09/06/17 08:59 Pulse 71 09/06/17 08:59 Resp 20 09/06/17 08:59 BP 142/91 H 09/06/17 08:59 Pulse Ox 95 09/06/17 08:59 - Labs Result Diagrams: 09/06/17 10:40 Assessment & Plan (1) Asthmatic bronchitis Status: Acute (2) Exacerbation of asthma Status: Acute (3) GERD (gastroesophageal reflux disease) Status: Chronic (4) Mastoiditis Status: Suspected (5) COPD (chronic obstructive pulmonary disease) Status: Chronic (6) Obesity (BMI 30-39.9) Status: Chronic (7) Debility Status: Acute (8) Debility Status: Acute - Assessment and Plan (Free Text) Plan: Continue present rx.
[2017-09-06 11:17] LABS: BLOOD UREA NITROGEN 16 mg/dl (7-17); CALCIUM 8.1 mg/dL (8.4-10.2); GFR AFRICAN-AMERICAN > 60; GFR NON-AFRICAN AMERICAN > 60
[2017-09-06] MEDS: MethylPREDNISolone 40 mg Vial IVP SCH ×2 (11:20→16:52)
[2017-09-07] MEDS: MethylPREDNISolone 40 mg Vial IVP SCH ×3 (01:45→17:06)
[2017-09-07] MEDS: Fluticasone-Salmeterol 250-50mcg Diskus IH SCH ×2 (08:48→20:19)
[2017-09-07] MEDS: Enoxaparin 40 mg Syringe SC SCH (08:50)
[2017-09-07] MEDS: Pantoprazole 40 mg EC Tab PO SCH (08:50)
[2017-09-07] MEDS: Tiotropium 18 mcg Cap For Inhalation INH SCH (08:51)
--- NOTE | 2017-09-07 16:32 | CP.PCM.PN ---
Subjective - Date & Time of Evaluation Date of Evaluation: 09/07/17 Time of Evaluation: 16:31 - Subjective Subjective: General condition improving Objective - Vital Signs/Intake and Output Vital Signs (last 24 hours): Temp Pulse Resp BP Pulse Ox 98.1 F 66 20 148/75 97 09/07/17 15:41 09/07/17 15:41 09/07/17 15:41 09/07/17 15:41 09/07/17 15:41 - Medications Medications: Current Medications Albuterol Sulfate (Albuterol 0.083% Inhal Yanira (2.5 Mg/3 Ml) Ud) 2.5 mg INH RQ4 PRN PRN Reason: Shortness of Breath Calcium Carbonate (Oscal) 500 mg PO DAILY [facility] Last Admin: 09/07/17 08:48 Dose: 500 mg Enoxaparin Sodium (Lovenox) 40 mg SC DAILY [facility] PRN Reason: Protocol Last Admin: 09/07/17 08:50 Dose: 40 mg Escitalopram Oxalate (Lexapro) 20 mg PO DAILY [facility] Last Admin: 09/07/17 08:48 Dose: 20 mg Furosemide (Lasix) 60 mg IV DAILY [facility] Last Admin: 09/07/17 08:49 Dose: 60 mg Ampicillin Sodium/Sulbactam (Sodium 3 gm/ Sodium Chloride) 100 mls @ 100 mls/ hr IVPB 0600,1200,1800,0000 [facility] PRN Reason: Protocol Last Admin: 09/07/17 12:24 Dose: 100 mls/hr Methylprednisolone (Solu-Medrol) 30 mg IVP Q8 [facility] Pantoprazole Sodium (Protonix Ec Tab) 40 mg PO DAILY [facility] Last Admin: 09/07/17 08:50 Dose: 40 mg Fluticasone/Salmeterol (Advair Diskus 250/50) 1 puff IH Q12 [facility] Last Admin: 09/07/17 08:48 Dose: 1 puff Tiotropium [place] (Spiriva) 18 mcg INH DAILY [facility] Last Admin: 09/07/17 08:51 Dose: 18 mcg - Labs Labs: 09/06/17 10:40 - Constitutional Appears: Chronically Ill - Head Exam Head Exam: NORMAL INSPECTION - Eye Exam Eye Exam: Normal appearance - ENT Exam ENT Exam: Mucous Membranes Moist - Neck Exam Neck Exam: Full ROM - Respiratory Exam Respiratory Exam: Decreased Breath Sounds - Cardiovascular Exam Cardiovascular Exam: REGULAR RHYTHM, +S1, +S2 - GI/Abdominal Exam GI & Abdominal Exam: Soft, Normal Bowel Sounds - Extremities Exam Extremities Exam: Full ROM - Neurological Exam Neurological Exam: Alert, Awake, CN II-XII Intact - Psychiatric Exam Psychiatric exam: Normal Affect - Skin Skin Exam: Normal Color Assessment and Plan (1) Asthmatic bronchitis Status: Acute (2) Exacerbation of asthma Status: Acute (3) GERD (gastroesophageal reflux disease) Status: Chronic (4) Mastoiditis Status: Suspected (5) COPD (chronic obstructive pulmonary disease) Status: Chronic (6) Obesity (BMI 30-39.9) Status: Chronic (7) Debility Status: Acute (8) Debility Status: Acute - Assessment and Plan (Free Text) Plan: Continue present rx.
[2017-09-07] MEDS ORDERED: methylPREDNISolone 30 MG in Sodium Chloride 0.9% 50 ML IV SCH (17:00)
[2017-09-08] MEDS: MethylPREDNISolone 40 mg Vial IVP SCH ×3 (00:17→17:33)
[2017-09-08 07:23] LABS: BLOOD UREA NITROGEN 15 mg/dl (7-17); CALCIUM 7.9 mg/dL (8.4-10.2); GFR AFRICAN-AMERICAN > 60; GFR NON-AFRICAN AMERICAN > 60
[2017-09-08] MEDS: Pantoprazole 40 mg EC Tab PO SCH (08:12)
[2017-09-08] MEDS: Tiotropium 18 mcg Cap For Inhalation INH SCH (08:12)
[2017-09-08] MEDS: Fluticasone-Salmeterol 250-50mcg Diskus IH SCH ×2 (08:12→21:29)
[2017-09-08] MEDS: Enoxaparin 40 mg Syringe SC SCH (08:12)
--- NOTE | 2017-09-08 14:29 | CP.PCM.PN ---
Subjective - Date & Time of Evaluation Date of Evaluation: 09/08/17 Time of Evaluation: 14:29 - Subjective Subjective: Improving well Objective - Vital Signs/Intake and Output Vital Signs (last 24 hours): Temp Pulse Resp BP Pulse Ox 97.5 F L 61 20 147/58 L 96 09/08/17 08:00 09/08/17 12:28 09/08/17 08:00 09/08/17 12:28 09/08/17 08:00 - Medications Medications: Current Medications Albuterol Sulfate (Albuterol 0.083% Inhal [place] (2.5 Mg/3 Ml) Ud) 2.5 mg INH RQ4 PRN PRN Reason: Shortness of Breath Amlodipine Besylate (Norvasc) 5 mg PO DAILY [facility] Last Admin: 09/08/17 12:28 Dose: 5 mg Calcium Carbonate (Oscal) 500 mg PO DAILY [facility] Last Admin: 09/08/17 08:12 Dose: 500 mg Enoxaparin Sodium (Lovenox) 40 mg SC DAILY [facility] PRN Reason: Protocol Last Admin: 09/08/17 08:12 Dose: 40 mg Escitalopram Oxalate (Lexapro) 20 mg PO DAILY [facility] Last Admin: 09/08/17 08:12 Dose: 20 mg Furosemide (Lasix) 20 mg PO DAILY [facility] Last Admin: 09/08/17 08:12 Dose: 20 mg Ampicillin Sodium/Sulbactam (Sodium 3 gm/ Sodium Chloride) 100 mls @ 100 mls/ hr IVPB 0600,1200,1800,0000 [facility] PRN Reason: Protocol Last Admin: 09/08/17 12:17 Dose: 100 mls/hr Methylprednisolone (Solu-Medrol) 30 mg IVP Q8 [facility] Last Admin: 09/08/17 08:13 Dose: 30 mg Pantoprazole Sodium (Protonix Ec Tab) 40 mg PO DAILY [facility] Last Admin: 09/08/17 08:12 Dose: 40 mg Fluticasone/Salmeterol (Advair Diskus 250/50) 1 puff IH Q12 [facility] Last Admin: 09/08/17 08:12 Dose: 1 puff Tiotropium [place] (Spiriva) 18 mcg INH DAILY [facility] Last Admin: 09/08/17 08:12 Dose: 18 mcg - Labs Labs: 09/08/17 05:30 - Constitutional Appears: Chronically Ill - Head Exam Head Exam: NORMAL INSPECTION - Eye Exam Eye Exam: Normal appearance - ENT Exam ENT Exam: Mucous Membranes Moist, Normal Exam - Neck Exam Neck Exam: Full ROM - Respiratory Exam Respiratory Exam: Clear to Ausculation Bilateral - Cardiovascular Exam Cardiovascular Exam: REGULAR RHYTHM, +S1, +S2 - GI/Abdominal Exam GI & Abdominal Exam: Soft, Normal Bowel Sounds - Extremities Exam Extremities Exam: Full ROM - Neurological Exam Neurological Exam: Alert, Awake, CN II-XII Intact - Psychiatric Exam Psychiatric exam: Normal Mood - Skin Skin Exam: Normal Color Assessment and Plan (1) Asthmatic bronchitis Status: Acute (2) Exacerbation of asthma Status: Acute (3) GERD (gastroesophageal reflux disease) Status: Chronic (4) Mastoiditis Status: Suspected (5) COPD (chronic obstructive pulmonary disease) Status: Chronic (6) Obesity (BMI 30-39.9) Status: Chronic (7) Debility Status: Acute (8) Debility Status: Acute - Assessment and Plan (Free Text) Plan: Continue present
[2017-09-09] MEDS: MethylPREDNISolone 40 mg Vial IVP SCH ×3 (01:47→22:12)
[2017-09-09] MEDS: Fluticasone-Salmeterol 250-50mcg Diskus IH SCH ×2 (08:12→22:11)
[2017-09-09] MEDS: Pantoprazole 40 mg EC Tab PO SCH (08:13)
[2017-09-09] MEDS: Tiotropium 18 mcg Cap For Inhalation INH SCH (08:13)
[2017-09-09] MEDS: Enoxaparin 40 mg Syringe SC SCH (08:13)
--- NOTE | 2017-09-09 11:12 | CP.PCM.PN ---
Subjective - Date & Time of Evaluation Date of Evaluation: 09/09/17 Time of Evaluation: 11:09 - Subjective Subjective: Progressing steadily. Vital signs are stable. No complaints of SOB. Occasional non-productive cough. Breath sounds are diminished bilaterally w/o audible wheeze. Rare dry basal rales posteriorly. Solumedrol reduced to 30MG Q12H for today. Will reduce again tomorrow to once daily and then stop. Pulmonary function study requested. To remain on LABA/LAMA/ICS Approaching discharge. Objective - Vital Signs/Intake and Output Vital Signs (last 24 hours): Temp Pulse Resp BP Pulse Ox 97.7 F 78 18 140/80 96 09/09/17 07:40 09/09/17 08:42 09/09/17 07:40 09/09/17 08:42 09/09/17 08:42 - Medications Medications: Current Medications Albuterol Sulfate (Albuterol 0.083% Inhal Yanira (2.5 Mg/3 Ml) Ud) 2.5 mg INH RQ4 PRN PRN Reason: Shortness of Breath Amlodipine Besylate (Norvasc) 5 mg PO DAILY [facility] Last Admin: 09/09/17 08:13 Dose: 5 mg Calcium Carbonate (Oscal) 500 mg PO DAILY [facility] Last Admin: 09/09/17 08:13 Dose: 500 mg Escitalopram Oxalate (Lexapro) 20 mg PO DAILY [facility] Last Admin: 09/09/17 08:13 Dose: 20 mg Furosemide (Lasix) 20 mg PO DAILY [facility] Last Admin: 09/09/17 08:12 Dose: 20 mg Ampicillin Sodium/Sulbactam (Sodium 3 gm/ Sodium Chloride) 100 mls @ 100 mls/ hr IVPB 0600,1200,1800,0000 [facility] PRN Reason: Protocol Last Admin: 09/09/17 05:19 Dose: 100 mls/hr Methylprednisolone (Solu-Medrol) 30 mg IVP Q12 [facility] Pantoprazole Sodium (Protonix Ec Tab) 40 mg PO DAILY [facility] Last Admin: 09/09/17 08:13 Dose: 40 mg Fluticasone/Salmeterol (Advair Diskus 250/50) 1 puff IH Q12 [facility] Last Admin: 09/09/17 08:12 Dose: 1 puff Tiotropium [place] (Spiriva) 18 mcg INH DAILY [facility] Last Admin: 09/09/17 08:13 Dose: 18 mcg - Labs Labs: 09/08/17 05:30 Assessment and Plan (1) Chronic bronchitis with acute exacerbation Status: Acute (2) Posterior rhinorrhea Status: Acute
--- NOTE | 2017-09-09 13:54 | CP.PCM.PN ---
Subjective - Date & Time of Evaluation Date of Evaluation: 09/09/17 Time of Evaluation: 13:54 - Subjective Subjective: Improving on present rx Objective - Vital Signs/Intake and Output Vital Signs (last 24 hours): Temp Pulse Resp BP Pulse Ox 97.7 F 78 18 140/80 96 09/09/17 07:40 09/09/17 08:42 09/09/17 07:40 09/09/17 08:42 09/09/17 08:42 - Medications Medications: Current Medications Albuterol Sulfate (Albuterol 0.083% Inhal Yanira (2.5 Mg/3 Ml) Ud) 2.5 mg INH RQ4 PRN PRN Reason: Shortness of Breath Amlodipine Besylate (Norvasc) 5 mg PO DAILY [facility] Last Admin: 09/09/17 08:13 Dose: 5 mg Calcium Carbonate (Oscal) 500 mg PO DAILY [facility] Last Admin: 09/09/17 08:13 Dose: 500 mg Escitalopram Oxalate (Lexapro) 20 mg PO DAILY [facility] Last Admin: 09/09/17 08:13 Dose: 20 mg Furosemide (Lasix) 20 mg PO DAILY [facility] Last Admin: 09/09/17 08:12 Dose: 20 mg Ampicillin Sodium/Sulbactam (Sodium 3 gm/ Sodium Chloride) 100 mls @ 100 mls/ hr IVPB 0600,1200,1800,0000 [facility] PRN Reason: Protocol Last Admin: 09/09/17 11:46 Dose: 100 mls/hr Methylprednisolone (Solu-Medrol) 30 mg IVP Q12 [facility] Pantoprazole Sodium (Protonix Ec Tab) 40 mg PO DAILY [facility] Last Admin: 09/09/17 08:13 Dose: 40 mg Fluticasone/Salmeterol (Advair Diskus 250/50) 1 puff IH Q12 [facility] Last Admin: 09/09/17 08:12 Dose: 1 puff Tiotropium [place] (Spiriva) 18 mcg INH DAILY [facility] Last Admin: 09/09/17 08:13 Dose: 18 mcg - Labs Labs: 09/08/17 05:30 - Constitutional Appears: No Acute Distress, Chronically Ill - Head Exam Head Exam: NORMAL INSPECTION - Eye Exam Eye Exam: Normal appearance - ENT Exam ENT Exam: Mucous Membranes Moist - Respiratory Exam Respiratory Exam: Decreased Breath Sounds - Cardiovascular Exam Cardiovascular Exam: REGULAR RHYTHM, +S1, +S2 - GI/Abdominal Exam GI & Abdominal Exam: Soft, Normal Bowel Sounds - Extremities Exam Extremities Exam: Normal Inspection - Neurological Exam Neurological Exam: Alert, Awake, CN II-XII Intact, Normal Gait, Oriented x3 - Psychiatric Exam Psychiatric exam: Normal Affect - Skin Skin Exam: Normal Color Assessment and Plan (1) Asthmatic bronchitis Status: Acute (2) Exacerbation of asthma Status: Acute (3) GERD (gastroesophageal reflux disease) Status: Chronic (4) Mastoiditis Status: Suspected (5) COPD (chronic obstructive pulmonary disease) Status: Chronic (6) Obesity (BMI 30-39.9) Status: Chronic (7) Debility Status: Acute (8) Debility Status: Acute - Assessment and Plan (Free Text) Plan: Continue present rx.
[2017-09-09] MEDS ORDERED: methylPREDNISolone 30 MG in Sodium Chloride 0.9% 50 ML IV SCH (21:00)
[2017-09-10] MEDS: Fluticasone-Salmeterol 250-50mcg Diskus IH SCH ×2 (08:21→21:08)
[2017-09-10] MEDS: Tiotropium 18 mcg Cap For Inhalation INH SCH (08:22)
[2017-09-10] MEDS: Pantoprazole 40 mg EC Tab PO SCH (08:23)
[2017-09-10] MEDS: MethylPREDNISolone 40 mg Vial IVP SCH (08:23)
[2017-09-10 17:31] VITALS: RESP 20
--- NOTE | 2017-09-10 18:49 | CP.PCM.PN ---
Subjective - Date & Time of Evaluation Date of Evaluation: 09/10/17 Time of Evaluation: 18:49 - Subjective Subjective: Patient improving well on present rx Objective - Vital Signs/Intake and Output Vital Signs (last 24 hours): Temp Pulse Resp BP Pulse Ox 98.1 F 68 20 142/74 94 L 09/10/17 17:30 09/10/17 17:30 09/10/17 17:30 09/10/17 17:30 09/10/17 17:30 - Medications Medications: Current Medications Albuterol Sulfate (Albuterol 0.083% Inhal Yanira (2.5 Mg/3 Ml) Ud) 2.5 mg INH RQ4 PRN PRN Reason: Shortness of Breath Amlodipine Besylate (Norvasc) 5 mg PO DAILY [facility] Last Admin: 09/10/17 08:23 Dose: 5 mg Calcium Carbonate (Oscal) 500 mg PO DAILY [facility] Last Admin: 09/10/17 08:22 Dose: 500 mg Enoxaparin Sodium (Lovenox) 40 mg SC DAILY [facility] PRN Reason: Protocol Escitalopram Oxalate (Lexapro) 20 mg PO DAILY [facility] Last Admin: 09/10/17 08:22 Dose: 20 mg Furosemide (Lasix) 20 mg PO DAILY [facility] Last Admin: 09/10/17 08:22 Dose: 20 mg Ampicillin Sodium/Sulbactam (Sodium 3 gm/ Sodium Chloride) 100 mls @ 100 mls/ hr IVPB 0600,1200,1800,0000 [facility] PRN Reason: Protocol Last Admin: 09/10/17 17:07 Dose: 100 mls/hr Methylprednisolone (Medrol) 8 mg PO BID [facility] Last Admin: 09/10/17 17:08 Dose: 8 mg Pantoprazole Sodium (Protonix Ec Tab) 40 mg PO DAILY [facility] Last Admin: 09/10/17 08:23 Dose: 40 mg Fluticasone/Salmeterol (Advair Diskus 250/50) 1 puff IH Q12 [facility] Last Admin: 09/10/17 08:21 Dose: 1 puff Tiotropium [place] (Spiriva) 18 mcg INH DAILY [facility] Last Admin: 09/10/17 08:22 Dose: 18 mcg - Labs Labs: 09/08/17 05:30 - Constitutional Appears: No Acute Distress - Head Exam Head Exam: ATRAUMATIC, NORMAL INSPECTION, NORMOCEPHALIC - Eye Exam Eye Exam: Normal appearance - Neck Exam Neck Exam: Full ROM - Respiratory Exam Respiratory Exam: Clear to Ausculation Bilateral - Cardiovascular Exam Cardiovascular Exam: +S1, +S2 - GI/Abdominal Exam GI & Abdominal Exam: Soft, Normal Bowel Sounds - Extremities Exam Extremities Exam: Normal Inspection - Neurological Exam Neurological Exam: Alert, Awake, CN II-XII Intact, Oriented x3 - Psychiatric Exam Psychiatric exam: Normal Affect - Skin Skin Exam: Normal Color Assessment and Plan (1) Asthmatic bronchitis Status: Acute (2) Exacerbation of asthma Status: Acute (3) GERD (gastroesophageal reflux disease) Status: Chronic (4) Mastoiditis Status: Suspected (5) COPD (chronic obstructive pulmonary disease) Status: Chronic (6) Obesity (BMI 30-39.9) Status: Chronic (7) Debility Status: Acute (8) Debility Status: Acute - Assessment and Plan (Free Text) Plan: Continue present rx
[2017-09-11 07:23] LABS: CALCIUM 7.8 mg/dL (8.4-10.2); GFR AFRICAN-AMERICAN > 60; GFR NON-AFRICAN AMERICAN > 60
[2017-09-11 07:54] LABS: BLOOD UREA NITROGEN 17 mg/dl (7-17)
[2017-09-11] MEDS: Pantoprazole 40 mg EC Tab PO SCH (08:26)
[2017-09-11] MEDS: Fluticasone-Salmeterol 250-50mcg Diskus IH SCH ×2 (08:26→20:50)
[2017-09-11] MEDS: Tiotropium 18 mcg Cap For Inhalation INH SCH (08:26)
[2017-09-11] MEDS: Enoxaparin 40 mg Syringe SC SCH (08:27)
--- NOTE | 2017-09-11 15:30 | CP.PCM.PN ---
Subjective - Date & Time of Evaluation Date of Evaluation: 09/11/17 Time of Evaluation: 15:29 - Subjective Subjective: Comfortable Objective - Vital Signs/Intake and Output Vital Signs (last 24 hours): Temp Pulse Resp BP Pulse Ox 97.7 F 56 L 20 149/76 94 L 09/11/17 08:44 09/11/17 08:44 09/11/17 08:44 09/11/17 08:44 09/11/17 08:44 - Medications Medications: Current Medications Albuterol Sulfate (Albuterol 0.083% Inhal Yanira (2.5 Mg/3 Ml) Ud) 2.5 mg INH RQ4 PRN PRN Reason: Shortness of Breath Amlodipine Besylate (Norvasc) 5 mg PO DAILY [facility] Last Admin: 09/11/17 08:27 Dose: 5 mg Calcium Carbonate (Oscal) 500 mg PO DAILY [facility] Last Admin: 09/11/17 08:27 Dose: 500 mg Enoxaparin Sodium (Lovenox) 40 mg SC DAILY [facility] PRN Reason: Protocol Last Admin: 09/11/17 08:27 Dose: 40 mg Escitalopram Oxalate (Lexapro) 20 mg PO DAILY [facility] Last Admin: 09/11/17 08:26 Dose: 20 mg Furosemide (Lasix) 20 mg PO DAILY [facility] Last Admin: 09/11/17 08:26 Dose: 20 mg Ampicillin Sodium/Sulbactam (Sodium 3 gm/ Sodium Chloride) 100 mls @ 100 mls/ hr IVPB 0600,1200,1800,0000 [facility] PRN Reason: Protocol Last Admin: 09/11/17 11:58 Dose: 100 mls/hr Methylprednisolone (Medrol) 8 mg PO BID [facility] Last Admin: 09/11/17 08:26 Dose: 8 mg Pantoprazole Sodium (Protonix Ec Tab) 40 mg PO DAILY [facility] Last Admin: 09/11/17 08:26 Dose: 40 mg Fluticasone/Salmeterol (Advair Diskus 250/50) 1 puff IH Q12 [facility] Last Admin: 09/11/17 08:26 Dose: 1 puff Tiotropium [place] (Spiriva) 18 mcg INH DAILY [facility] Last Admin: 09/11/17 08:26 Dose: 18 mcg - Labs Labs: 09/11/17 05:50 - Constitutional Appears: No Acute Distress - Head Exam Head Exam: ATRAUMATIC, NORMAL INSPECTION, NORMOCEPHALIC - Eye Exam Eye Exam: Normal appearance - Respiratory Exam Respiratory Exam: Clear to Ausculation Bilateral - Cardiovascular Exam Cardiovascular Exam: REGULAR RHYTHM, +S1, +S2 - GI/Abdominal Exam GI & Abdominal Exam: Normal Bowel Sounds - Neurological Exam Neurological Exam: Alert, Awake, CN II-XII Intact, Oriented x3 - Psychiatric Exam Psychiatric exam: Normal Affect, Normal Mood Assessment and Plan (1) Asthmatic bronchitis Status: Acute (2) Exacerbation of asthma Status: Acute (3) GERD (gastroesophageal reflux disease) Status: Chronic (4) Mastoiditis Status: Suspected (5) COPD (chronic obstructive pulmonary disease) Status: Chronic (6) Obesity (BMI 30-39.9) Status: Chronic (7) Debility Status: Acute (8) Debility Status: Acute - Assessment and Plan (Free Text) Plan: Continue present rx
[2017-09-12] MEDS: Enoxaparin 40 mg Syringe SC SCH (09:18)
[2017-09-12] MEDS: Tiotropium 18 mcg Cap For Inhalation INH SCH (09:18)
[2017-09-12] MEDS: Fluticasone-Salmeterol 250-50mcg Diskus IH SCH ×2 (09:20→22:18)
[2017-09-12] MEDS: Pantoprazole 40 mg EC Tab PO SCH (09:21)
--- NOTE | 2017-09-12 12:38 | CP.PCM.PN ---
Subjective - Date & Time of Evaluation Date of Evaluation: 09/12/17 Time of Evaluation: 07:00 - Subjective Subjective: 72 y/o female admitted with several days of feeling sick with cough, SOB and generalized malaise. She notes that she had throat pain and headaches several days ago, but feels better now. Objective - Vital Signs/Intake and Output Vital Signs (last 24 hours): Temp Pulse Resp BP Pulse Ox 98.8 F 60 20 138/65 96 09/12/17 07:46 09/12/17 09:19 09/12/17 07:46 09/12/17 09:20 09/12/17 07:46 - Medications Medications: Current Medications Albuterol Sulfate (Albuterol 0.083% Inhal Yanira (2.5 Mg/3 Ml) Ud) 2.5 mg INH RQ4 PRN PRN Reason: Shortness of Breath Amlodipine Besylate (Norvasc) 5 mg PO DAILY [facility] Last Admin: 09/12/17 09:19 Dose: 5 mg Calcium Carbonate (Oscal) 500 mg PO DAILY [facility] Last Admin: 09/12/17 09:19 Dose: 500 mg Enoxaparin Sodium (Lovenox) 40 mg SC DAILY [facility] PRN Reason: Protocol Last Admin: 09/12/17 09:18 Dose: 40 mg Escitalopram Oxalate (Lexapro) 20 mg PO DAILY [facility] Last Admin: 09/12/17 09:18 Dose: 20 mg Furosemide (Lasix) 20 mg PO DAILY [facility] Last Admin: 09/12/17 09:20 Dose: 20 mg Methylprednisolone (Medrol) 8 mg PO BID [facility] Last Admin: 09/12/17 09:19 Dose: 8 mg Nystatin (Nystop Topical Powder) 1 applic TOP TID [facility] Pantoprazole Sodium (Protonix Ec Tab) 40 mg PO DAILY [facility] Last Admin: 09/12/17 09:21 Dose: 40 mg Fluticasone/Salmeterol (Advair Diskus 250/50) 1 puff IH Q12 [facility] Last Admin: 09/12/17 09:20 Dose: 1 puff Tiotropium [place] (Spiriva) 18 mcg INH DAILY [facility] Last Admin: 09/12/17 09:18 Dose: 18 mcg - Labs Labs: 09/11/17 05:50 - Constitutional Appears: Non-toxic, Chronically Ill - Head Exam Head Exam: NORMOCEPHALIC - Eye Exam Eye Exam: PERRL - ENT Exam ENT Exam: Mucous Membranes Dry - Neck Exam Neck Exam: absent: Lymphadenopathy - Respiratory Exam Respiratory Exam: Decreased Breath Sounds, Clear to Ausculation Bilateral, Prolonged Expiratory Phase - Cardiovascular Exam Cardiovascular Exam: REGULAR RHYTHM, +S1, +S2 - GI/Abdominal Exam GI & Abdominal Exam: Distended, Soft. absent: Tenderness - Rectal Exam Rectal Exam: Deferred - Exam Exam: NORMAL INSPECTION - Extremities Exam Extremities Exam: absent: Pedal Edema - Back Exam Back Exam: absent: CVA tenderness (L), CVA tenderness (R) - Neurological Exam Neurological Exam: Alert, Awake, Oriented x3 Neuro motor strength exam: Left Upper Extremity: 5, Right Upper Extremity: 5, Left Lower Extremity: 5, Right Lower Extremity: 5 - Psychiatric Exam Psychiatric exam: Normal Mood - Skin Skin Exam: Dry Assessment and Plan (1) Acute rhinosinusitis Status: Acute (2) Bronchitis Status: Acute (3) Chronic bronchitis with acute exacerbation Status: Acute (4) Cough Status: Acute (5) Exacerbation of asthma Status: Acute (6) Mastoiditis Status: Suspected (7) Pneumonia Status: Acute - Assessment and Plan (Free Text) Assessment: cont rx as out pt
--- NOTE | 2017-09-12 12:48 | CP.PCM.PN ---
Subjective - Date & Time of Evaluation Date of Evaluation: 09/12/17 Time of Evaluation: 14:00 - Subjective Subjective: Patient in good spirit comfortable not in distress Objective - Vital Signs/Intake and Output Vital Signs (last 24 hours): Temp Pulse Resp BP Pulse Ox 98.8 F 60 20 138/65 96 09/12/17 07:46 09/12/17 09:19 09/12/17 07:46 09/12/17 09:20 09/12/17 07:46 - Medications Medications: Current Medications Albuterol Sulfate (Albuterol 0.083% Inhal Yanira (2.5 Mg/3 Ml) Ud) 2.5 mg INH RQ4 PRN PRN Reason: Shortness of Breath Amlodipine Besylate (Norvasc) 5 mg PO DAILY [facility] Last Admin: 09/12/17 09:19 Dose: 5 mg Calcium Carbonate (Oscal) 500 mg PO DAILY [facility] Last Admin: 09/12/17 09:19 Dose: 500 mg Enoxaparin Sodium (Lovenox) 40 mg SC DAILY [facility] PRN Reason: Protocol Last Admin: 09/12/17 09:18 Dose: 40 mg Escitalopram Oxalate (Lexapro) 20 mg PO DAILY [facility] Last Admin: 09/12/17 09:18 Dose: 20 mg Furosemide (Lasix) 20 mg PO DAILY [facility] Last Admin: 09/12/17 09:20 Dose: 20 mg Methylprednisolone (Medrol) 8 mg PO BID [facility] Last Admin: 09/12/17 09:19 Dose: 8 mg Nystatin (Nystop Topical Powder) 1 applic TOP TID [facility] Pantoprazole Sodium (Protonix Ec Tab) 40 mg PO DAILY [facility] Last Admin: 09/12/17 09:21 Dose: 40 mg Fluticasone/Salmeterol (Advair Diskus 250/50) 1 puff IH Q12 [facility] Last Admin: 09/12/17 09:20 Dose: 1 puff Tiotropium [place] (Spiriva) 18 mcg INH DAILY [facility] Last Admin: 09/12/17 09:18 Dose: 18 mcg - Labs Labs: 09/11/17 05:50 - Constitutional Appears: No Acute Distress - Head Exam Head Exam: ATRAUMATIC, NORMAL INSPECTION, NORMOCEPHALIC - Eye Exam Eye Exam: Normal appearance - ENT Exam ENT Exam: Mucous Membranes Moist - Respiratory Exam Respiratory Exam: Clear to Ausculation Bilateral - Cardiovascular Exam Cardiovascular Exam: REGULAR RHYTHM, +S1, +S2 - GI/Abdominal Exam GI & Abdominal Exam: Soft, Normal Bowel Sounds - Extremities Exam Extremities Exam: Full ROM - Neurological Exam Neurological Exam: Alert, Awake, CN II-XII Intact, Normal Gait, Oriented x3 - Psychiatric Exam Psychiatric exam: Normal Affect - Skin Skin Exam: Normal Color Assessment and Plan (1) Asthmatic bronchitis Status: Acute (2) Exacerbation of asthma Status: Acute (3) GERD (gastroesophageal reflux disease) Status: Chronic (4) Mastoiditis Status: Suspected (5) COPD (chronic obstructive pulmonary disease) Status: Chronic (6) Obesity (BMI 30-39.9) Status: Chronic (7) Debility Status: Acute (8) Debility Status: Acute - Assessment and Plan (Free Text) Plan: Patient improving on present rx
--- NOTE | 2017-09-12 14:08 | CP.PCM.PN ---
Subjective - Date & Time of Evaluation Date of Evaluation: 09/12/17 Time of Evaluation: 14:08 - Subjective Subjective: Seated in a bedside chair. Mood is good. Patient is able to participate in physical therapy and ambulates on the unit. Offers no complaints of respiratory difficulties at this time. Breath sounds are diminished but otherwise unremarkable bilaterally. No further wheezes. Occasional dry rales are heard in the posterior lower lung zones bilaterally. Corticosteroids have been reduced to a once daily dose and may be switched to oral at any time. Objective - Vital Signs/Intake and Output Vital Signs (last 24 hours): Temp Pulse Resp BP Pulse Ox 98.8 F 60 20 138/65 96 09/12/17 07:46 09/12/17 09:19 09/12/17 07:46 09/12/17 09:20 09/12/17 07:46 - Medications Medications: Current Medications Albuterol Sulfate (Albuterol 0.083% Inhal [place] (2.5 Mg/3 Ml) Ud) 2.5 mg INH RQ4 PRN PRN Reason: Shortness of Breath Amlodipine Besylate (Norvasc) 5 mg PO DAILY [facility] Last Admin: 09/12/17 09:19 Dose: 5 mg Calcium Carbonate (Oscal) 500 mg PO DAILY [facility] Last Admin: 09/12/17 09:19 Dose: 500 mg Enoxaparin Sodium (Lovenox) 40 mg SC DAILY [facility] PRN Reason: Protocol Last Admin: 09/12/17 09:18 Dose: 40 mg Escitalopram Oxalate (Lexapro) 20 mg PO DAILY [facility] Last Admin: 09/12/17 09:18 Dose: 20 mg Furosemide (Lasix) 20 mg PO DAILY [facility] Last Admin: 09/12/17 09:20 Dose: 20 mg Methylprednisolone (Medrol) 8 mg PO BID [facility] Last Admin: 09/12/17 09:19 Dose: 8 mg Nystatin (Nystop Topical Powder) 1 applic TOP TID [facility] Pantoprazole Sodium (Protonix Ec Tab) 40 mg PO DAILY [facility] Last Admin: 09/12/17 09:21 Dose: 40 mg Fluticasone/Salmeterol (Advair Diskus 250/50) 1 puff IH Q12 [facility] Last Admin: 09/12/17 09:20 Dose: 1 puff Tiotropium [place] (Spiriva) 18 mcg INH DAILY [facility] Last Admin: 09/12/17 09:18 Dose: 18 mcg - Labs Labs: 09/11/17 05:50 Assessment and Plan (1) Chronic bronchitis with acute exacerbation Status: Acute (2) Posterior rhinorrhea Status: Acute
[2017-09-13] MEDS: Fluticasone-Salmeterol 250-50mcg Diskus IH SCH (09:35)
[2017-09-13] MEDS: Tiotropium 18 mcg Cap For Inhalation INH SCH (09:35)
[2017-09-13] MEDS: Enoxaparin 40 mg Syringe SC SCH (09:36)
[2017-09-13] MEDS: Pantoprazole 40 mg EC Tab PO SCH (09:37)
--- NOTE | 2017-09-13 11:28 | CP.PCM.DIS ---
Provider - Provider Date of Admission: 09/05/17 14:18 Attending physician: José Luis Camilo MD Time Spent in preparation of Discharge (in minutes): 30 Diagnosis - Discharge Diagnosis (1) Asthmatic bronchitis Status: Acute (2) Exacerbation of asthma Status: Acute (3) GERD (gastroesophageal reflux disease) Status: Chronic (4) Mastoiditis Status: Suspected (5) COPD (chronic obstructive pulmonary disease) Status: Chronic (6) Obesity (BMI 30-39.9) Status: Chronic (7) Debility Status: Acute (8) Debility Status: Acute Hospital Course - Lab Results Lab Results: Most Recent Lab Values Sodium 138 mmol/l (132-148) 09/11/17 05:50 Potassium 4.0 MMOL/L (3.6-5.0) 09/11/17 05:50 Chloride 98 mmol/L (98-107) 09/11/17 05:50 Carbon Dioxide 31 mmol/L (22-30) H 09/11/17 05:50 Anion Gap 13 (10-20) 09/11/17 05:50 BUN 17 mg/dl (7-17) 09/11/17 05:50 Creatinine 0.5 mg/dl (0.7-1.2) L 09/11/17 05:50 Est GFR ( Amer) > 60 09/11/17 05:50 Est GFR (Non-Af Amer) > 60 09/11/17 05:50 Random Glucose 133 mg/dL (65-105) H 09/11/17 05:50 Calcium 7.8 mg/dL (8.4-10.2) L 09/11/17 05:50 - Hospital Course Hospital Course: 72 y/o lady with hx of depression, htn, gerd, morbid obesity presented in ER with severe dyspnea of sudden onset, associated with cough, sob, tachypnea and choking sensation. Exacerbation of COPD. Patient improved on iv steroid and antibx. She was admitted in TCU for PT and continuation of the rx. She well responded to rx. Will dc home, f/u with PMD in 4 days. Discharge Exam - Head Exam Head Exam: ATRAUMATIC, NORMAL INSPECTION, NORMOCEPHALIC - Eye Exam Eye Exam: Normal appearance - ENT Exam ENT Exam: Mucous Membranes Moist - Neck Exam Neck exam: Full Rom - Respiratory Exam Respiratory Exam: Clear to PA & Lateral - Cardiovascular Exam Cardiovascular Exam: REGULAR RHYTHM, +S1, +S2 - GI/Abdominal Exam GI & Abdominal Exam: Normal Bowel Sounds - Extremities Exam Extremities exam: normal inspection - Neurological Exam Neurological exam: Alert, CN II-XII Intact, Normal Gait, Oriented x3, Reflexes Normal - Psychiatric Exam Psychiatric exam: Normal Affect - Skin Skin Exam: Normal Color Discharge Plan - Follow Up Plan Condition: GOOD Disposition: HOME/ ROUTINE Instructions: Preventing Falls in the Older Adult, Pneumonia, Adult (DC) Additional Instructions: discharge home today. followup with PMD. Dr. Camilo in one week, 201
[2017-09-13 12:40] LABS: BLOOD UREA NITROGEN 18 mg/dl (7-17); CALCIUM 8.7 mg/dL (8.4-10.2); GFR AFRICAN-AMERICAN > 60; GFR NON-AFRICAN AMERICAN > 60
[2017-09-13 17:28] VITALS: BP 129/65; PULSE 67; TEMP 98.2; O2SAT 95
== END 2017-09-13 20:33 | disposition home or self-care (01) | DRG 190 ==
LOC: H.TCU 14:18
PROVIDERS: ADMIT Internal Medicine; ATTEND Internal Medicine
PROC: 3E03329 Introduction of Other Anti-infective into Peripheral Vein, Percutaneous Approach (ICD-10-PCS; principal; 2017-09-05)
PROC: F08Z4FZ Home Management Treatment using Assistive, Adaptive, Supportive or Protective Equipment (ICD-10-PCS; 2017-09-05)
PROC: 3E0F7GC Introduction of Other Therapeutic Substance into Respiratory Tract, Via Natural or Artificial Opening (ICD-10-PCS; 2017-09-05)
DX: J44.0 Chronic obstructive pulmonary disease with (acute) lower respiratory infection (principal); J18.9 Pneumonia, unspecified organism; I11.0 Hypertensive heart disease with heart failure; J45.901 Unspecified asthma with (acute) exacerbation; E66.01 Morbid (severe) obesity due to excess calories; I50.9 Heart failure, unspecified; H70.90 Unspecified mastoiditis, unspecified ear; J44.1 Chronic obstructive pulmonary disease with (acute) exacerbation; K21.9 Gastro-esophageal reflux disease without esophagitis; Z87.01 Personal history of pneumonia (recurrent); Z87.891 Personal history of nicotine dependence; Z95.5 Presence of coronary angioplasty implant and graft; F32.9 Major depressive disorder, single episode, unspecified; F45.9 Somatoform disorder, unspecified; M19.90 Unspecified osteoarthritis, unspecified site; Z68.30 Body mass index [BMI] 30.0-30.9, adult; E78.00 Pure hypercholesterolemia, unspecified; R53.81 Other malaise